=== PATIENT | male | born 1940 | race Caucasian/White ===

== ENCOUNTER 2018-10-13 18:20 | Inpatient (IN) | payer OTHER ==
--- NOTE | 2018-10-13 18:30 | PDOC ---
Attending Attestation - Resident Resident Name: Connie Youngrosalesromeo - ED Attending Attestation I have performed the following: I have examined & evaluated the patient, The case was reviewed & discussed with the resident, I agree w/resident's findings & plan, Exceptions are as noted - HPI HPI: 10/13/18 18:29 78 yo male BIBA from [facility] for sepsis,AMS and ekg changes - Physicial Exam PE: 10/13/18 18:45 78 yo male BIBA with fever,AMS head ncat eyes marcin eomi neck supple lungs rhonchi cvs tachycardia abd protuberant,no guarding skin no erythema neuro nonresponsive upon arrival 10/13/18 23:44 - Medical Decision Making 10/13/18 23:56 Critical care time++ temp 104.2, sepsis work up started UA neg cxr +infiltrates pt initially placed on bipap upon arrival then on nonrebreather ,oxygenation improved trop negative cbc leukocytosis, antibiotics given, BC sent and pt admitted 10/13/18 23:58
--- NOTE | 2018-10-13 18:44 | PDOC ---
History of Present Illness - General Chief Complaint: SIRS, Suspected/Possible Stated Complaint: SICK Time Seen by Provider: 10/13/18 18:29 - History of Present Illness Initial Comments: 78 year old male with PMH of spinal cancer and, COPD, DM presenting with hypoxic respiratory failure and audible adventitious respiratory sounds bilaterally. There were some mild ST elevations on the rhythm strip by EMS so there was concern for STEMI, however that was not evidenced on our stat EKG performed. The patient was slightly altered, mumbling inaudible sounds and making purposeful hand movements with occasional spontaneous eye movements. He was on CPAP without SATs to the low 90s and following commands but non conversational. Per conversation with Shalom Lopez his baseline mental status is following commands but non-conversational. They deny any nausea, vomiting, diarrhea, or other issues at the home. 10/13/18 18:44 Past History - Past Medical History Allergies/Adverse Reactions: Allergies Allergy/AdvReac Type Severity Reaction Status Date / Time No Known Allergies Allergy Verified 10/13/18 18:30 Home Medications: Ambulatory Orders Amlodipine Besylate 10 mg PO DAILY 10/13/18 Folic Acid 1 mg PO DAILY 10/13/18 Insulin Glargine,Hum.rec.anlog [Lantus] 15 unit SQ HS 10/13/18 Linaclotide [Linzess] 145 mcg PO DAILY 10/13/18 Metoprolol Tartrate 50 mg PO BID 10/13/18 Quetiapine Fumarate 12.5 mg PO DAILY 10/13/18 Quetiapine Fumarate [Seroquel -] 25 mg PO HS 10/13/18 Simvastatin 20 mg PO HS 10/13/18 Tamsulosin HCl [Flomax] 0.4 mg PO DAILY 10/13/18 Timolol 0.5% [Timoptic] 0 ml OP DAILY 10/13/18 levETIRAcetam [Keppra -] 500 mg PO BID 10/13/18 COPD: No GI Disorders: (constipation) Disorders: Yes (enlarged prostate) HTN: Yes Hypercholesterolemia: Yes - Suicide/Smoking/Psychosocial Hx Smoking History: Unknown if ever smoked Have you smoked in the past 12 months: No Information on smoking cessation initiated: No Hx Alcohol Use: No Drug/Substance Use Hx: No Review of Systems - Review of Systems Able to Perform ROS?: No (demented at baseline) *Physical Exam - Vital Signs Last Vital Signs Temp Pulse Resp BP Pulse Ox 104.2 F H 109 H 29 H 125/69 94 L 10/13/18 18:40 10/13/18 18:30 10/13/18 18:30 10/13/18 18:30 10/13/18 18:30 - Physical Exam General Appearance: Yes: Nourished, Appropriately Dressed, Apparent Distress, Moderate Distress (respiratory distress) HEENT: positive: EOMI, Normal ENT Inspection. negative: TINO (bilateral pupillary defects likely with previous surgery), Normal Voice Neck: positive: Trachea midline, Normal Thyroid, Supple. negative: Tender, Rigid Respiratory/Chest: positive: Respiratory Distress, Accessory Muscle Use. negative: Lungs Clear (blateral adventitious lung sounds with transmission of upper airway sounds throughout lung verde), Normal Breath Sounds Cardiovascular: positive: Regular Rhythm, Tachycardia. negative: Regular Rate Gastrointestinal/Abdominal: positive: Normal Bowel Sounds, Flat, Soft. negative : Tender Male Genitalia: negative: normal genitalia (erythematous scrotum and penis with casseous material around the glans penis under irwin easily retractible foreskin) , testicular mass, inguinal hernia Lymphatic: negative: Adenopathy, Tenderness Musculoskeletal: positive: Normal Inspection (fairly rigid with resistance on passive movements and occasioanlly following commands), Decreased Range of Motion Extremity: positive: Normal Capillary Refill. negative: Normal Inspection, Normal Range of Motion, Tender Integumentary: positive: Normal Color, Dry, Warm Neurologic: positive: Normal Mood/Affect. negative: Fully Oriented, Alert, Normal Response, Motor Strength 5/5 Moderate Sedation - Procedure Monitoring Vital Signs: Procedure Monitoring Vital Signs Temperature 104.2 F H 10/13/18 18:40 Pulse Rate 109 H 10/13/18 18:30 Respiratory Rate 29 H 10/13/18 18:30 Blood Pressure 125/69 10/13/18 18:30 O2 Sat by Pulse Oximetry (%) 94 L 10/13/18 18:30 ED Treatment Course - LABORATORY CBC & Chemistry Diagram: 10/13/18 18:33 10/13/18 18:33 Medical Decision Making - Medical Decision Making 78 year old male presenting in hypoxic respiratory failure and baseline moderately demented. He was febrile to 104 on presentation and tachycardic. the majority of his symptoms resolved with 1 G IV Tylenol. He was protecting his airway on admission and he was doing well on BiPap so we transitioned him to non -rebreather. His CXR was read as negative but there appeared to be an infiltrate a the left medial lung base concerning for PNA in the setting of hypoxic respiratory failure and productive cough. Patien given vanc, zosyn. 10/13/18 21:16 CTA negative for PE but he did have a right lower lobe PNA. Patient transferred to ICU in stable condition. 10/13/18 23:47 *DC/Admit/Observation/Transfer Diagnosis at time of Disposition: Sepsis due to pneumonia - Discharge Dispostion Condition at time of disposition: Stable Decision to Admit order: Yes - Referrals - Patient Instructions - Post Discharge Activity
[2018-10-13 18:47] LABS: BASO % 0.2 % (0-2.0); HEMATOCRIT 49.7 % (35.4-49); HEMOGLOBIN 16.8 GM/dL (11.7-16.9); LYMPH % 3.8 % (8-40); MCH 29.8 pg (25.7-33.7); MCHC 33.7 g/dl (32.0-35.9); MEAN CELL VOLUME 88.3 fl (80-96); MEAN PLT VOLUME 10.6 fl (7.5-11.1); MONO % 4.4 % (3.8-10.2); NEUT % 91.6 % (42.8-82.8); PLATELET COUNT 160 K/MM3 (134-434); RBC 5.63 M/mm3 (4.00-5.60); RDW 15.1 % (11.9-15.9)
[2018-10-13 18:55] LABS: VENOUS PC02 48.1 mmHg (38-52); VENOUS PH 7.31 (7.32-7.42)
[2018-10-13 18:56] LABS: VENOUS PO2 24.3 mmHg (28-48)
[2018-10-13 19:01] LABS: INR 1.23 (0.83-1.09); PROTHROMBIN TIME (PATIENT) 14.5 SEC (9.7-13.0)
[2018-10-13 19:03] LABS: ACTIVATED PTT 29.4 SECONDS (25.2-36.5)
[2018-10-13 19:10] LABS: URINE APPEARANCE CLEAR; URINE BILIRUBIN NEGATIVE (<2.0 mg/dL); URINE COLOR YELLOW; URINE GLUCOSE (UA) 3+ (NEGATIVE); URINE KETONE TRACE (NEGATIVE); URINE LEUK ESTERASE NEGATIVE (NEGATIVE); URINE NITRITE NEGATIVE (NEGATIVE); URINE PROTEIN NEGATIVE (NEGATIVE)
[2018-10-13 19:23] LABS: URINE MUCUS RARE
[2018-10-13 19:38] LABS: ALBUMIN 3.7 g/dl (3.4-5.0); ALK PHOS 129 U/L (45-117); ANION GAP 12 MMOL/L (8-16); BILIRUBIN,TOTAL 0.5 mg/dL (0.2-1); BLOOD UREA NITROGEN 13 mg/dL (7-18); CALCIUM 8.8 mg/dL (8.5-10.1); CHLORIDE 104 mmol/L (98-107); CO2 23 mmol/L (21-32); CREATININE 1.3 mg/dL (0.55-1.3); POTASSIUM 4.1 mmol/L (3.5-5.1); SGOT/AST 34 U/L (15-37); SGPT/ALT 37 U/L (13-61); SODIUM 139 mmol/L (136-145); TOT PROT 7.3 g/dl (6.4-8.2)
[2018-10-13 19:40] LABS: GLUCOSE,RANDOM 385 mg/dL (74-106)
[2018-10-13] MEDS ORDERED: VANCOMYCIN HCL 2,000 MG in DEXTROSE 5%-WATER - 500 ML IVPB ONE (19:50)
[2018-10-13] MEDS ORDERED: PIPERACILLIN/TAZOB 4.5 GM 4.5 GM in DEXTROSE 5%-WATER 100 ML IVPB ONE (19:52)
--- NOTE | 2018-10-13 20:04 | CONSULT ---
Consult Consult Specialty:: ICU Reason for Consultation:: Sepsis 2/2 PNA - History of Present Illness Chief Complaint: shortness of breath and AMS History of Present Illness: 78 yo M with significant PMHx of IDDM, HTN, HLD and benign neoplasm of spinal meninges presents from [facility] with acute respiratory failure. From chart patient was found to be in respiratory distress and AMS. EMS was called and found patient's O2 sat was in 70's. He was placed on CPAP and transported to [facility]. Upon arrival patient was found to febrile TMax 104 and tachypneic RR 29. According to NH patient at baseline is able to follow simple commands but not conversational. He was initially placed on NIPPV in ER and clinical condition improved. CT chest shows RLL PNA. O2 sat improved to 99% and patient was transitioned to Non rebreather and saturation was 97%. - History Source History Provided By: Medical Record - Past Medical History GRADUATE FELLOW: Yes: Seizure Cardio/Vascular: Yes: HTN, Hyperlipdemia Renal/: Yes: BPH Heme/Onc: Yes: Cancer (benign neoplasm of spinal meninges. ) Psych: Yes: Bipolar Endocrine: Yes: Diabetes Mellitus - Alcohol/Substance Use Hx Alcohol Use: No - Smoking History Smoking history: Unknown if ever smoked Have you smoked in the past 12 months: No - Social History Usual Living Arrangement: Senior Living ADL: Support Services History of Recent Travel: No Home Medications - Allergies Allergies/Adverse Reactions: Allergies Allergy/AdvReac Type Severity Reaction Status Date / Time No Known Allergies Allergy Verified 10/13/18 18:30 - Home Medications Home Medications: Ambulatory Orders Amlodipine Besylate 10 mg PO DAILY 10/13/18 Folic Acid 1 mg PO DAILY 10/13/18 Insulin Glargine,Hum.rec.anlog [Lantus] 15 unit SQ HS 10/13/18 Linaclotide [Linzess] 145 mcg PO DAILY 10/13/18 Metoprolol Tartrate 50 mg PO BID 10/13/18 Quetiapine Fumarate [Seroquel -] 25 mg PO HS 10/13/18 Simvastatin 20 mg PO HS 10/13/18 Tamsulosin HCl [Flomax] 0.4 mg PO DAILY 10/13/18 Timolol 0.5% [Timoptic] 1 drop OU DAILY 10/13/18 levETIRAcetam [Keppra -] 1,000 mg PO BID 10/13/18 Brimonidine/Dorzolamide/Pf [Brimonidine 0.15%-Dorzolam 2%] 1 drop OP TID Quetiapine Fumarate [Seroquel -] 12.5 mg PO DAILY 10/14/18 Family Disease History - Family Disease History Family History: Unable to Obtain Review of Systems Unable to obtain ROS, reason: clincal condition. Physical Exam Vital Signs: Vital Signs Temperature 104.2 F H 10/13/18 18:40 Pulse Rate 109 H 10/13/18 18:30 Respiratory Rate 29 H 10/13/18 18:30 Blood Pressure 125/69 10/13/18 18:30 O2 Sat by Pulse Oximetry (%) 94 L 10/13/18 18:30 Constitutional: Yes: Mild Distress Eyes: Yes: Conjunctiva Clear, Other (right pupil deformity) HENT: Yes: Atraumatic, Normocephalic Neck: Yes: Supple, Trachea Midline Cardiovascular: Yes: Regular Rate and Rhythm, S1, S2. No: JVD, Gallop, Murmur Respiratory: Yes: Diminished, On Venti-Mask, Rales, Rhonchi. No: Accessory Muscle Use Gastrointestinal: Yes: Normal Bowel Sounds, Soft, Abdomen, Obese. No: Distention, Tenderness Renal/: Yes: Navarro Present, Other (penile erythema) Extremities: No: Calf Tenderness, Cold, Cyanosis, Deformity Edema: No Peripheral Pulses WNL: Yes Neurological: Yes: Lethargy, Unsteady Gait, Weakness Labs: CBC, BMP 10/13/18 18:33 10/13/18 18:33 Imaging - Results Chest X-ray: Report Reviewed, Image Reviewed Cat Scan: Image Reviewed (RLL consolidation) EKG: Image Reviewed (Sinus Tach rate 112, left axis, nonspecific Intraventricular block. no st elevation or depression.) Assessment/Plan A:78 yo M with significant PMHx of IDDM, HTN, HLD and benign neoplasm of spinal meninges presents from [facility] with acute respiratory failure found to be septic 2/2 PNA. Plan: NEURO: * lethargic but arousable. * baseline is non-conversational and able to follow simple command. * Does not ambulate at baseline * H/O seizure disorder; continue Levetiracetam 1000mg BID * Bipolar disorder; continue Quetiapine 25mg HS and 12.5 AM. * Neuro checks Q4H PULM: * Acute hypoxic respiratory failure 2/2 RLL PNA * supplemental O2 PRN * VBG shows pH 7.31 Co248.1, O2 24.3 * maintain SpO2>90% * BD TX PRN * Vanco/Zosyn given in ER. * qSOFA 2/3 respiratory rate and AMS, but SBP >90 * Pneumonia severity index score 171 Class V which constitutes 27% mortality. CV: * H/O HTN and HLD * continue amlodipine 10 and metroprolol 50mg BID * Continue Simvastatin HS * BP has been stable- monitor and maintain MAP >65 GI: * ADA diet. * Continue Linzess ID: * Sepsis 2/2 to RLL PNA * health care associated infection. * Vanco/Zosyn empiracally in ER * Influenza A positive - start Oseltamivir. * Blood, urine and sputum cultures sent. * Urine for PNA antigens. * Lactic acid 3.2- repeat in 4 hrs ENDO: * IDDM * found to be hyperglycemic (385) but not in DKA. * ADA diet * ISS with Novolog ACHS * BGM ACHS FEN: * IVF with NS- need 30ml/kg as per Sepsis-3 EGDT = 3L * e-lytes wnl will continue to monitor and replete PRN * ADA diet. PPx: * Heparin SQ TID DISPO: Continue ICU level of care. FULL CODE
[2018-10-13] MEDS ORDERED: ALBUTEROL SO4 2.5/IPRATROPIUM 0.5 INH SOL 3 ML VIAL.NEB. NEB ONE ×2 (21:16→22:04)
[2018-10-13 21:17] LABS: PLATELET ESTIMATE ADEQUATE
[2018-10-13] MEDS ORDERED: PIPERACILLIN/TAZOB 4.5 GM 4.5 GM/100 ML BAG IVPB ONE (21:50)
--- NOTE | 2018-10-13 22:22 | HP ---
CHIEF COMPLAINT: Here from a correction with hypoxia and high grade fever. PCP:Dr. Sandy HISTORY OF PRESENT ILLNESS: 78 year old male from a custodial nursing facility with past medical history of spinal cancer(unknown if undergoing treatment), COPD, and diabetes mellitus who presented with an altered mental status, hypoxic respiratory failure with audible adventitious respiratory sounds, fever and tachycardia. He was initially placed on CPAP with saturations improving to the low 90s and he became more responsive but was non conversational. As per his PCP his baseline mental status is following commands but non-conversational. Upon evaluation in the emergency room he was febrile with a temperature of 104.2 , WBC 14,000, lactic acid is 3.2. CXR showed no acute pathology. He was given one dose of IV Tylenol for fever. He received one dosage of IV vancomycin and pipercillin. He was weaned off CPAP and placed on a 100% nonrebreather and now maintaining oxygen saturation at 94%. He is pending a CT angiogram of chest to exclude pulmonary embolism in setting of hypoxia, tachycardia and malignancy and CT scan of head. He is being admitted to ICU for critical care management . Recent Travel:unable to obtain PAST MEDICAL HISTORY: spinal cancer COPD diabetes mellitus PAST SURGICAL HISTORY: unable to obtain Social History: unable to obtain Family History:unable to obtain Allergies No Known Allergies Allergy (Verified 10/13/18 18:30) HOME MEDICATIONS: unobtainable REVIEW OF SYSTEMS-unable to obtain accurate ROS due to patient mental status CONSTITUTIONAL: Absent: fever, chills, diaphoresis, generalized weakness, malaise, loss of appetite, weight change HEENT: Absent: rhinorrhea, nasal congestion, throat pain, throat swelling, difficulty swallowing, mouth swelling, ear pain, eye pain, visual changes CARDIOVASCULAR: Absent: chest pain, syncope, palpitations, irregular heart rate, lightheadedness , peripheral edema RESPIRATORY: Absent: cough, shortness of breath, dyspnea with exertion, orthopnea, wheezing, stridor, hemoptysis GASTROINTESTINAL: Absent: abdominal pain, abdominal distension, nausea, vomiting, diarrhea, constipation, melena, hematochezia GENITOURINARY: Absent: dysuria, frequency, urgency, hesitancy, hematuria, flank pain, genital pain MUSCULOSKELETAL: Absent: myalgia, arthralgia, joint swelling, back pain, neck pain SKIN: Absent: rash, itching, pallor HEMATOLOGIC/IMMUNOLOGIC: Absent: easy bleeding, easy bruising, lymphadenopathy, frequent infections ENDOCRINE: Absent: unexplained weight gain, unexplained weight loss, heat intolerance, cold intolerance NEUROLOGIC: Absent: headache, focal weakness or paresthesias, dizziness, unsteady gait, seizure, mental status changes, bladder or bowel incontinence PSYCHIATRIC: Absent: anxiety, depression, suicidal or homicidal ideation, hallucinations. PHYSICAL EXAMINATION Vital Signs - 24 hr 10/13/18 10/13/18 10/13/18 18:20 18:28 18:30 Temperature 104.2 F H 104.2 F H Pulse Rate 112 H 109 H Pulse Rate [ 72 Apical] Respiratory 24 H 29 H Rate Blood Pressure 125/69 Blood Pressure 105/82 [Right Arm] O2 Sat by Pulse 94 L 92 L 94 L Oximetry (%) 10/13/18 10/13/18 18:40 20:07 Temperature 104.2 F H 102 F H Pulse Rate Pulse Rate [ 90 Apical] Respiratory 22 H Rate Blood Pressure Blood Pressure 105/82 [Right Arm] O2 Sat by Pulse 94 L Oximetry (%) GENERAL: nonverbal, arousable but very lethargic, minimally opens eyes to verbal or tactile command EYES: eyes equal and round, minimally reactive Lungs: coarse breath sounds, no wheezing no use of accessory muscles HEART: rate tachycardic and rhythm, normal S1 and S2 ABDOMEN: soft, nontender, not distended, normoactive bowel sounds MUSCULOSKELETAL: limited ROM UPPER EXTREMITIES :no cyanosis, no clubbing. LOWER EXTREMITIES: warm to palpation no pitting edema. NEUROLOGICAL: does not follow verbal commands SKIN: warm, dry, normal turgor, no rashes or lesions noted, normal capillary refill Laboratory Results - last 24 hr 10/13/18 10/13/18 10/13/18 18:33 18:33 18:33 WBC 14.0 H RBC 5.63 H Hgb 16.8 Hct 49.7 H MCV 88.3 MCH 29.8 MCHC 33.7 RDW 15.1 Plt Count 160 MPV 10.6 Absolute Neuts (auto) 12.8 H Total Counted 100 Neutrophils % 91.6 H Neutrophils % (Manual) 67.0 Band Neutrophils % 21.0 Lymphocytes % 3.8 L Lymphocytes % (Manual) 4.0 L Monocytes % 4.4 Monocytes % (Manual) 7 Eosinophils % 0.0 Basophils % 0.2 Nucleated RBC % 0 Platelet Estimate Adequate PT with INR 14.50 H INR 1.23 H PTT (Actin FS) 29.4 VBG pH POC VBG pCO2 POC VBG pO2 Mixed VBG HCO3 Sodium Potassium Chloride Carbon Dioxide Anion Gap BUN Creatinine Creat Clearance w eGFR Random Glucose Lactic Acid Calcium Total Bilirubin AST ALT Alkaline Phosphatase Troponin I B-Natriuretic Peptide Total Protein Albumin Urine Color Yellow Urine Appearance Clear Urine pH 6.0 Ur Specific [place] 1.016 Urine Protein Negative Urine Glucose (UA) 3+ H Urine Ketones Trace H Urine Blood 1+ H Urine Nitrite Negative Urine Bilirubin Negative Urine Urobilinogen 2.0 Ur Leukocyte Esterase Negative Urine WBC (Auto) 1 Urine RBC (Auto) <1 Urine Mucus Rare 10/13/18 10/13/18 10/13/18 18:33 18:33 18:33 WBC RBC Hgb Hct MCV MCH MCHC RDW Plt Count MPV Absolute Neuts (auto) Total Counted Neutrophils % Neutrophils % (Manual) Band Neutrophils % Lymphocytes % Lymphocytes % (Manual) Monocytes % Monocytes % (Manual) Eosinophils % Basophils % Nucleated RBC % Platelet Estimate PT with INR INR PTT (Actin FS) VBG pH 7.31 L POC VBG pCO2 48.1 POC VBG pO2 24.3 L Mixed VBG HCO3 23.6 Sodium 139 Potassium 4.1 Chloride 104 Carbon Dioxide 23 Anion Gap 12 BUN 13 Creatinine 1.3 Creat Clearance w eGFR 53.67 Random Glucose 385 H* Lactic Acid 3.2 H* Calcium 8.8 Total Bilirubin 0.5 AST 34 ALT 37 Alkaline Phosphatase 129 H Troponin I B-Natriuretic Peptide Total Protein 7.3 Albumin 3.7 Urine Color Urine Appearance Urine pH Ur Specific [place] Urine Protein Urine Glucose (UA) Urine Ketones Urine Blood Urine Nitrite Urine Bilirubin Urine Urobilinogen Ur Leukocyte Esterase Urine WBC (Auto) Urine RBC (Auto) Urine Mucus 10/13/18 10/13/18 18:33 19:41 WBC RBC Hgb Hct MCV MCH MCHC RDW Plt Count MPV Absolute Neuts (auto) Total Counted Neutrophils % Neutrophils % (Manual) Band Neutrophils % Lymphocytes % Lymphocytes % (Manual) Monocytes % Monocytes % (Manual) Eosinophils % Basophils % Nucleated RBC % Platelet Estimate PT with INR INR PTT (Actin FS) VBG pH POC VBG pCO2 POC VBG pO2 Mixed VBG HCO3 Sodium Potassium Chloride Carbon Dioxide Anion Gap BUN Creatinine Creat Clearance w eGFR Random Glucose Lactic Acid Calcium Total Bilirubin AST ALT Alkaline Phosphatase Troponin I 0.02 B-Natriuretic Peptide 560.5 H Total Protein Albumin Urine Color Urine Appearance Urine pH Ur Specific [place] Urine Protein Urine Glucose (UA) Urine Ketones Urine Blood Urine Nitrite Urine Bilirubin Urine Urobilinogen Ur Leukocyte Esterase Urine WBC (Auto) Urine RBC (Auto) Urine Mucus ASSESSMENT/PLAN: Mr. Chatman is a 78 year old male here from a custodial nursing facility with past medical history of spinal cancer(unknown if undergoing treatment), COPD, hypertension, hyperlipidemia, and diabetes mellitus who presented with an altered mental status, hypoxic respiratory failure with audible adventitious respiratory sounds, fever and tachycardia. He was initially placed on CPAP with saturations improving to the low 90s and he became more responsive but was non conversational. He is being admitted to ICU for acute hypoxic respiratory failure in the setting of sepsis. Acute Hypoxic Respiratory Failure Currently on 100% nonrebreather and maintaining oxygen saturation at 94%, nondyspneic,no use of accessory muscles. On physical exam does not appear to be fluid overloaded despite BNP is 560. Continue with nonrebreather mask to maintain oxygen saturation levels >92%, may require BIPAP if desaturates.Mental status is very lethargic and minimally responsive and nonverbal and likely due to sepsis. CTangiogram is pending to exclude pulmonary embolism in the setting of hypoxia, tachycardia and malignancy. Pulmonary consulted- Dr. Barragan Management as per critical care team. Leukocytosis VBG c02- 48, febrile with elevated lactic acid level of 3.2, no evidence of hypotension, reveived IV fluids and IV vancomycin and pipercillin. UA-negative nitrate and leukoesterase. Blood and urine cultures are pending. Continue with IV pipercillin. Infectious Disease consulted- Dr. Simmons. COPD Exacerbation Continue with albuterol nebulizer treatments q6hr. Manage as per critical care team. Pulmonary Consulted. Altered Mental Status CT scan of head completed, pending review. At baseline patient is nonconversative. Hypertension Controlled.No evidence of hypotension. Continue amlodipine and metoprolol. Diabetes Mellitus Uncontrolled. Accucheks in am and at bedtime. Continue with glargine and insulin as per sliding scale. Check hemoglobin A1c. Hyperlipidemia Continue with statin therapy.LFT's normal. BPH Continue with tamulosin. FEN IVF, NPO, monitor electrolytes. DVT Prophylaxsis SCD's. If CT scan of head negative for hemorrhage add lovenox for DVT prophylaxsis. Visit type - Emergency Visit Emergency Visit: Yes ED Registration Date: 10/13/18 Care time: The patient presented to the Emergency Department on the above date and was hospitalized for further evaluation of their emergent condition. - New Patient This patient is new to me today: Yes Date on this admission: 10/13/18 - Critical Care Critical Care patient: Yes Total Critical Care Time (in minutes): 45 Critical Care Statement: The care of this patient involved high complexity decision making to prevent further life threatening deterioration of the patient 's condition and/or to evaluate & treat vital organ system(s) failure or risk of failure.
[2018-10-13] MEDS: ALBUTEROL SO4 2.5/IPRATROPIUM 0.5 INH SOL 3 ML VIAL.NEB. NEB SCH ×3 (22:29→23:50)
[2018-10-13] MEDS ORDERED: SODIUM CHLORIDE 1,000 ML IV SCH (23:15)
[2018-10-14] MEDS: INSULIN SLIDING SCALE (NOVOLOG) 1 VIAL SQ SCH ×5 (00:10→22:08)
[2018-10-14] MEDS ORDERED: SODIUM CHLORIDE 1,000 ML IV STA ×2 (00:55→11:36)
[2018-10-14] MEDS ORDERED: PIPERACILLIN/TAZOB 2.25 GM 2.25 GM in DEXTROSE 5%-WATER - 50 ML IVPB SCH (02:00)
[2018-10-14] MEDS ORDERED: PIPERACILLIN/TAZOBACTAM 2.25 GM VIAL IVPB ONE ×2 (02:50→09:05)
[2018-10-14] MEDS ORDERED: DEXTROSE 5%-WATER - 50 ML IVPB ONE ×3 (02:51→11:39)
[2018-10-14 06:21] LABS: BASO % 0.1 % (0-2.0); HEMATOCRIT 41.2 % (35.4-49); HEMOGLOBIN 13.7 GM/dL (11.7-16.9); LYMPH % 8.3 % (8-40); MCH 29.3 pg (25.7-33.7); MCHC 33.3 g/dl (32.0-35.9); MEAN CELL VOLUME 88.1 fl (80-96); MEAN PLT VOLUME 10.4 fl (7.5-11.1); MONO % 4.4 % (3.8-10.2); NEUT % 87.2 % (42.8-82.8); PLATELET COUNT 130 K/MM3 (134-434); RBC 4.67 M/mm3 (4.00-5.60); RDW 15.5 % (11.9-15.9); WHITE BLOOD COUNT 13.2 K/mm3 (4.0-10.0)
[2018-10-14 07:02] LABS: ALBUMIN 2.7 g/dl (3.4-5.0); ALK PHOS 92 U/L (45-117); ANION GAP 9 MMOL/L (8-16); BILIRUBIN,TOTAL 0.5 mg/dL (0.2-1); BLOOD UREA NITROGEN 13 mg/dL (7-18); CALCIUM 7.8 mg/dL (8.5-10.1); CHLORIDE 107 mmol/L (98-107); CO2 25 mmol/L (21-32); CREATININE 1.1 mg/dL (0.55-1.3); MAGNESIUM 2.2 mg/dL (1.8-2.4); PHOSPHOROUS 3.5 mg/dL (2.5-4.9); POTASSIUM 4.1 mmol/L (3.5-5.1); SGOT/AST 25 U/L (15-37); SGPT/ALT 31 U/L (13-61); SODIUM 140 mmol/L (136-145); TOT PROT 5.6 g/dl (6.4-8.2)
[2018-10-14 07:21] LABS: GLUCOSE,RANDOM 337 mg/dL (74-106)
--- NOTE | 2018-10-14 08:13 | PN ---
Physical Exam: SUBJECTIVE: Patient seen and examined this AM. Able to follow simple command, Tracks with eyes, Knows his name and that he is in [place]. Continues to tolerate bilevel. No acute overnight events as per nursing staff. OBJECTIVE: Vital Signs Period Temp Pulse Resp BP Sys/Louie Pulse Ox Last 24 Hr 98.4 F-104.2 F 65-112 15-29 105-125/54-82 92-98 GENERAL: A&Ox1, NAD HEAD: NCAT EYES: PERRL ENT: Dry mucous membranes NECK: Supple LUNGS: On Bilevel, Rhonchi throughout HEART: Regular rate and rhythm, S1, S2 without murmur ABDOMEN: Soft, nontender, nondistended, + bowel sounds, no guarding EXTREMITIES: No edema NEUROLOGICAL: Lethargic but easily arousable, Follow simple commands, Intermittent responses to questions SKIN: Warm, dry Laboratory Results - last 24 hr 10/13/18 10/13/18 10/13/18 18:33 18:33 18:33 WBC 14.0 H RBC 5.63 H Hgb 16.8 Hct 49.7 H MCV 88.3 MCH 29.8 MCHC 33.7 RDW 15.1 Plt Count 160 MPV 10.6 Absolute Neuts (auto) 12.8 H Total Counted 100 Neutrophils % 91.6 H Neutrophils % (Manual) 67.0 Band Neutrophils % 21.0 Lymphocytes % 3.8 L Lymphocytes % (Manual) 4.0 L Monocytes % 4.4 Monocytes % (Manual) 7 Eosinophils % 0.0 Basophils % 0.2 Nucleated RBC % 0 Platelet Estimate Adequate PT with INR 14.50 H INR 1.23 H PTT (Actin FS) 29.4 VBG pH POC VBG pCO2 POC VBG pO2 Mixed VBG HCO3 Sodium Potassium Chloride Carbon Dioxide Anion Gap BUN Creatinine Creat Clearance w eGFR POC Glucometer Random Glucose Lactic Acid Calcium Phosphorus Magnesium Total Bilirubin AST ALT Alkaline Phosphatase Troponin I B-Natriuretic Peptide Total Protein Albumin Urine Color Yellow Urine Appearance Clear Urine pH 6.0 Ur Specific [place] 1.016 Urine Protein Negative Urine Glucose (UA) 3+ H Urine Ketones Trace H Urine Blood 1+ H Urine Nitrite Negative Urine Bilirubin Negative Urine Urobilinogen 2.0 Ur Leukocyte Esterase Negative Urine WBC (Auto) 1 Urine RBC (Auto) <1 Urine Mucus Rare Influenza A (Rapid) Influenza B (Rapid) 0310/13/18 10/13/18 18:33 18:33 18:33 WBC RBC Hgb Hct MCV MCH MCHC RDW Plt Count MPV Absolute Neuts (auto) Total Counted Neutrophils % Neutrophils % (Manual) Band Neutrophils % Lymphocytes % Lymphocytes % (Manual) Monocytes % Monocytes % (Manual) Eosinophils % Basophils % Nucleated RBC % Platelet Estimate PT with INR INR PTT (Actin FS) VBG pH 7.31 L POC VBG pCO2 48.1 POC VBG pO2 24.3 L Mixed VBG HCO3 23.6 Sodium 139 Potassium 4.1 Chloride 104 Carbon Dioxide 23 Anion Gap 12 BUN 13 Creatinine 1.3 Creat Clearance w eGFR 53.67 POC Glucometer Random Glucose 385 H* Lactic Acid 3.2 H* Calcium 8.8 Phosphorus Magnesium Total Bilirubin 0.5 AST 34 ALT 37 Alkaline Phosphatase 129 H Troponin I B-Natriuretic Peptide Total Protein 7.3 Albumin 3.7 Urine Color Urine Appearance Urine pH Ur Specific [place] Urine Protein Urine Glucose (UA) Urine Ketones Urine Blood Urine Nitrite Urine Bilirubin Urine Urobilinogen Ur Leukocyte Esterase Urine WBC (Auto) Urine RBC (Auto) Urine Mucus Influenza A (Rapid) Influenza B (Rapid) 10/13/18 10/13/18 10/13/18 18:33 19:41 22:28 WBC RBC Hgb Hct MCV MCH MCHC RDW Plt Count MPV Absolute Neuts (auto) Total Counted Neutrophils % Neutrophils % (Manual) Band Neutrophils % Lymphocytes % Lymphocytes % (Manual) Monocytes % Monocytes % (Manual) Eosinophils % Basophils % Nucleated RBC % Platelet Estimate PT with INR INR PTT (Actin FS) VBG pH POC VBG pCO2 POC VBG pO2 Mixed VBG HCO3 Sodium Potassium Chloride Carbon Dioxide Anion Gap BUN Creatinine Creat Clearance w eGFR POC Glucometer Random Glucose Lactic Acid 3.2 H* Calcium Phosphorus Magnesium Total Bilirubin AST ALT Alkaline Phosphatase Troponin I 0.02 B-Natriuretic Peptide 560.5 H Total Protein Albumin Urine Color Urine Appearance Urine pH Ur Specific [place] Urine Protein Urine Glucose (UA) Urine Ketones Urine Blood Urine Nitrite Urine Bilirubin Urine Urobilinogen Ur Leukocyte Esterase Urine WBC (Auto) Urine RBC (Auto) Urine Mucus Influenza A (Rapid) Influenza B (Rapid) 10/13/18 10/14/18 10/14/18 23:57 00:06 05:30 WBC 13.2 H RBC 4.67 Hgb 13.7 Hct 41.2 D MCV 88.1 MCH 29.3 MCHC 33.3 RDW 15.5 Plt Count 130 L MPV 10.4 Absolute Neuts (auto) 11.5 H Total Counted Neutrophils % 87.2 H Neutrophils % (Manual) Band Neutrophils % Lymphocytes % 8.3 D Lymphocytes % (Manual) Monocytes % 4.4 Monocytes % (Manual) Eosinophils % 0.0 Basophils % 0.1 Nucleated RBC % 0 Platelet Estimate PT with INR INR PTT (Actin FS) VBG pH POC VBG pCO2 POC VBG pO2 Mixed VBG HCO3 Sodium Potassium Chloride Carbon Dioxide Anion Gap BUN Creatinine Creat Clearance w eGFR POC Glucometer 466 Random Glucose Lactic Acid Calcium Phosphorus Magnesium Total Bilirubin AST ALT Alkaline Phosphatase Troponin I B-Natriuretic Peptide Total Protein Albumin Urine Color Urine Appearance Urine pH Ur Specific [place] Urine Protein Urine Glucose (UA) Urine Ketones Urine Blood Urine Nitrite Urine Bilirubin Urine Urobilinogen Ur Leukocyte Esterase Urine WBC (Auto) Urine RBC (Auto) Urine Mucus Influenza A (Rapid) Positive A Influenza B (Rapid) Negative 10/14/18 05:30 WBC RBC Hgb Hct MCV MCH MCHC RDW Plt Count MPV Absolute Neuts (auto) Total Counted Neutrophils % Neutrophils % (Manual) Band Neutrophils % Lymphocytes % Lymphocytes % (Manual) Monocytes % Monocytes % (Manual) Eosinophils % Basophils % Nucleated RBC % Platelet Estimate PT with INR INR PTT (Actin FS) VBG pH POC VBG pCO2 POC VBG pO2 Mixed VBG HCO3 Sodium 140 Potassium 4.1 Chloride 107 Carbon Dioxide 25 Anion Gap 9 BUN 13 Creatinine 1.1 Creat Clearance w eGFR > 60 POC Glucometer Random Glucose 337 H* Lactic Acid Calcium 7.8 L Phosphorus 3.5 Magnesium 2.2 Total Bilirubin 0.5 AST 25 ALT 31 Alkaline Phosphatase 92 Troponin I B-Natriuretic Peptide Total Protein 5.6 L Albumin 2.7 L Urine Color Urine Appearance Urine pH Ur Specific [place] Urine Protein Urine Glucose (UA) Urine Ketones Urine Blood Urine Nitrite Urine Bilirubin Urine Urobilinogen Ur Leukocyte Esterase Urine WBC (Auto) Urine RBC (Auto) Urine Mucus Influenza A (Rapid) Influenza B (Rapid) Active Medications Acetaminophen (Ofirmev Injection -) 1,000 mg IVPB Q6H PRN PRN Reason: FEVER Amlodipine Besylate (Norvasc -) 10 mg PO DAILY [facility] Last Admin: 10/14/18 10:51 Dose: 10 mg Atorvastatin Calcium (Lipitor -) 10 mg PO HS [facility] Chlorhexidine Gluconate (Hibiclens For Decolonization -) 1 applic TP HS [facility] Last Admin: 10/14/18 00:00 Dose: 1 applic Enoxaparin Sodium (Lovenox -) 40 mg SQ DAILY [facility] Folic Acid (Folic Acid -) 1 mg PO DAILY [facility] Last Admin: 10/14/18 10:50 Dose: 1 mg Sodium Chloride (Normal Saline -) 1,000 mls @ 50 mls/hr IV ASDIR BC Stop: 10/14/18 23:12 Last Admin: 10/14/18 02:30 Dose: 50 mls/hr Vancomycin HCl 1,250 mg/ (Dextrose) 250 mls @ 166.667 mls/hr IVPB Q12H [facility]; Protocol Ceftriaxone Sodium 1 gm/ (Dextrose) 50 mls @ 100 mls/hr IVPB DAILY [facility]; Protocol Sodium Chloride (Normal Saline -) 1,000 mls @ 1,000 mls/hr IV ASDIR STA Stop: 10/14/18 12:35 Insulin Aspart (Novolog Vial Sliding Scale -) 1 vial SQ ACHS [facility]; Protocol Last Admin: 10/14/18 06:08 Dose: 8 unit Insulin Detemir (Levemir Vial) 15 units SQ HS [facility] Levetiracetam (Keppra -) 500 mg PO BID [facility] Last Admin: 10/14/18 10:57 Dose: 500 mg Methylprednisolone Sodium Succinate (Solu-Medrol -) 40 mg IVPUSH DAILY [facility] Metoprolol Tartrate (Lopressor -) 50 mg PO BID [facility] Last Admin: 10/14/18 10:57 Dose: 50 mg Mupirocin (Bactroban Ointment (For Decolonization) -) 1 applic NS BID [facility] Stop: 10/18/18 21:59 Last Admin: 10/14/18 10:53 Dose: 1 applic Non-Formulary Medication (Linaclotide [Linzess]) 145 mcg PO DAILY [facility] Oseltamivir Phosphate (Tamiflu -) 75 mg PO BID [facility] Stop: 10/19/18 09:59 Last Admin: 10/14/18 10:52 Dose: 75 mg Quetiapine Fumarate (Seroquel -) 12.5 mg PO DAILY [facility] Last Admin: 10/14/18 10:51 Dose: 12.5 mg Quetiapine Fumarate (Seroquel -) 25 mg PO HS [facility] Tamsulosin HCl (Flomax -) 0.4 mg PO DAILY@0830 [facility] Last Admin: 10/14/18 09:18 Dose: 0.4 mg ASSESSMENT/PLAN: 78 y/o M with PMHx of IDDM, HTN, HLD and benign neoplasm of spinal meninges will be monitored in ICU for acute respiratory failure likely due to sepsis. #Neuro Hx of Seizure Disorder, Bipolar disorder -A&Ox1, NAD -Continue home dose Levetiracetam 1000mg BID, Quetiapine 25mg HS and 12.5 AM. -Neuro checks Q4H -Head CT: Status post post right craniotomy, craniectomy. Right middle cranial fossa lesion. Vasogenic edema - right cerebral hemisphere. No evidence of acute intracranial hemorrhage, herniation. #Cardio Hx of HTN and HLD -Elevated BNP (560.5) -Trop < 0.02 -Continue home dose Amlodipine, Metroprolol, Atorvastatin -Maintain MAP >65 #Pulm Acute Respiratory failure 2/2 RLL PNA Hx of COPD -VBG: pH 7.31 CO2 48.1, O2 24.3 -Bilevel PRN -Supplemental O2 to maintain SpO2 >90% -Duoneb PRN -CXR: No acute chest pathology -Start IV Solumedrol 40mg Q8h #GI Hx of Constipation -Continue home dose Linaclotide #ID: Sepsis Lactic acidosis -Likely due to RLL PNA (Health care associated), Influenza A Positive -qSOFA 2/3 (RR, AMS) -Febrile, Tachycardia, Leukocytosis improving -Lactic acid 3.2 x 2; Trend -UA negative for UTI -Blood, urine, sputum cx, Urine Ag, MRSA Screen pending -S/P 1L NS in ED; Will Bolus 1L now, then continue NS @ 50 mls/hr -Given Vanco 2g, Piperacillin Tazobactam 4.5g in ED; Continue Vanco 1250mg Q12H , Ceftriaxone 1gm Daily -Started on Oseltamavir 75mg BID (Started on 10/14) -IV Ofirmev Q6H PRN for fever -Dr. Simmons consulted -Vitals Q2H -Droplet Isolation #Endo Hx of IDDM -Hyperglycemic (385) on admission; BG remains elevated -A1c 9.5% -ISS BGMs ACHS -Detemir 15u HS #Heme Thrombocytopenia -Likely due to sepsis -Continue to monitor #Renal Hx of BPH -Continue home dose Tamsulosin -Continue to monitor urine output, I&O's #FEN -NS @ 50 mls/hr -Replete lytes PRN -NPO for now #PPx -DVT: Lovenox Code Status: Full code Dispo: Transfer to Med-Surg Visit type - Emergency Visit Emergency Visit: Yes ED Registration Date: 10/13/18 Care time: The patient presented to the Emergency Department on the above date and was hospitalized for further evaluation of their emergent condition. - New Patient This patient is new to me today: Yes Date on this admission: 10/14/18 - Critical Care Critical Care patient: Yes Total Critical Care Time (in minutes): 36 Critical Care Statement: The care of this patient involved high complexity decision making to prevent further life threatening deterioration of the patient 's condition and/or to evaluate & treat vital organ system(s) failure or risk of failure.
[2018-10-14] MEDS: TAMSULOSIN HCL 0.4 MG CAP PO SCH (09:18)
--- NOTE | 2018-10-14 10:11 | PN ---
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 (short form) - Note 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: ID consult dictated imp/reccd 78 yo man admitted from [place] with fever and lethargy found to have RLL infiltrate on chest ct elevated lactic acid hypoxia given vancomycin and zosyn in ED influenza A antigen positive respiratory failure influenza RLL pneumonia no history of MDRO plan vanco/ceftriaxone Tamiflu droplet isolation screen nares for MRSA urinary antigens for pneumonia Problem List - Problems (1) Respiratory failure Code(s): J96.90 - RESPIRATORY FAILURE, UNSP, UNSP W HYPOXIA OR HYPERCAPNIA (2) Influenza A Code(s): J10.1 - FLU DUE TO OTH IDENT INFLUENZA VIRUS W OTH RESP MANIFEST (3) Sepsis due to pneumonia Code(s): J18.9 - PNEUMONIA, UNSPECIFIED ORGANISM; A41.9 - SEPSIS, UNSPECIFIED ORGANISM
[2018-10-14] MEDS: FOLIC ACID 1 MG TABLET (FP) PO SCH (10:50)
[2018-10-14] MEDS: amLODIPine BESYLATE 10 MG TABLET (FP) PO SCH (10:51)
[2018-10-14] MEDS: QUEtiapine FUMARATE 25 MG TABLET (FP) PO SCH ×2 (10:51→21:41)
[2018-10-14] MEDS: OSELTAMIVIR PHOSPHATE 75 MG CAPSULE PO SCH ×2 (10:52→21:41)
[2018-10-14] MEDS: MUPIROCIN 2% TOPICAL OINTMENT FOR DECOLONIZATION NS SCH ×3 (10:53→21:38)
[2018-10-14] MEDS: METOPROLOL TARTRATE 50 MG TABLET (FP) PO SCH ×2 (10:57→21:40)
[2018-10-14] MEDS: levETIRAcetam 500 MG TABLET (FP) PO SCH ×2 (10:57→21:39)
--- NOTE | 2018-10-14 11:16 | PN ---
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, Physician Chief Complaint: currently off bipap on venti mask leukocytosis and elevated lactic acid droplet precautions CTA no PE RLL consolidation - Current Medication List Current Medications: Active Medications Amlodipine Besylate (Norvasc -) 10 mg PO DAILY [facility] Last Admin: 10/14/18 10:51 Dose: 10 mg Atorvastatin Calcium (Lipitor -) 10 mg PO [facility] Chlorhexidine Gluconate (Hibiclens For Decolonization -) 1 applic TP HS [facility] Last Admin: 10/14/18 00:00 Dose: 1 applic Folic Acid (Folic Acid -) 1 mg PO DAILY [facility] Last Admin: 10/14/18 10:50 Dose: 1 mg Sodium Chloride (Normal Saline -) 1,000 mls @ 50 mls/hr IV ASDIR [facility] Stop: 10/14/18 23:12 Last Admin: 10/14/18 02:30 Dose: 50 mls/hr Vancomycin HCl 1,250 mg/ (Dextrose) 250 mls @ 166.667 mls/hr IVPB Q12H [facility]; Protocol Insulin Aspart (Novolog Vial Sliding Scale -) 1 vial SQ [facility]; Protocol Last Admin: 10/14/18 06:08 Dose: 8 unit Insulin Detemir (Levemir Vial) 15 units SQ [facility] Levetiracetam (Keppra -) 500 mg PO BID [facility] Last Admin: 10/14/18 10:57 Dose: 500 mg Metoprolol Tartrate (Lopressor -) 50 mg PO BID [facility] Last Admin: 10/14/18 10:57 Dose: 50 mg Mupirocin (Bactroban Ointment (For Decolonization) -) 1 applic NS BID [facility] Stop: 10/18/18 21:59 Last Admin: 10/14/18 10:53 Dose: 1 applic Non-Formulary Medication (Linaclotide [Linzess]) 145 mcg PO DAILY [facility] Oseltamivir Phosphate (Tamiflu -) 75 mg PO BID [facility] Stop: 10/19/18 09:59 Last Admin: 10/14/18 10:52 Dose: 75 mg Quetiapine Fumarate (Seroquel -) 12.5 mg PO DAILY [facility] Last Admin: 10/14/18 10:51 Dose: 12.5 mg Quetiapine Fumarate (Seroquel -) 25 mg PO [facility] Tamsulosin HCl (Flomax -) 0.4 mg PO DAILY@0830 [facility] Last Admin: 10/14/18 09:18 Dose: 0.4 mg - Objective Vital Signs: Vital Signs Temperature 99.9 F H 10/14/18 08:00 Pulse Rate 74 10/14/18 08:00 Respiratory Rate 16 10/14/18 09:00 Blood Pressure 112/73 10/14/18 08:00 O2 Sat by Pulse Oximetry (%) 99 10/14/18 09:00 Constitutional: Yes: Calm Cardiovascular: Yes: Regular Rate and Rhythm, S1, S2 Respiratory: Yes: Diminished, On Venti-Mask Gastrointestinal: Yes: Normal Bowel Sounds, Soft Labs: CBC, BMP 10/14/18 05:30 10/14/18 05:30 INR, PTT INR 1.23 (0.83-1.09) H 10/13/18 18:33 Problem List - Problems (1) Influenza A Assessment/Plan: droplet precautions tamiflu Code(s): J10.1 - FLU DUE TO OTH IDENT INFLUENZA VIRUS W OTH RESP MANIFEST (2) Sepsis due to pneumonia Assessment/Plan: venti mask duonebs off bipap ceftriaxone /vancomycin Code(s): J18.9 - PNEUMONIA, UNSPECIFIED ORGANISM; A41.9 - SEPSIS, UNSPECIFIED ORGANISM (3) Diabetes Assessment/Plan: bgm hga1c noted 9.2 levemir sliding scale Code(s): E11.9 - TYPE 2 DIABETES MELLITUS WITHOUT COMPLICATIONS Qualifiers: Diabetes mellitus type: type 2 (4) BPH (benign prostatic hyperplasia) Assessment/Plan: flomax Code(s): N40.0 - BENIGN PROSTATIC HYPERPLASIA WITHOUT LOWER URINRY TRACT SYMP
[2018-10-14] MEDS ORDERED: cefTRIAXone SODIUM 1 GM VIAL ONE (11:39)
[2018-10-14] MEDS ORDERED: ACETAMINOPHEN 1000 MG/100 ML VIAL (NON FORMULARY) IVPB PRN (11:42)
--- NOTE | 2018-10-14 11:44 | PN ---
Teaching Attending Note Name of Resident: Elizabeth Miguel ATTENDING PHYSICIAN STATEMENT I saw and evaluated the patient. I reviewed the resident's note and discussed the case with the resident. I agree with the resident's findings and plan as documented. SUBJECTIVE: Pt seen and examined in the ICU. Breathing better today on BiPAP but still desaturates off oxygen. OBJECTIVE: Vital Signs Period Temp Pulse Resp BP Sys/Louie Pulse Ox Last 24 Hr 98.4 F-104.2 F 65-112 15-29 105-125/54-82 92-99 Intake & Output 10/11/18 10/12/18 10/13/18 10/14/18 23:59 23:59 23:59 23:59 Intake Total 1750 Output Total 900 Balance 850 Weight 81.647 kg 81.647 kg Gen: mildly tachypneic at rest Heart: RRR Lung: decreased breath sounds at the bases Abd: soft, nontender Ext: no edema CBC, BMP 10/14/18 05:30 10/14/18 05:30 Active Medications Amlodipine Besylate (Norvasc -) 10 mg PO DAILY [facility] Last Admin: 10/14/18 10:51 Dose: 10 mg Atorvastatin Calcium (Lipitor -) 10 mg PO HS [facility] Chlorhexidine Gluconate (Hibiclens For Decolonization -) 1 applic TP HS [facility] Last Admin: 10/14/18 00:00 Dose: 1 applic Enoxaparin Sodium (Lovenox -) 40 mg SQ DAILY [facility] Folic Acid (Folic Acid -) 1 mg PO DAILY [facility] Last Admin: 10/14/18 10:50 Dose: 1 mg Sodium Chloride (Normal Saline -) 1,000 mls @ 50 mls/hr IV ASDIR [facility] Stop: 10/14/18 23:12 Last Admin: 10/14/18 02:30 Dose: 50 mls/hr Vancomycin HCl 1,250 mg/ (Dextrose) 250 mls @ 166.667 mls/hr IVPB Q12H [facility]; Protocol Ceftriaxone Sodium 1 gm/ (Dextrose) 50 mls @ 100 mls/hr IVPB DAILY [facility]; Protocol Sodium Chloride (Normal Saline -) 1,000 mls @ 1,000 mls/hr IV ASDIR STA Stop: 10/14/18 12:35 Insulin Aspart (Novolog Vial Sliding Scale -) 1 vial SQ ACHS [facility]; Protocol Last Admin: 10/14/18 06:08 Dose: 8 unit Insulin Detemir (Levemir Vial) 15 units SQ [facility] Levetiracetam (Keppra -) 500 mg PO BID [facility] Last Admin: 10/14/18 10:57 Dose: 500 mg Metoprolol Tartrate (Lopressor -) 50 mg PO BID [facility] Last Admin: 10/14/18 10:57 Dose: 50 mg Mupirocin (Bactroban Ointment (For Decolonization) -) 1 applic NS BID [facility] Stop: 10/18/18 21:59 Last Admin: 10/14/18 10:53 Dose: 1 applic Non-Formulary Medication (Linaclotide [Linzess]) 145 mcg PO DAILY [facility] Oseltamivir Phosphate (Tamiflu -) 75 mg PO BID [facility] Stop: 10/19/18 09:59 Last Admin: 10/14/18 10:52 Dose: 75 mg Quetiapine Fumarate (Seroquel -) 12.5 mg PO DAILY [facility] Last Admin: 10/14/18 10:51 Dose: 12.5 mg Quetiapine Fumarate (Seroquel -) 25 mg PO [facility] Tamsulosin HCl (Flomax -) 0.4 mg PO DAILY@0830 [facility] Last Admin: 10/14/18 09:18 Dose: 0.4 mg ASSESSMENT AND PLAN: Acute Hypoxic Respiratory Failure Pneumonia Influenza A Severe Sepsis Lactic Acidosis Acute COPD Exacerbation Altered Mental Status improving HTN - continue antibiotics - f/u cultures - tamiflu - short course of medrol - inhaled bronchodilators - O2 to keep Spo2 >90% - BiPAP as needed to assist in work of breathing - glucose control while on systemic steroids - DVT prophylaxis - can monitor on floor critical care time spent in reviewing chart, evaluating patient and formulating plan 35 min
[2018-10-14] MEDS: CEFTRIAXONE 1 GM in DEXTROSE 5%-WATER - 50 ML IVPB SCH (11:50)
[2018-10-14] MEDS: VANCOMYCIN HCL 1,250 MG in DEXTROSE 5%-WATER - 250 ML IVPB SCH ×2 (11:50→23:45)
[2018-10-14] MEDS: methylPREDNISolone NA SUCC 40 MG/1 ML VIAL IVPUSH SCH (11:56)
[2018-10-14] MEDS: ENOXAPARIN NA (PORCINE) 40 MG/0.4 ML DISP.SYRIN SQ SCH (11:56)
--- NOTE | 2018-10-14 14:25 | CONSULT ---
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 ) Psych: Yes: Bipolar Endocrine: Yes: Diabetes Mellitus - Smoking History Smoking history: Unknown if ever smoked Have you smoked in the past 12 months: No - Alcohol/Substance Use Hx Alcohol Use: No - Social History ADL: Support Services History of Recent Travel: No History - Admission Reason For Visit: ACUTE RESPIRATORY FAILURE WITH HYPOXIA - Diagnostics X-ray: Report Reviewed CT Scan: Report Reviewed (s/p R craniotomy) - General Mental Status: Able to Follow Commands, Vague, Lethargic Ability to Follow Directions: Fair - Hearing Hearing: Normal Speech Evaluation - Communication Primary Language: [id number] Communication: Yes: Dysarthria (Imprecise and slow, but lethargic. Baseline?) Oral Expression Ability: Yes: Mild Impairment - Speech Production Able to Make Needs Known: Yes: Mildly Impaired Intelligibility: Yes: Mildly Impaired - Speech Characteristics Voice Loudness: Normal Voice Pitch: Yes: Normal Voice Phonatory-based Quality: Yes: Normal Speech Clarity: < 75% Nasal Resonance: Normal Articulation: Yes: Imprecise Rate of Speech: Too Slow - Language/Auditory Comprehension Follows: Yes: 1 Stage Simple Commands - Language/Verbal Expression Able to Respond to Simple Queries: Yes: WNL ("My name is Anthony.") Able to Communicate Wants and Needs: Yes: WNL - Swallow Evaluation/Bedside Assessment Current Nutritional Intake: NPO Oral Secretions: Yes: WFL Dentition: Yes: Edentulous (a couple of teeth) Facial Symmetry at Rest: Symmetrical Facial Symmetry on Retraction: Symmetrical Lingual Movement: Normal, Symmetric Labial Seal: WFL Oral Prep Time: Increased Timing of Swallow: Delayed Coughing/Throat Clear: No Change in Voice: No Recommendations - Speech Evaluation, Impression/Plan Impression: Lethargic but briefly arousable, not fully. Articulation slow and mildly imprecise sec lethargy vs baseline dysarthria with h/o R craniotomy. 3 oz water test (-) - Dysphagia Impressions/Plan Dysphagia Impressions: Minimal Impairment *Silent aspiration: cannot be R/O at bedside Dysphagia Treatment Plan: Small Bites, Chin Tuck/Down, Facilitative Feeding, Safe Rate, 1/2 tsp. at a time, Elevate HOB during feed, Other (Feed only when alert) - Recommendations Diet Consistency: Dysphagia Pureed Medication Administration: Crushed with applesauce Liquids: Thin Liquids Supplement: Ensure
[2018-10-14] MEDS: CHLORHEXIDINE GLUCONATE 4% CLEANSER FOR DECOLONIZATION TP SCH ×2 (21:39)
[2018-10-14] MEDS: ATORVASTATIN CA 10 MG TABLET (FP) PO SCH (21:40)
[2018-10-14] MEDS: INSULIN (LEVEMIR) 100 UNITS/ML UNITS SQ SCH (21:42)
[2018-10-15] MEDS ORDERED: PT OWN MED DRAWER 7, Y5N ONE ×2 (00:35→11:02)
[2018-10-15] MEDS: INSULIN SLIDING SCALE (NOVOLOG) 1 VIAL SQ SCH ×4 (06:00→22:28)
[2018-10-15 06:53] LABS: ALBUMIN 2.6 g/dl (3.4-5.0); ALK PHOS 83 U/L (45-117); ANION GAP 7 MMOL/L (8-16); BILIRUBIN,TOTAL 0.4 mg/dL (0.2-1); BLOOD UREA NITROGEN 12 mg/dL (7-18); CALCIUM 8.4 mg/dL (8.5-10.1); CHLORIDE 111 mmol/L (98-107); CO2 24 mmol/L (21-32); CREATININE 0.6 mg/dL (0.55-1.3); GLUCOSE,RANDOM 243 mg/dL (74-106); PHOSPHOROUS 2.4 mg/dL (2.5-4.9); POTASSIUM 4.1 mmol/L (3.5-5.1); SGOT/AST 18 U/L (15-37); SGPT/ALT 23 U/L (13-61); SODIUM 142 mmol/L (136-145); TOT PROT 5.7 g/dl (6.4-8.2)
[2018-10-15 06:58] LABS: BASO % 0.1 % (0-2.0); HEMATOCRIT 40.5 % (35.4-49); LYMPH % 7.6 % (8-40); MCH 30.4 pg (25.7-33.7); MCHC 34.7 g/dl (32.0-35.9); MEAN CELL VOLUME 87.6 fl (80-96); MEAN PLT VOLUME 10.5 fl (7.5-11.1); MONO % 2.6 % (3.8-10.2); NEUT % 89.7 % (42.8-82.8); PLATELET COUNT 138 K/MM3 (134-434); RBC 4.62 M/mm3 (4.00-5.60); WHITE BLOOD COUNT 12.8 K/mm3 (4.0-10.0)
--- NOTE | 2018-10-15 08:48 | PN ---
Physical Exam: SUBJECTIVE: Patient seen and examined this AM. Confused speech but more conversational. Knows his name but is unable to identify location or time. Refuses to use facemask. No acute overnight events as per nursing staff. OBJECTIVE: Vital Signs Period Temp Pulse Resp BP Sys/Louie Pulse Ox Last 24 Hr 98.4 F-101.4 F 63-85 16-26 107-141/48-75 93-99 GENERAL: A&Ox1 (to person only), NAD HEAD: NCAT EYES: PERRL ENT: Moist mucous membranes NECK: Supple LUNGS: Diminished breath sounds at the bases, Rhonchi heard in the upper lobes HEART: Regular rate and rhythm, S1, S2 without murmur ABDOMEN: Soft, nontender, nondistended, + bowel sounds, no guarding EXTREMITIES: No edema NEUROLOGICAL: Awake, Follow simple commands, Confused speech SKIN: Warm, dry Laboratory Results - last 24 hr 10/14/18 10/14/18 10/14/18 05:16 08:25 12:00 WBC RBC Hgb Hct MCV MCH MCHC RDW Plt Count MPV Absolute Neuts (auto) Neutrophils % Lymphocytes % Monocytes % Eosinophils % Basophils % Nucleated RBC % Sodium Potassium Chloride Carbon Dioxide Anion Gap BUN Creatinine Creat Clearance w eGFR POC Glucometer 347 103 Random Glucose Lactic Acid 2.4 H* Calcium Phosphorus Magnesium Total Bilirubin AST ALT Alkaline Phosphatase Total Protein Albumin 10/14/18 10/14/18 10/15/18 18:19 21:55 05:30 WBC 12.8 H RBC 4.62 Hgb 14.0 Hct 40.5 MCV 87.6 MCH 30.4 MCHC 34.7 RDW 15.0 Plt Count 138 MPV 10.5 Absolute Neuts (auto) 11.5 H Neutrophils % 89.7 H Lymphocytes % 7.6 L Monocytes % 2.6 L Eosinophils % 0.0 Basophils % 0.1 Nucleated RBC % 0 Sodium Potassium Chloride Carbon Dioxide Anion Gap BUN Creatinine Creat Clearance w eGFR POC Glucometer 226 323 Random Glucose Lactic Acid Calcium Phosphorus Magnesium Total Bilirubin AST ALT Alkaline Phosphatase Total Protein Albumin 10/15/18 10/15/18 05:30 05:57 WBC RBC Hgb Hct MCV MCH MCHC RDW Plt Count MPV Absolute Neuts (auto) Neutrophils % Lymphocytes % Monocytes % Eosinophils % Basophils % Nucleated RBC % Sodium 142 Potassium 4.1 Chloride 111 H Carbon Dioxide 24 Anion Gap 7 L BUN 12 Creatinine 0.6 Creat Clearance w eGFR > 60 POC Glucometer 230 Random Glucose 243 H Lactic Acid Calcium 8.4 L Phosphorus 2.4 L Magnesium 2.0 Total Bilirubin 0.4 AST 18 ALT 23 Alkaline Phosphatase 83 Total Protein 5.7 L Albumin 2.6 L Microbiology 10/13/18 18:33 Blood - Peripheral Venous Blood Culture - Preliminary NO GROWTH OBTAINED AFTER 24 HOURS, INCUBATION TO CONTINUE FOR 4 DAYS. 10/13/18 18:15 Blood - Peripheral Venous Blood Culture - Preliminary NO GROWTH OBTAINED AFTER 24 HOURS, INCUBATION TO CONTINUE FOR 4 DAYS. 10/14/18 11:00 Urine For Antigen Detection Legionella Antigen - Final 10/14/18 11:00 Urine For Antigen Detection Streptococcus pneumoniae Antigen (M - Final Active Medications Acetaminophen (Ofirmev Injection -) 1,000 mg IVPB Q6H PRN PRN Reason: FEVER Last Admin: 10/14/18 11:55 Dose: 1,000 mg Amlodipine Besylate (Norvasc -) 10 mg PO DAILY [facility] Last Admin: 10/14/18 10:51 Dose: 10 mg Atorvastatin Calcium (Lipitor -) 10 mg PO HS [facility] Last Admin: 10/14/18 21:40 Dose: 10 mg Chlorhexidine Gluconate (Hibiclens For Decolonization -) 1 applic TP HS [facility] Last Admin: 10/14/18 21:39 Dose: 1 applic Enoxaparin Sodium (Lovenox -) 40 mg SQ DAILY [facility] Last Admin: 10/14/18 11:56 Dose: 40 mg Folic Acid (Folic Acid -) 1 mg PO DAILY [facility] Last Admin: 10/14/18 10:50 Dose: 1 mg Vancomycin HCl 1,250 mg/ (Dextrose) 250 mls @ 166.667 mls/hr IVPB Q12H [facility]; Protocol Last Admin: 10/14/18 23:45 Dose: 166.667 mls/hr Ceftriaxone Sodium 1 gm/ (Dextrose) 50 mls @ 100 mls/hr IVPB DAILY [facility]; Protocol Last Admin: 10/14/18 11:50 Dose: 100 mls/hr Insulin Aspart (Novolog Vial Sliding Scale -) 1 vial SQ [facility]; Protocol Last Admin: 10/15/18 06:00 Dose: 4 unit Insulin Detemir (Levemir Vial) 15 units SQ [facility] Last Admin: 10/14/18 21:42 Dose: 15 units Levetiracetam (Keppra -) 500 mg PO BID [facility] Last Admin: 10/14/18 21:39 Dose: 500 mg Methylprednisolone Sodium Succinate (Solu-Medrol -) 40 mg IVPUSH DAILY [facility] Last Admin: 10/14/18 11:56 Dose: 40 mg Metoprolol Tartrate (Lopressor -) 50 mg PO BID [facility] Last Admin: 10/14/18 21:40 Dose: 50 mg Mupirocin (Bactroban Ointment (For Decolonization) -) 1 applic NS BID [facility] Stop: 10/18/18 21:59 Last Admin: 10/14/18 21:38 Dose: 1 applic Non-Formulary Medication (Linaclotide [Linzess]) 145 mcg PO DAILY [facility] Oseltamivir Phosphate (Tamiflu -) 75 mg PO BID [facility] Stop: 10/19/18 09:59 Last Admin: 10/14/18 21:41 Dose: 75 mg Quetiapine Fumarate (Seroquel -) 12.5 mg PO DAILY [facility] Last Admin: 10/14/18 10:51 Dose: 12.5 mg Quetiapine Fumarate (Seroquel -) 25 mg PO HS [facility] Last Admin: 10/14/18 21:41 Dose: 25 mg Tamsulosin HCl (Flomax -) 0.4 mg PO DAILY@0830 [facility] Last Admin: 10/14/18 09:18 Dose: 0.4 mg ASSESSMENT/PLAN: 78 y/o M with PMHx of IDDM, HTN, HLD and benign neoplasm of spinal meninges will be monitored in ICU for acute respiratory failure likely due to sepsis. #Neuro Hx of Seizure Disorder, Bipolar disorder -A&Ox1, NAD -Continue home dose Levetiracetam 1000mg BID, Quetiapine 25mg HS and 12.5 AM. -Neuro checks Q4H #Cardio Hx of HTN and HLD -Continue home dose Amlodipine, Metroprolol, Atorvastatin -Maintain MAP >65 #Pulm Acute Respiratory failure 2/2 RLL PNA Hx of COPD -Bilevel PRN -Supplemental O2 to maintain SpO2 >90% -Duoneb PRN -Continue IV Solumedrol 40mg Q8h #GI Hx of Constipation -Continue home dose Linaclotide #ID: Sepsis Lactic acidosis -Likely due to RLL PNA (Health care associated), Influenza A Positive -qSOFA 2/3 (RR, AMS) on admission -Afebrile overnight -Blood, urine, sputum cx, MRSA Screen pending -Urine Ag negative -Continue NS @ 50 mls/hr -Continue Vanco 1250mg Q12H, Ceftriaxone 1gm Daily, Oseltamavir 75mg BID ( Started on 10/14) -IV Ofirmev Q6H PRN for fever -Dr. Simmons consulted -Vitals Q2H -Droplet Isolation #Endo Hx of IDDM -Hyperglycemic (385) on admission; BG remains elevated -Now in the setting of Medrol use -A1c 9.5% -ISS BGMs ACHS -Detemir 15u HS #Heme Thrombocytopenia -Likely due to sepsis -Continue to monitor #Renal Hx of BPH -Continue home dose Tamsulosin -Continue to monitor urine output, I&O's #FEN -NS @ 50 mls/hr -Replete lytes PRN -Puree diet #PPx -DVT: Lovenox Code Status: Full code Dispo: Transfer to [facility]-S[facility] Visit type - Emergency Visit Emergency Visit: Yes ED Registration Date: 10/13/18 Care time: The patient presented to the Emergency Department on the above date and was hospitalized for further evaluation of their emergent condition. - New Patient This patient is new to me today: No - Critical Care Critical Care patient: Yes Total Critical Care Time (in minutes): 36 Critical Care Statement: The care of this patient involved high complexity decision making to prevent further life threatening deterioration of the patient 's condition and/or to evaluate & treat vital organ system(s) failure or risk of failure.
[2018-10-15] MEDS: TAMSULOSIN HCL 0.4 MG CAP PO SCH (09:00)
--- NOTE | 2018-10-15 09:17 | PN ---
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, Physician - Current Medication List Current Medications: Active Medications Acetaminophen (Ofirmev Injection -) 1,000 mg IVPB Q6H PRN PRN Reason: FEVER Last Admin: 10/14/18 11:55 Dose: 1,000 mg Amlodipine Besylate (Norvasc -) 10 mg PO DAILY [facility] Last Admin: 10/14/18 10:51 Dose: 10 mg Atorvastatin Calcium (Lipitor -) 10 mg PO HS [facility] Last Admin: 10/14/18 21:40 Dose: 10 mg Chlorhexidine Gluconate (Hibiclens For Decolonization -) 1 applic TP HS [facility] Last Admin: 10/14/18 21:39 Dose: 1 applic Enoxaparin Sodium (Lovenox -) 40 mg SQ DAILY [facility] Last Admin: 10/14/18 11:56 Dose: 40 mg Folic Acid (Folic Acid -) 1 mg PO DAILY [facility] Last Admin: 10/14/18 10:50 Dose: 1 mg Vancomycin HCl 1,250 mg/ (Dextrose) 250 mls @ 166.667 mls/hr IVPB Q12H [facility]; Protocol Last Admin: 10/14/18 23:45 Dose: 166.667 mls/hr Ceftriaxone Sodium 1 gm/ (Dextrose) 50 mls @ 100 mls/hr IVPB DAILY [facility]; Protocol Last Admin: 10/14/18 11:50 Dose: 100 mls/hr Insulin Aspart (Novolog Vial Sliding Scale -) 1 vial SQ ACHS [facility]; Protocol Last Admin: 10/15/18 06:00 Dose: 4 unit Insulin Detemir (Levemir Vial) 15 units SQ [facility] Last Admin: 10/14/18 21:42 Dose: 15 units Levetiracetam (Keppra -) 500 mg PO BID [facility] Last Admin: 10/14/18 21:39 Dose: 500 mg Methylprednisolone Sodium Succinate (Solu-Medrol -) 40 mg IVPUSH DAILY [facility] Last Admin: 10/14/18 11:56 Dose: 40 mg Metoprolol Tartrate (Lopressor -) 50 mg PO BID [facility] Last Admin: 10/14/18 21:40 Dose: 50 mg Mupirocin (Bactroban Ointment (For Decolonization) -) 1 applic NS BID [facility] Stop: 10/18/18 21:59 Last Admin: 10/14/18 21:38 Dose: 1 applic Non-Formulary Medication (Linaclotide [Linzess]) 145 mcg PO DAILY [facility] Oseltamivir Phosphate (Tamiflu -) 75 mg PO BID [facility] Stop: 10/19/18 09:59 Last Admin: 10/14/18 21:41 Dose: 75 mg Quetiapine Fumarate (Seroquel -) 12.5 mg PO DAILY [facility] Last Admin: 10/14/18 10:51 Dose: 12.5 mg Quetiapine Fumarate (Seroquel -) 25 mg PO HS [facility] Last Admin: 10/14/18 21:41 Dose: 25 mg Tamsulosin HCl (Flomax -) 0.4 mg PO DAILY@0830 [facility] Last Admin: 10/14/18 09:18 Dose: 0.4 mg - Objective Vital Signs: Vital Signs Temperature 99.1 F 10/15/18 06:00 Pulse Rate 70 10/15/18 06:00 Respiratory Rate 20 10/15/18 06:00 Blood Pressure 136/61 10/15/18 06:00 O2 Sat by Pulse Oximetry (%) 95 10/15/18 08:18 Cardiovascular: Yes: S1, S2 Respiratory: Yes: On Nasal O2, Rales Gastrointestinal: Yes: Normal Bowel Sounds, Soft Labs: CBC, BMP 10/15/18 05:30 10/15/18 05:30 INR, PTT INR 1.23 (0.83-1.09) H 10/13/18 18:33 Problem List - Problems (1) Pneumonia Assessment/Plan: cta--no pe-RLL consolidation venti mask duonebs off bipap ceftriaxone /vancomycin Code(s): J18.9 - PNEUMONIA, UNSPECIFIED ORGANISM (2) Diabetes Assessment/Plan: bg Code(s): E11.9 - TYPE 2 DIABETES MELLITUS WITHOUT COMPLICATIONS Qualifiers: Diabetes mellitus type: type 2 (3) Influenza A Assessment/Plan: droplet precautions tamiflu Code(s): J10.1 - FLU DUE TO OTH IDENT INFLUENZA VIRUS W OTH RESP MANIFEST (4) Sepsis due to pneumonia Assessment/Plan: as above Code(s): J18.9 - PNEUMONIA, UNSPECIFIED ORGANISM; A41.9 - SEPSIS, UNSPECIFIED ORGANISM
[2018-10-15] MEDS: MUPIROCIN 2% TOPICAL OINTMENT FOR DECOLONIZATION NS SCH ×2 (10:00→22:19)
[2018-10-15] MEDS ORDERED: DEXTROSE 5%-WATER - 50 ML IVPB ONE (11:02)
[2018-10-15] MEDS ORDERED: cefTRIAXone SODIUM 1 GM VIAL ONE (11:02)
[2018-10-15] MEDS: FOLIC ACID 1 MG TABLET (FP) PO SCH (11:08)
[2018-10-15] MEDS: levETIRAcetam 500 MG TABLET (FP) PO SCH ×2 (11:10→22:28)
[2018-10-15] MEDS: ENOXAPARIN NA (PORCINE) 40 MG/0.4 ML DISP.SYRIN SQ SCH (11:11)
[2018-10-15] MEDS: METOPROLOL TARTRATE 50 MG TABLET (FP) PO SCH ×2 (11:11→22:27)
[2018-10-15] MEDS: amLODIPine BESYLATE 10 MG TABLET (FP) PO SCH (11:12)
[2018-10-15] MEDS: CEFTRIAXONE 1 GM in DEXTROSE 5%-WATER - 50 ML IVPB SCH (11:12)
[2018-10-15] MEDS: methylPREDNISolone NA SUCC 40 MG/1 ML VIAL IVPUSH SCH (11:13)
[2018-10-15] MEDS: OSELTAMIVIR PHOSPHATE 75 MG CAPSULE PO SCH ×2 (11:14→22:28)
[2018-10-15] MEDS: QUEtiapine FUMARATE 25 MG TABLET (FP) PO SCH ×2 (11:14→22:28)
[2018-10-15] MEDS: VANCOMYCIN HCL 1,250 MG in DEXTROSE 5%-WATER - 250 ML IVPB SCH ×2 (11:15→22:48)
--- NOTE | 2018-10-15 11:33 | PN ---
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, Physician History of Present Illness: CONFUSED OFFERS NO COMPLAINTS TEMPS DOWN AFEBRILE - Current Medication List Current Medications: Active Medications Acetaminophen (Ofirmev Injection -) 1,000 mg IVPB Q6H PRN PRN Reason: FEVER Last Admin: 10/14/18 11:55 Dose: 1,000 mg Amlodipine Besylate (Norvasc -) 10 mg PO DAILY [facility] Last Admin: 10/15/18 11:12 Dose: 10 mg Atorvastatin Calcium (Lipitor -) 10 mg PO [facility] Last Admin: 10/14/18 21:40 Dose: 10 mg Chlorhexidine Gluconate (Hibiclens For Decolonization -) 1 applic TP [facility] Last Admin: 10/14/18 21:39 Dose: 1 applic Enoxaparin Sodium (Lovenox -) 40 mg SQ DAILY [facility] Last Admin: 10/15/18 11:11 Dose: 40 mg Folic Acid (Folic Acid -) 1 mg PO DAILY [facility] Last Admin: 10/15/18 11:08 Dose: 1 mg Vancomycin HCl 1,250 mg/ (Dextrose) 250 mls @ 166.667 mls/hr IVPB Q12H [facility]; Protocol Last Admin: 10/15/18 11:15 Dose: 166.667 mls/hr Ceftriaxone Sodium 1 gm/ (Dextrose) 50 mls @ 100 mls/hr IVPB DAILY [facility]; Protocol Last Admin: 10/15/18 11:12 Dose: 100 mls/hr Insulin Aspart (Novolog Vial Sliding Scale -) 1 vial SQ ACHS [facility]; Protocol Last Admin: 10/15/18 06:00 Dose: 4 unit Insulin Detemir (Levemir Vial) 15 units SQ [facility] Last Admin: 10/14/18 21:42 Dose: 15 units Levetiracetam (Keppra -) 500 mg PO BID [facility] Last Admin: 10/15/18 11:10 Dose: 500 mg Methylprednisolone Sodium Succinate (Solu-Medrol -) 40 mg IVPUSH DAILY [facility] Last Admin: 10/15/18 11:13 Dose: 40 mg Metoprolol Tartrate (Lopressor -) 50 mg PO BID [facility] Last Admin: 10/15/18 11:11 Dose: 50 mg Mupirocin (Bactroban Ointment (For Decolonization) -) 1 applic NS BID [facility] Stop: 10/18/18 21:59 Last Admin: 10/14/18 21:38 Dose: 1 applic Non-Formulary Medication (Linaclotide [Linzess]) 145 mcg PO DAILY [facility] Oseltamivir Phosphate (Tamiflu -) 75 mg PO BID [facility] Stop: 10/19/18 09:59 Last Admin: 10/15/18 11:14 Dose: 75 mg Quetiapine Fumarate (Seroquel -) 12.5 mg PO DAILY [facility] Last Admin: 10/15/18 11:14 Dose: 12.5 mg Quetiapine Fumarate (Seroquel -) 25 mg PO HS [facility] Last Admin: 10/14/18 21:41 Dose: 25 mg Tamsulosin HCl (Flomax -) 0.4 mg PO DAILY@0830 [facility] Last Admin: 10/15/18 09:00 Dose: 0.4 mg - Objective Vital Signs: Vital Signs Temperature 99.1 F 10/15/18 08:00 Pulse Rate 68 10/15/18 08:00 Respiratory Rate 20 10/15/18 08:00 Blood Pressure 111/81 10/15/18 08:00 O2 Sat by Pulse Oximetry (%) 97 10/15/18 09:00 Constitutional: Yes: No Distress Eyes: Yes: Conjunctiva Clear Cardiovascular: Yes: Regular Rate and Rhythm, S1, S2 Respiratory: Yes: Diminished Gastrointestinal: Yes: Normal Bowel Sounds, Soft. No: Tenderness Labs: CBC, BMP 10/15/18 05:30 10/15/18 05:30 INR, PTT INR 1.23 (0.83-1.09) H 10/13/18 18:33 Assessment/Plan ACUTE INFLUENZA RLL PNEUMONIA LACTIC ACIDOSIS CONTINUE TAMIFLU CONTINE CEFTRIAXONE/ VANCOMYCIN
--- NOTE | 2018-10-15 11:49 | PN ---
Teaching Attending Note Name of Resident: Elizabeth Miguel ATTENDING PHYSICIAN STATEMENT I saw and evaluated the patient. I reviewed the resident's note and discussed the case with the resident. I agree with the resident's findings and plan as documented. SUBJECTIVE: Pt seen and examined in the ICU. Breathing better today. Intermittent desaturations with nasal cannula. Febrile this AM. OBJECTIVE: Vital Signs Period Temp Pulse Resp BP Sys/Louie Pulse Ox Last 24 Hr 98.4 F-101.4 F 63-85 18-26 107-141/48-81 95-97 Intake & Output 10/12/18 10/13/18 10/14/18 10/15/18 23:59 23:59 23:59 23:59 Intake Total 3600 350 Output Total 3000 600 Balance 600 -250 Weight 81.647 kg 81.647 kg 83.96 kg Gen: less tachypneic, more alert Heart: RRR Lung: scattered rhonchi, wheezes Abd: soft, nontender Ext: no edema CBC, BMP 10/15/18 05:30 10/15/18 05:30 Active Medications Acetaminophen (Ofirmev Injection -) 1,000 mg IVPB Q6H PRN PRN Reason: FEVER Last Admin: 10/14/18 11:55 Dose: 1,000 mg Amlodipine Besylate (Norvasc -) 10 mg PO DAILY [facility] Last Admin: 10/15/18 11:12 Dose: 10 mg Atorvastatin Calcium (Lipitor -) 10 mg PO HS [facility] Last Admin: 10/14/18 21:40 Dose: 10 mg Chlorhexidine Gluconate (Hibiclens For Decolonization -) 1 applic TP HS [facility] Last Admin: 10/14/18 21:39 Dose: 1 applic Enoxaparin Sodium (Lovenox -) 40 mg SQ DAILY [facility] Last Admin: 10/15/18 11:11 Dose: 40 mg Folic Acid (Folic Acid -) 1 mg PO DAILY [facility] Last Admin: 10/15/18 11:08 Dose: 1 mg Vancomycin HCl 1,250 mg/ (Dextrose) 250 mls @ 166.667 mls/hr IVPB Q12H [facility]; Protocol Last Admin: 10/15/18 11:15 Dose: 166.667 mls/hr Ceftriaxone Sodium 1 gm/ (Dextrose) 50 mls @ 100 mls/hr IVPB DAILY [facility]; Protocol Last Admin: 10/15/18 11:12 Dose: 100 mls/hr Insulin Aspart (Novolog Vial Sliding Scale -) [address] [facility]; Protocol Last Admin: 10/15/18 06:00 Dose: 4 unit Insulin Detemir (Levemir Vial) 15 units SQ [facility] Last Admin: 10/14/18 21:42 Dose: 15 units Levetiracetam (Keppra -) 500 mg PO BID [facility] Last Admin: 10/15/18 11:10 Dose: 500 mg Methylprednisolone Sodium Succinate (Solu-Medrol -) 40 mg IVPUSH DAILY [facility] Last Admin: 10/15/18 11:13 Dose: 40 mg Metoprolol Tartrate (Lopressor -) 50 mg PO BID [facility] Last Admin: 10/15/18 11:11 Dose: 50 mg Mupirocin (Bactroban Ointment (For Decolonization) -) 1 applic NS BID [facility] Stop: 10/18/18 21:59 Last Admin: 10/14/18 21:38 Dose: 1 applic Non-Formulary Medication (Linaclotide [Linzess]) 145 mcg PO DAILY [facility] Oseltamivir Phosphate (Tamiflu -) 75 mg PO BID [facility] Stop: 10/19/18 09:59 Last Admin: 10/15/18 11:14 Dose: 75 mg Quetiapine Fumarate (Seroquel -) 12.5 mg PO DAILY [facility] Last Admin: 10/15/18 11:14 Dose: 12.5 mg Quetiapine Fumarate (Seroquel -) 25 mg PO HS [facility] Last Admin: 10/14/18 21:41 Dose: 25 mg Tamsulosin HCl (Flomax -) 0.4 mg PO DAILY@0830 [facility] Last Admin: 10/15/18 09:00 Dose: 0.4 mg ASSESSMENT AND PLAN: Acute Hypoxic Respiratory Failure Pneumonia Influenza A Severe Sepsis Lactic Acidosis Acute COPD Exacerbation Altered Mental Status improving HTN - continue antibiotics - f/u cultures - tamiflu - short course of medrol - inhaled bronchodilators - O2 to keep Spo2 >90% - BiPAP as needed to assist in work of breathing - glucose control while on systemic steroids - DVT prophylaxis - can monitor on floor critical care time spent in reviewing chart, evaluating patient and formulating plan 35 min
--- NOTE | 2018-10-15 13:50 | EKG ---
Test Reason : Blood Pressure : / mmHG Vent. Rate : 112 BPM Atrial Rate : 112 BPM P-R Int : 160 ms QRS Dur : 126 ms QT Int : 344 ms P-R-T Axes : 059 -59 090 degrees QTc Int : 469 ms SINUS TACHYCARDIA LEFT AXIS DEVIATION NON-SPECIFIC INTRA-VENTRICULAR CONDUCTION BLOCK T WAVE ABNORMALITY, CONSIDER LATERAL ISCHEMIA ABNORMAL ECG NO PREVIOUS ECGS AVAILABLE Confirmed by MD Steven, Chato ([id number]) on 10/15/2018 1:50:13 PM Referred By: Confirmed By:Chato Harris MD
[2018-10-15] MEDS ORDERED: ACETAMINOPHEN 325 MG TABLET (FP) PO PRN (16:57)
[2018-10-15] MEDS: CHLORHEXIDINE GLUCONATE 4% CLEANSER FOR DECOLONIZATION TP SCH (22:19)
[2018-10-15] MEDS: INSULIN (LEVEMIR) 100 UNITS/ML UNITS SQ SCH (22:28)
[2018-10-15] MEDS: ATORVASTATIN CA 10 MG TABLET (FP) PO SCH (22:28)
[2018-10-16] MEDS: INSULIN SLIDING SCALE (NOVOLOG) 1 VIAL SQ SCH ×4 (06:42→23:08)
[2018-10-16 07:32] LABS: BASO % 0.2 % (0-2.0); EOS % 0.5 % (0-4.5); HEMOGLOBIN 14.3 GM/dL (11.7-16.9); LYMPH % 21.8 % (8-40); MCH 29.6 pg (25.7-33.7); MCHC 34.1 g/dl (32.0-35.9); MEAN CELL VOLUME 86.8 fl (80-96); MEAN PLT VOLUME 10.3 fl (7.5-11.1); MONO % 7.3 % (3.8-10.2); NEUT % 70.2 % (42.8-82.8); PLATELET COUNT 142 K/MM3 (134-434); RBC 4.84 M/mm3 (4.00-5.60); RDW 15.3 % (11.9-15.9); WHITE BLOOD COUNT 5.6 K/mm3 (4.0-10.0)
[2018-10-16 07:56] LABS: ALBUMIN 2.7 g/dl (3.4-5.0); ALK PHOS 74 U/L (45-117); ANION GAP 8 MMOL/L (8-16); BILIRUBIN,TOTAL 0.4 mg/dL (0.2-1); BLOOD UREA NITROGEN 12 mg/dL (7-18); CALCIUM 8.4 mg/dL (8.5-10.1); CHLORIDE 109 mmol/L (98-107); CO2 26 mmol/L (21-32); CREATININE 0.4 mg/dL (0.55-1.3); GLUCOSE,RANDOM 106 mg/dL (74-106); MAGNESIUM 2.3 mg/dL (1.8-2.4); PHOSPHOROUS 3.5 mg/dL (2.5-4.9); POTASSIUM 3.9 mmol/L (3.5-5.1); SGOT/AST 16 U/L (15-37); SGPT/ALT 22 U/L (13-61); SODIUM 143 mmol/L (136-145); TOT PROT 5.6 g/dl (6.4-8.2)
[2018-10-16] MEDS: TAMSULOSIN HCL 0.4 MG CAP PO SCH (08:38)
[2018-10-16] MEDS ORDERED: DEXTROSE 5%-WATER - 50 ML IVPB ONE (09:34)
[2018-10-16] MEDS ORDERED: cefTRIAXone SODIUM 1 GM VIAL ONE (09:34)
[2018-10-16] MEDS: QUEtiapine FUMARATE 25 MG TABLET (FP) PO SCH ×2 (09:39→22:49)
[2018-10-16] MEDS: METOPROLOL TARTRATE 50 MG TABLET (FP) PO SCH ×3 (09:39→22:49)
[2018-10-16] MEDS: amLODIPine BESYLATE 10 MG TABLET (FP) PO SCH (09:39)
[2018-10-16] MEDS: levETIRAcetam 500 MG TABLET (FP) PO SCH ×2 (09:40→22:52)
[2018-10-16] MEDS: OSELTAMIVIR PHOSPHATE 75 MG CAPSULE PO SCH ×2 (09:40→22:48)
[2018-10-16] MEDS: FOLIC ACID 1 MG TABLET (FP) PO SCH (09:40)
[2018-10-16] MEDS: methylPREDNISolone NA SUCC 40 MG/1 ML VIAL IVPUSH SCH (09:41)
[2018-10-16] MEDS: ENOXAPARIN NA (PORCINE) 40 MG/0.4 ML DISP.SYRIN SQ SCH (09:41)
[2018-10-16] MEDS: CEFTRIAXONE 1 GM in DEXTROSE 5%-WATER - 50 ML IVPB SCH (09:41)
[2018-10-16] MEDS ORDERED: PATIENT'S OWN MEDICATION (NON-FORMULARY) (Linaclotide [Linzess] 145 MCG) PO SCH (10:00)
[2018-10-16] MEDS ORDERED: MUPIROCIN 2% TOPICAL OINTMENT FOR DECOLONIZATION NS SCH (10:00)
[2018-10-16] MEDS ORDERED: PT OWN MED DRAWER 7, Y5N ONE (10:08)
[2018-10-16] MEDS: VANCOMYCIN HCL 1,250 MG in DEXTROSE 5%-WATER - 250 ML IVPB SCH ×3 (10:16→22:50)
--- NOTE | 2018-10-16 10:41 | PN ---
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, Physician Chief Complaint: Acute Hypoxic Respiratory Failure Pneumonia Influenza A Severe Sepsis Lactic Acidosis Acute COPD Exacerbation Altered Mental Status improving HTN History of Present Illness: NAD confused Transferred to the floor from ICU On IV abx for RLL pneumonia Also on Tamiflu for Influenza A-day 3 Seen by ID - Current Medication List Current Medications: Active Medications Acetaminophen (Tylenol -) 650 mg PO Q6H PRN PRN Reason: FEVER Amlodipine Besylate (Norvasc -) 10 mg PO DAILY [facility] Last Admin: 10/16/18 09:39 Dose: 10 mg Atorvastatin Calcium (Lipitor -) 10 mg PO HS [facility] Enoxaparin Sodium (Lovenox -) 40 mg SQ DAILY [facility] Last Admin: 10/16/18 09:41 Dose: 40 mg Folic Acid (Folic Acid -) 1 mg PO DAILY [facility] Last Admin: 10/16/18 09:40 Dose: 1 mg Ceftriaxone Sodium 1 gm/ (Dextrose) 50 mls @ 100 mls/hr IVPB DAILY [facility]; Protocol Last Admin: 10/16/18 09:41 Dose: 100 mls/hr Vancomycin HCl 1,250 mg/ (Dextrose) 250 mls @ 166.667 mls/hr IVPB Q12H [facility]; Protocol Last Admin: 10/16/18 10:16 Dose: 166.667 mls/hr Insulin Aspart (Novolog Vial Sliding Scale -) 1 vial SQ ACHS [facility]; Protocol Insulin Detemir (Levemir Vial) 15 units SQ HS [facility] Levetiracetam (Keppra -) 500 mg PO BID [facility] Last Admin: 10/16/18 09:40 Dose: 500 mg Methylprednisolone Sodium Succinate (Solu-Medrol -) 40 mg IVPUSH DAILY [facility] Last Admin: 10/16/18 09:41 Dose: 40 mg Metoprolol Tartrate (Lopressor -) 50 mg PO BID [facility] Last Admin: 10/16/18 09:39 Dose: 50 mg Non-Formulary Medication (Linaclotide [Linzess]) 145 mcg PO DAILY [facility] Oseltamivir Phosphate (Tamiflu -) 75 mg PO BID [facility] Stop: 10/19/18 09:59 Last Admin: 10/16/18 09:40 Dose: 75 mg Quetiapine Fumarate (Seroquel -) 12.5 mg PO DAILY [facility] Last Admin: 10/16/18 09:39 Dose: 12.5 mg Quetiapine Fumarate (Seroquel -) 25 mg PO HS [facility] Tamsulosin HCl (Flomax -) 0.4 mg PO DAILY@0830 [facility] Last Admin: 10/16/18 08:38 Dose: 0.4 mg - Objective Vital Signs: Vital Signs Temperature 97.4 F L 10/16/18 06:00 Pulse Rate 58 L 10/16/18 06:00 Respiratory Rate 20 10/16/18 06:00 Blood Pressure 145/70 10/16/18 06:00 O2 Sat by Pulse Oximetry (%) 97 10/15/18 21:00 Constitutional: Yes: Well Nourished, No Distress, Calm Cardiovascular: Yes: Regular Rate and Rhythm Respiratory: Yes: On Nasal O2, Rales (RLL) Gastrointestinal: Yes: Normal Bowel Sounds, Soft Genitourinary: Yes: Incontinence Musculoskeletal: Yes: Muscle Weakness Edema: No Peripheral Pulses WNL: Yes Neurological: Yes: Alert, Confusion, Pre-Existing Deficit Psychiatric: Yes: Alert Labs: CBC, BMP 10/16/18 06:00 10/16/18 06:00 INR, PTT INR 1.23 (0.83-1.09) H 10/13/18 18:33 Problem List - Problems (1) Diabetes Assessment/Plan: -BGM AC HS -Diabetic puree diet -Insulin: Novolog+ Levemir -A1c at 9.5 -Endocrine consult Code(s): E11.9 - TYPE 2 DIABETES MELLITUS WITHOUT COMPLICATIONS Qualifiers: Diabetes mellitus type: type 2 (2) Influenza A Assessment/Plan: -Complete 5 days of tamiflu -ID on board -Afebrile -maintain standard precautions Code(s): J10.1 - FLU DUE TO OTH IDENT INFLUENZA VIRUS W OTH RESP MANIFEST (3) Pneumonia Assessment/Plan: Acute Respiratory failure 2/2 RLL PNA Hx of COPD -Bipap PRN -Supplemental O2 to maintain SpO2 >90% -Duoneb PRN -Change medrol to prednisone 40 mg po dialy Code(s): J18.9 - PNEUMONIA, UNSPECIFIED ORGANISM (4) Respiratory failure Code(s): J96.90 - RESPIRATORY FAILURE, UNSP, UNSP W HYPOXIA OR HYPERCAPNIA (5) Sepsis due to pneumonia Assessment/Plan: -Likely due to RLL PNA (Health care associated), Influenza A Positive -qSOFA 2/3 (RR, AMS) on admission -Afebrile overnight -Blood, urine, sputum cx, MRSA Screen: Microbiology 10/14/18 14:45 Nares - Mrsa Screen - Right MRSA Screen - Final NO MRSA ISOLATED 10/14/18 14:45 Nares - Mrsa Screen - Left MRSA Screen - Final NO MRSA ISOLATED 10/13/18 18:33 Blood - Peripheral Venous Blood Culture - Preliminary NO GROWTH OBTAINED AFTER 48 HOURS, INCUBATION TO CONTINUE FOR 3 DAYS. 10/13/18 18:15 Blood - Peripheral Venous Blood Culture - Preliminary NO GROWTH OBTAINED AFTER 48 HOURS, INCUBATION TO CONTINUE FOR 3 DAYS. 10/13/18 18:33 Urine - Urine [place]arro Urine Culture - Final NO GROWTH OBTAINED 10/14/18 11:00 Urine For Antigen Detection Legionella Antigen - Final 10/14/18 11:00 Urine For Antigen Detection Streptococcus pneumoniae Antigen (M - Final -Urine Ag negative -Encourage PO fluids -Continue Vanco 1250mg Q12H, Ceftriaxone 1gm Daily, Oseltamavir 75mg BID ( Started on 10/14) -Acetaminophen 650 mg po Q4H PRN -ID on board Code(s): J18.9 - PNEUMONIA, UNSPECIFIED ORGANISM; A41.9 - SEPSIS, UNSPECIFIED ORGANISM (6) HTN (hypertension) Assessment/Plan: -Continue home dose Amlodipine, Metroprolol, Atorvastatin Code(s): I10 - ESSENTIAL (PRIMARY) HYPERTENSION Assessment/Plan see problem list Physical therapy
--- NOTE | 2018-10-16 11:04 | PN ---
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, Physician History of Present Illness: AWAKE, CONFUSED OFFERS NO COMPLAINTS NO ACUTE DISTRESS TEMPS, WBC DOWN AFEBRILE - Current Medication List Current Medications: Active Medications Acetaminophen (Tylenol -) 650 mg PO Q6H PRN PRN Reason: FEVER Amlodipine Besylate (Norvasc -) 10 mg PO DAILY [facility] Last Admin: 10/16/18 09:39 Dose: 10 mg Atorvastatin Calcium (Lipitor -) 10 mg PO HS [facility] Enoxaparin Sodium (Lovenox -) 40 mg SQ DAILY [facility] Last Admin: 10/16/18 09:41 Dose: 40 mg Folic Acid (Folic Acid -) 1 mg PO DAILY [facility] Last Admin: 10/16/18 09:40 Dose: 1 mg Ceftriaxone Sodium 1 gm/ (Dextrose) 50 mls @ 100 mls/hr IVPB DAILY [facility]; Protocol Last Admin: 10/16/18 09:41 Dose: 100 mls/hr Vancomycin HCl 1,250 mg/ (Dextrose) 250 mls @ 166.667 mls/hr IVPB Q12H [facility]; Protocol Last Admin: 10/16/18 10:16 Dose: 166.667 mls/hr Insulin Aspart (Novolog Vial Sliding Scale -) 1 vial SQ ACHS [facility]; Protocol Insulin Detemir (Levemir Vial) 15 units SQ HS [facility] Levetiracetam (Keppra -) 500 mg PO BID [facility] Last Admin: 10/16/18 09:40 Dose: 500 mg Metoprolol Tartrate (Lopressor -) 50 mg PO BID [facility] Last Admin: 10/16/18 09:39 Dose: 50 mg Oseltamivir Phosphate (Tamiflu -) 75 mg PO BID [facility] Stop: 10/19/18 09:59 Last Admin: 10/16/18 09:40 Dose: 75 mg Prednisone (Deltasone -) 40 mg PO DAILY [facility] Quetiapine Fumarate (Seroquel -) 12.5 mg PO DAILY [facility] Last Admin: 10/16/18 09:39 Dose: 12.5 mg Quetiapine Fumarate (Seroquel -) 25 mg PO HS [facility] Tamsulosin HCl (Flomax -) 0.4 mg PO DAILY@0830 [facility] Last Admin: 10/16/18 08:38 Dose: 0.4 mg - Objective Vital Signs: Vital Signs Temperature 97.4 F L 10/16/18 06:00 Pulse Rate 58 L 10/16/18 06:00 Respiratory Rate 20 10/16/18 06:00 Blood Pressure 145/70 10/16/18 06:00 O2 Sat by Pulse Oximetry (%) 97 10/15/18 21:00 Constitutional: Yes: No Distress Eyes: Yes: Conjunctiva Clear Cardiovascular: Yes: Regular Rate and Rhythm, S1, S2 Respiratory: Yes: Diminished, Wheezes Gastrointestinal: Yes: Normal Bowel Sounds, Soft. No: Tenderness Edema: No Labs: CBC, BMP 10/16/18 06:00 10/16/18 06:00 INR, PTT INR 1.23 (0.83-1.09) H 10/13/18 18:33 Assessment/Plan ACUTE INFLUENZA RLL PNEUMONIA FEVER/ LEUKOCYTOSIS- IMPROVED LACTIC ACIDOSIS CONTINUE TAMIFLU CONTINE CEFTRIAXONE/ VANCOMYCIN
--- NOTE | 2018-10-16 12:19 | PN ---
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1 F 10/15/18 10/15/18 10/15/18 15:52 21:00 22:00 Breakfast 100% Diet Tolerated Well Lunch 75% Temperature 97.9 F 97.9 F 10/16/18 10/16/18 06:00 10:15 Breakfast 100% Diet Tolerated Well Lunch Temperature 97.4 F L Laboratory Tests 10/13/18 10/14/18 10/16/18 18:33 05:30 06:00 WBC 14.0 H 13.2 H 5.6 ACUTE INFLUENZA RLL PNEUMONIA Tolerating pureed diet/thin liquid.
--- NOTE | 2018-10-16 14:10 | PN ---
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, Physician History of Present Illness: PULMONARY AWAKE,CONFUSED ,-RESP DISTRESS - Current Medication List Current Medications: Active Medications Acetaminophen (Tylenol -) 650 mg PO Q6H PRN PRN Reason: FEVER Amlodipine Besylate (Norvasc -) 10 mg PO DAILY [facility] Last Admin: 10/16/18 09:39 Dose: 10 mg Atorvastatin Calcium (Lipitor -) 10 mg PO HS [facility] Enoxaparin Sodium (Lovenox -) 40 mg SQ DAILY [facility] Last Admin: 10/16/18 09:41 Dose: 40 mg Folic Acid (Folic Acid -) 1 mg PO DAILY [facility] Last Admin: 10/16/18 09:40 Dose: 1 mg Ceftriaxone Sodium 1 gm/ (Dextrose) 50 mls @ 100 mls/hr IVPB DAILY [facility]; Protocol Last Admin: 10/16/18 09:41 Dose: 100 mls/hr Vancomycin HCl 1,250 mg/ (Dextrose) 250 mls @ 166.667 mls/hr IVPB Q12H [facility]; Protocol Last Admin: 10/16/18 10:16 Dose: 166.667 mls/hr Insulin Aspart (Novolog Vial Sliding Scale -) 1 vial SQ [facility]; Protocol Last Admin: 10/16/18 11:56 Dose: 6 unit Insulin Detemir (Levemir Vial) [address] [facility] Levetiracetam (Keppra -) 500 mg PO BID [facility] Last Admin: 10/16/18 09:40 Dose: 500 mg Metoprolol Tartrate (Lopressor -) 50 mg PO BID [facility] Last Admin: 10/16/18 09:39 Dose: 50 mg Oseltamivir Phosphate (Tamiflu -) 75 mg PO BID [facility] Stop: 10/19/18 09:59 Last Admin: 10/16/18 09:40 Dose: 75 mg Prednisone (Deltasone -) 40 mg PO DAILY [facility] Quetiapine Fumarate (Seroquel -) 12.5 mg PO DAILY [facility] Last Admin: 10/16/18 09:39 Dose: 12.5 mg Quetiapine Fumarate (Seroquel -) 25 mg PO HS [facility] Tamsulosin HCl (Flomax -) 0.4 mg PO DAILY@0830 [facility] Last Admin: 10/16/18 08:38 Dose: 0.4 mg - Objective Vital Signs: Vital Signs Temperature 97.4 F L 10/16/18 06:00 Pulse Rate 58 L 10/16/18 06:00 Respiratory Rate 20 10/16/18 06:00 Blood Pressure 145/70 10/16/18 06:00 O2 Sat by Pulse Oximetry (%) 97 10/15/18 21:00 Constitutional: Yes: Well Nourished, Calm Eyes: Yes: WNL HENT: Yes: WNL Neck: Yes: WNL Cardiovascular: Yes: Regular Rate and Rhythm, S1, S2 Respiratory: Yes: Diminished Gastrointestinal: Yes: Normal Bowel Sounds, Soft Extremities: Yes: WNL Edema: No Labs: CBC, BMP 10/16/18 06:00 10/16/18 06:00 INR, PTT INR 1.23 (0.83-1.09) H 10/13/18 18:33 Problem List - Problems (1) BPH (benign prostatic hyperplasia) Code(s): N40.0 - BENIGN PROSTATIC HYPERPLASIA WITHOUT LOWER URINRY TRACT SYMP (2) Influenza A Code(s): J10.1 - FLU DUE TO OTH IDENT INFLUENZA VIRUS W OTH RESP MANIFEST (3) Pneumonia Code(s): J18.9 - PNEUMONIA, UNSPECIFIED ORGANISM (4) Respiratory failure Code(s): J96.90 - RESPIRATORY FAILURE, UNSP, UNSP W HYPOXIA OR HYPERCAPNIA (5) Acute hypoxemic respiratory failure Code(s): J96.01 - ACUTE RESPIRATORY FAILURE WITH HYPOXIA (6) Diabetes Code(s): E11.9 - TYPE 2 DIABETES MELLITUS WITHOUT COMPLICATIONS Qualifiers: Diabetes mellitus type: type 2 (7) HTN (hypertension) Code(s): I10 - ESSENTIAL (PRIMARY) HYPERTENSION (8) Sepsis due to pneumonia Code(s): J18.9 - PNEUMONIA, UNSPECIFIED ORGANISM; A41.9 - SEPSIS, UNSPECIFIED ORGANISM (9) COPD (chronic obstructive pulmonary disease) Code(s): J44.9 - CHRONIC OBSTRUCTIVE PULMONARY DISEASE, UNSPECIFIED (10) COPD (chronic obstructive pulmonary disease) Code(s): J44.9 - CHRONIC OBSTRUCTIVE PULMONARY DISEASE, UNSPECIFIED Assessment/Plan ASSESSMENT AND PLAN: Acute Hypoxic Respiratory Failure Pneumonia Influenza A Severe Sepsis Lactic Acidosis Acute COPD Exacerbation Altered Mental Status improving HTN - antibiotics - tamiflu - prednisone - inhaled bronchodilators - O2 to keep Spo2 >90% - BiPAP as needed to assist in work of breathing - glucose control while on systemic steroids - DVT prophylaxis DR GRAY
[2018-10-16] MEDS ORDERED: CHLORHEXIDINE GLUCONATE 4% CLEANSER FOR DECOLONIZATION TP SCH (22:00)
[2018-10-16] MEDS ORDERED: INSULIN (LEVEMIR) 100 UNITS/ML UNITS SQ SCH (22:00)
[2018-10-16] MEDS: ATORVASTATIN CA 10 MG TABLET (FP) PO SCH (22:48)
--- NOTE | 2018-10-16 23:38 | CONSULT ---
Consult Consult Specialty:: endocrine Referred by:: abram biggs Reason for Consultation:: DM TYPE 2 - History of Present Illness Chief Complaint: CONFUSED LETHARGIC History of Present Illness: 78 yo M with significant PMHx of DM TYPE 2, HTN, HLD and benign neoplasm of spinal meninges presents from [facility] with respiratory failure.. From chart patient was noted to be confused and with respiratory distress EMS was called and found patient's O2 sat was in 70's. He was placed on CPAP and transported to [facility].he was found to have fever and pneumonia,his blood sugars have been elevated.he has required iv antibiotics and insulin coverage. - Past Medical History CHARGE AUTHORIZER: Yes: Seizure Cardio/Vascular: Yes: HTN, Hyperlipdemia Renal/: Yes: BPH Psych: Yes: Bipolar Endocrine: Yes: Diabetes Mellitus - Alcohol/Substance Use Hx Alcohol Use: No - Smoking History Smoking history: Unknown if ever smoked Have you smoked in the past 12 months: No - Social History Usual Living Arrangement: Fdc ADL: Support Services History of Recent Travel: No Home Medications - Allergies Allergies/Adverse Reactions: Allergies Allergy/AdvReac Type Severity Reaction Status Date / Time No Known Allergies Allergy Verified 10/13/18 18:30 - Home Medications Home Medications: Ambulatory Orders Amlodipine Besylate 10 mg PO DAILY 10/13/18 Folic Acid 1 mg PO DAILY 10/13/18 Insulin Glargine,Hum.rec.anlog [Lantus] 15 unit SQ HS 10/13/18 Linaclotide [Linzess] 145 mcg PO DAILY 10/13/18 Metoprolol Tartrate 50 mg PO BID 10/13/18 Quetiapine Fumarate [Seroquel -] 25 mg PO HS 10/13/18 Simvastatin 20 mg PO HS 10/13/18 Tamsulosin HCl [Flomax] 0.4 mg PO DAILY 10/13/18 Timolol 0.5% [Timoptic] 1 drop OU DAILY 10/13/18 levETIRAcetam [Keppra -] 1,000 mg PO BID 10/13/18 Brimonidine/Dorzolamide/Pf [Brimonidine 0.15%-Dorzolam 2%] 1 drop OP TID Quetiapine Fumarate [Seroquel -] 12.5 mg PO DAILY 10/14/18 Review of Systems Unable to obtain ROS, reason: confused and lethargic - Review of Systems Constitutional: reports: Lethargy, Loss of Appetite, Malaise, Weakness Physical Exam Vital Signs: Vital Signs Temperature 98.1 F 10/16/18 23:01 Pulse Rate 66 10/16/18 23:01 Respiratory Rate 20 10/16/18 23:01 Blood Pressure 139/76 10/16/18 23:01 O2 Sat by Pulse Oximetry (%) 97 10/16/18 09:00 Constitutional: Yes: Calm Eyes: Yes: EOM Intact HENT: Yes: Normocephalic Neck: Yes: Trachea Midline Cardiovascular: Yes: Tachycardia Respiratory: Yes: Rhonchi, Tachypnea, Wheezes Gastrointestinal: Yes: Abdomen, Obese ...Rectal Exam: Yes: Deferred Renal/: Yes: WNL Musculoskeletal: Yes: WNL Extremities: Yes: WNL Edema: No Neurological: Yes: Alert, Confusion Labs: CBC, BMP 10/16/18 06:00 10/16/18 06:00 Problem List - Problems (1) Acute hypoxemic respiratory failure Code(s): J96.01 - ACUTE RESPIRATORY FAILURE WITH HYPOXIA (2) BPH (benign prostatic hyperplasia) Code(s): N40.0 - BENIGN PROSTATIC HYPERPLASIA WITHOUT LOWER URINRY TRACT SYMP (3) COPD (chronic obstructive pulmonary disease) Code(s): J44.9 - CHRONIC OBSTRUCTIVE PULMONARY DISEASE, UNSPECIFIED (4) Diabetes Code(s): E11.9 - TYPE 2 DIABETES MELLITUS WITHOUT COMPLICATIONS Qualifiers: Diabetes mellitus type: type 2 (5) Influenza A Code(s): J10.1 - FLU DUE TO OTH IDENT INFLUENZA VIRUS W OTH RESP MANIFEST (6) Pneumonia Code(s): J18.9 - PNEUMONIA, UNSPECIFIED ORGANISM Assessment/Plan Current Active Problems Acute hypoxemic respiratory failure (Acute) BPH (benign prostatic hyperplasia) (Acute) COPD (chronic obstructive pulmonary disease) (Acute) COPD (chronic obstructive pulmonary disease) (Acute) Diabetes (Acute) HTN (hypertension) (Acute) Influenza A (Acute) Pneumonia (Acute) Respiratory failure (Acute) Sepsis due to pneumonia (Acute) Abnormal Lab Results 10/16/18 06:00 Chloride 109 H Creatinine 0.4 L Calcium 8.4 L Total Protein 5.6 L Albumin 2.7 L Laboratory Results - last 24 hr 10/16/18 10/16/18 10/16/18 05:42 06:00 06:00 WBC 5.6 RBC 4.84 Hgb 14.3 Hct 42.0 MCV 86.8 MCH 29.6 MCHC 34.1 RDW 15.3 Plt Count 142 MPV 10.3 Absolute Neuts (auto) 3.9 Neutrophils % 70.2 D Lymphocytes % 21.8 D Monocytes % 7.3 D Eosinophils % 0.5 D Basophils % 0.2 Nucleated RBC % 0 Sodium 143 Potassium 3.9 Chloride 109 H Carbon Dioxide 26 Anion Gap 8 BUN 12 Creatinine 0.4 L Creat Clearance w eGFR > 60 POC Glucometer 111 Random Glucose 106 Calcium 8.4 L Phosphorus 3.5 Magnesium 2.3 Total Bilirubin 0.4 AST 16 ALT 22 Alkaline Phosphatase 74 Total Protein 5.6 L Albumin 2.7 L 10/16/18 10/16/18 11:43 23:04 WBC RBC Hgb Hct MCV MCH MCHC RDW Plt Count MPV Absolute Neuts (auto) Neutrophils % Lymphocytes % Monocytes % Eosinophils % Basophils % Nucleated RBC % Sodium Potassium Chloride Carbon Dioxide Anion Gap BUN Creatinine Creat Clearance w eGFR POC Glucometer 277 268 Random Glucose Calcium Phosphorus Magnesium Total Bilirubin AST ALT Alkaline Phosphatase Total Protein Albumin Laboratory Tests 10/16/18 10/16/18 10/16/18 05:42 11:43 23:04 POC Glucometer 111 277 268 plan: bgm qid novolog insulin doses levemir 18bid doses iv abx
[2018-10-17] MEDS: INSULIN (LEVEMIR) 100 UNITS/ML UNITS SQ SCH ×2 (07:09→22:21)
[2018-10-17] MEDS: INSULIN SLIDING SCALE (NOVOLOG) 1 VIAL SQ SCH ×4 (07:09→22:42)
[2018-10-17] MEDS ORDERED: PT OWN MED DRAWER 7, Y5N ONE (07:15)
[2018-10-17] MEDS: TAMSULOSIN HCL 0.4 MG CAP PO SCH (08:20)
--- NOTE | 2018-10-17 08:35 | PN ---
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 (short form) - Note 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: NAD on NC O2. Confused. No acute events overnight. Remains afebrile. Intake & Output 10/14/18 10/15/18 10/16/18 10/17/18 23:59 23:59 23:59 23:59 Intake Total 3600 650 Output Total 3000 1000 Balance 600 -350 Weight 180 lb 185 lb Last Vital Signs Temp Pulse Resp BP Pulse Ox 98 F 66 20 143/66 97 10/17/18 05:00 10/17/18 05:00 10/17/18 05:00 10/17/18 05:00 10/16/18 09:00 Active Medications Acetaminophen (Tylenol -) 650 mg PO Q6H PRN PRN Reason: FEVER Amlodipine Besylate (Norvasc -) 10 mg PO DAILY [facility] Last Admin: 10/16/18 09:39 Dose: 10 mg Atorvastatin Calcium (Lipitor -) 10 mg PO HS [facility] Last Admin: 10/16/18 22:48 Dose: 10 mg Enoxaparin Sodium (Lovenox -) 40 mg SQ DAILY [facility] Last Admin: 10/16/18 09:41 Dose: 40 mg Folic Acid (Folic Acid -) 1 mg PO DAILY [facility] Last Admin: 10/16/18 09:40 Dose: 1 mg Ceftriaxone Sodium 1 gm/ (Dextrose) 50 mls @ 100 mls/hr IVPB DAILY [facility]; Protocol Last Admin: 10/16/18 09:41 Dose: 100 mls/hr Vancomycin HCl 1,250 mg/ (Dextrose) 250 mls @ 166.667 mls/hr IVPB Q12H [facility]; Protocol Last Admin: 10/16/18 22:50 Dose: 166.667 mls/hr Insulin Aspart (Novolog Vial Sliding Scale -) 1 vial SQ ACHS [facility]; Protocol Last Admin: 10/17/18 07:09 Dose: Not Given Insulin Detemir (Levemir Vial) 18 units SQ BID@0700,2200 [facility] Last Admin: 10/17/18 07:09 Dose: 18 units Levetiracetam (Keppra -) 500 mg PO BID [facility] Last Admin: 10/16/18 22:52 Dose: 500 mg Metoprolol Tartrate (Lopressor -) 50 mg PO BID [facility] Last Admin: 10/16/18 22:49 Dose: 50 mg Oseltamivir Phosphate (Tamiflu -) 75 mg PO BID [facility] Stop: 10/19/18 09:59 Last Admin: 10/16/18 22:48 Dose: 75 mg Prednisone (Deltasone -) 40 mg PO DAILY [facility] Quetiapine Fumarate (Seroquel -) 12.5 mg PO DAILY [facility] Last Admin: 10/16/18 09:39 Dose: 12.5 mg Quetiapine Fumarate (Seroquel -) 25 mg PO HS [facility] Last Admin: 10/16/18 22:49 Dose: 25 mg Tamsulosin HCl (Flomax -) 0.4 mg PO DAILY@0830 [facility] Last Admin: 10/17/18 08:20 Dose: 0.4 mg Constitutional: Yes: NAD, confused Eyes: Yes: WNL HENT: Yes: WNL Neck: Yes: WNL Cardiovascular: Yes: Regular Rate and Rhythm, S1, S2 Respiratory: Yes: scattered rhonchi Right > Left Gastrointestinal: Yes: Normal Bowel Sounds, Soft Extremities: Yes: WNL Edema: No Labs: Laboratory Results - last 24 hr 10/16/18 10/16/18 10/17/18 11:43 23:04 07:05 POC Glucometer 277 268 121 Problem List - Problems (1) BPH (benign prostatic hyperplasia) Code(s): N40.0 - BENIGN PROSTATIC HYPERPLASIA WITHOUT LOWER URINRY TRACT SYMP (2) Influenza A Code(s): J10.1 - FLU DUE TO OTH IDENT INFLUENZA VIRUS W OTH RESP MANIFEST (3) Pneumonia Code(s): J18.9 - PNEUMONIA, UNSPECIFIED ORGANISM (4) Respiratory failure Code(s): J96.90 - RESPIRATORY FAILURE, UNSP, UNSP W HYPOXIA OR HYPERCAPNIA (5) Acute hypoxemic respiratory failure Code(s): J96.01 - ACUTE RESPIRATORY FAILURE WITH HYPOXIA (6) Diabetes Code(s): E11.9 - TYPE 2 DIABETES MELLITUS WITHOUT COMPLICATIONS Qualifiers: Diabetes mellitus type: type 2 (7) HTN (hypertension) Code(s): I10 - ESSENTIAL (PRIMARY) HYPERTENSION (8) Sepsis due to pneumonia Code(s): J18.9 - PNEUMONIA, UNSPECIFIED ORGANISM; A41.9 - SEPSIS, UNSPECIFIED ORGANISM (9) COPD (chronic obstructive pulmonary disease) Code(s): J44.9 - CHRONIC OBSTRUCTIVE PULMONARY DISEASE, UNSPECIFIED (10) COPD (chronic obstructive pulmonary disease) Code(s): J44.9 - CHRONIC OBSTRUCTIVE PULMONARY DISEASE, UNSPECIFIED Assessment/Plan Acute Hypoxic Respiratory Failure Pneumonia Influenza A Severe Sepsis Lactic Acidosis Acute COPD Exacerbation Altered Mental Status improving HTN - antibiotics per ID - tamiflu - prednisone - inhaled bronchodilators - O2 to maintain saturation - glucose control while on systemic steroids - DVT prophylaxis Dr Cardoso
[2018-10-17] MEDS ORDERED: DEXTROSE 5%-WATER - 50 ML IVPB ONE (09:12)
[2018-10-17] MEDS ORDERED: cefTRIAXone SODIUM 1 GM VIAL ONE (09:12)
[2018-10-17] MEDS: CEFTRIAXONE 1 GM in DEXTROSE 5%-WATER - 50 ML IVPB SCH (09:13)
[2018-10-17] MEDS: predniSONE 20 MG TABLET (UD) PO SCH (09:13)
[2018-10-17] MEDS: levETIRAcetam 500 MG TABLET (FP) PO SCH ×2 (09:13→22:20)
[2018-10-17] MEDS: amLODIPine BESYLATE 10 MG TABLET (FP) PO SCH (09:13)
[2018-10-17] MEDS: QUEtiapine FUMARATE 25 MG TABLET (FP) PO SCH ×2 (09:14→22:20)
[2018-10-17] MEDS: ENOXAPARIN NA (PORCINE) 40 MG/0.4 ML DISP.SYRIN SQ SCH (09:15)
[2018-10-17] MEDS: OSELTAMIVIR PHOSPHATE 75 MG CAPSULE PO SCH ×2 (09:15→22:20)
[2018-10-17] MEDS: METOPROLOL TARTRATE 50 MG TABLET (FP) PO SCH ×2 (09:15→22:20)
[2018-10-17] MEDS: FOLIC ACID 1 MG TABLET (FP) PO SCH (09:15)
--- NOTE | 2018-10-17 10:10 | PN ---
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, Physician Chief Complaint: Influenza A Sepsis Lactic Acidosis Pneumonia History of Present Illness: Previous notes and events reviewed awake and alert, confused NAD continue to complain of SOB and cough afebrile - Current Medication List Current Medications: Active Medications Acetaminophen (Tylenol -) 650 mg PO Q6H PRN PRN Reason: FEVER Amlodipine Besylate (Norvasc -) 10 mg PO DAILY [facility] Last Admin: 10/17/18 09:13 Dose: 10 mg Atorvastatin Calcium (Lipitor -) 10 mg PO HS [facility] Last Admin: 10/16/18 22:48 Dose: 10 mg Enoxaparin Sodium (Lovenox -) 40 mg SQ DAILY [facility] Last Admin: 10/17/18 09:15 Dose: 40 mg Folic Acid (Folic Acid -) 1 mg PO DAILY [facility] Last Admin: 10/17/18 09:15 Dose: 1 mg Ceftriaxone Sodium 1 gm/ (Dextrose) 50 mls @ 100 mls/hr IVPB DAILY [facility]; Protocol Last Admin: 10/17/18 09:13 Dose: 100 mls/hr Vancomycin HCl 1,250 mg/ (Dextrose) 250 mls @ 166.667 mls/hr IVPB Q12H [facility]; Protocol Last Admin: 10/16/18 22:50 Dose: 166.667 mls/hr Insulin Aspart (Novolog Vial Sliding Scale -) 1 vial SQ ACHS [facility]; Protocol Last Admin: 10/17/18 07:09 Dose: Not Given Insulin Detemir (Levemir Vial) 18 units SQ BID@0700,2200 [facility] Last Admin: 10/17/18 07:09 Dose: 18 units Levetiracetam (Keppra -) 500 mg PO BID [facility] Last Admin: 10/17/18 09:13 Dose: 500 mg Metoprolol Tartrate (Lopressor -) 50 mg PO BID [facility] Last Admin: 10/17/18 09:15 Dose: 50 mg Oseltamivir Phosphate (Tamiflu -) 75 mg PO BID [facility] Stop: 10/19/18 09:59 Last Admin: 10/17/18 09:15 Dose: 75 mg Prednisone (Deltasone -) 40 mg PO DAILY [facility] Last Admin: 10/17/18 09:13 Dose: 40 mg Quetiapine Fumarate (Seroquel -) 12.5 mg PO DAILY [facility] Last Admin: 10/17/18 09:14 Dose: 12.5 mg Quetiapine Fumarate (Seroquel -) 25 mg PO HS [facility] Last Admin: 10/16/18 22:49 Dose: 25 mg Tamsulosin HCl (Flomax -) 0.4 mg PO DAILY@0830 [facility] Last Admin: 10/17/18 08:20 Dose: 0.4 mg - Objective Vital Signs: Vital Signs Temperature 98 F 10/17/18 05:00 Pulse Rate 66 10/17/18 05:00 Respiratory Rate 20 10/17/18 05:00 Blood Pressure 143/66 10/17/18 05:00 O2 Sat by Pulse Oximetry (%) 97 10/16/18 09:00 Constitutional: Yes: Well Nourished, No Distress, Calm Eyes: Yes: Conjunctiva Clear HENT: Yes: Atraumatic Cardiovascular: Yes: Regular Rate and Rhythm Respiratory: Yes: On Nasal O2, Rales Gastrointestinal: Yes: Normal Bowel Sounds, Soft, Abdomen, Obese, Other (non tender) Genitourinary: Yes: Incontinence Musculoskeletal: Yes: Muscle Weakness Extremities: Yes: WNL Edema: No Neurological: Yes: Alert, Pre-Existing Deficit Psychiatric: Yes: Alert Labs: CBC, BMP 10/16/18 06:00 10/16/18 06:00 INR, PTT INR 1.23 (0.83-1.09) H 10/13/18 18:33 Microbiology 10/13/18 18:33 Blood - Peripheral Venous Blood Culture - Preliminary NO GROWTH OBTAINED AFTER 72 HOURS, INCUBATION TO CONTINUE FOR 2 DAYS. 10/13/18 18:15 Blood - Peripheral Venous Blood Culture - Preliminary NO GROWTH OBTAINED AFTER 72 HOURS, INCUBATION TO CONTINUE FOR 2 DAYS. 10/14/18 14:45 Nares - Mrsa Screen - Right MRSA Screen - Final NO MRSA ISOLATED 10/14/18 14:45 Nares - Mrsa Screen - Left MRSA Screen - Final NO MRSA ISOLATED 10/13/18 18:33 Urine - Urine Navarro Urine Culture - Final NO GROWTH OBTAINED 10/14/18 11:00 Urine For Antigen Detection Legionella Antigen - Final 10/14/18 11:00 Urine For Antigen Detection Streptococcus pneumoniae Antigen (M - Final Problem List - Problems (1) Acute hypoxemic respiratory failure Assessment/Plan: -pulmonary on board -O2 via NC for SOB -maintain SpO2 >90% -continue with prednisone Code(s): J96.01 - ACUTE RESPIRATORY FAILURE WITH HYPOXIA (2) Influenza A Assessment/Plan: -continue with Tamiflu -ID on board -currently afebrile Code(s): J10.1 - FLU DUE TO OTH IDENT INFLUENZA VIRUS W OTH RESP MANIFEST (3) Sepsis due to pneumonia Assessment/Plan: -pulmonary and ID on board -afebrile -no leukocytosis -continue with vancomycin 1250mg IVPB q12h and ceftriaxone 1g daily -urine antigen neg -tylenol PRN for tem p >100.4F Code(s): J18.9 - PNEUMONIA, UNSPECIFIED ORGANISM; A41.9 - SEPSIS, UNSPECIFIED ORGANISM (4) Diabetes Assessment/Plan: -BGM ACHS -ISS and levemir -HgA1c 9.5% -endo on board Code(s): E11.9 - TYPE 2 DIABETES MELLITUS WITHOUT COMPLICATIONS Qualifiers: Diabetes mellitus type: type 2 (5) HTN (hypertension) Assessment/Plan: -continue with metoprolol, amlodipine, Code(s): I10 - ESSENTIAL (PRIMARY) HYPERTENSION Assessment/Plan see problem list dvt ppx
[2018-10-17] MEDS: VANCOMYCIN HCL 1,250 MG in DEXTROSE 5%-WATER - 250 ML IVPB SCH (11:13)
--- NOTE | 2018-10-17 15:56 | PN ---
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, Physician History of Present Illness: AWAKE, CONFUSED OFFERS NO COMPLAINTS NO ACUTE DISTRESS TEMPS, WBC DOWN AFEBRILE WBC WNL - Current Medication List Current Medications: Active Medications Acetaminophen (Tylenol -) 650 mg PO Q6H PRN PRN Reason: FEVER Amlodipine Besylate (Norvasc -) 10 mg PO DAILY [facility] Last Admin: 10/17/18 09:13 Dose: 10 mg Atorvastatin Calcium (Lipitor -) 10 mg PO HS [facility] Last Admin: 10/16/18 22:48 Dose: 10 mg Enoxaparin Sodium (Lovenox -) 40 mg SQ DAILY [facility] Last Admin: 10/17/18 09:15 Dose: 40 mg Folic Acid (Folic Acid -) 1 mg PO DAILY [facility] Last Admin: 10/17/18 09:15 Dose: 1 mg Ceftriaxone Sodium 1 gm/ (Dextrose) 50 mls @ 100 mls/hr IVPB DAILY [facility]; Protocol Last Admin: 10/17/18 09:13 Dose: 100 mls/hr Vancomycin HCl 1,250 mg/ (Dextrose) 250 mls @ 166.667 mls/hr IVPB Q12H [facility]; Protocol Last Admin: 10/17/18 11:13 Dose: 166.667 mls/hr Insulin Aspart (Novolog Vial Sliding Scale -) 1 vial SQ ACHS [facility]; Protocol Last Admin: 10/17/18 11:47 Dose: 4 unit Insulin Detemir (Levemir Vial) 18 units SQ BID@0700,2200 [facility] Last Admin: 10/17/18 07:09 Dose: 18 units Levetiracetam (Keppra -) 500 mg PO BID [facility] Last Admin: 10/17/18 09:13 Dose: 500 mg Metoprolol Tartrate (Lopressor -) 50 mg PO BID [facility] Last Admin: 10/17/18 09:15 Dose: 50 mg Oseltamivir Phosphate (Tamiflu -) 75 mg PO BID [facility] Stop: 10/19/18 09:59 Last Admin: 10/17/18 09:15 Dose: 75 mg Prednisone (Deltasone -) 40 mg PO DAILY [facility] Last Admin: 10/17/18 09:13 Dose: 40 mg Quetiapine Fumarate (Seroquel -) 12.5 mg PO DAILY [facility] Last Admin: 10/17/18 09:14 Dose: 12.5 mg Quetiapine Fumarate (Seroquel -) 25 mg PO HS [facility] Last Admin: 10/16/18 22:49 Dose: 25 mg Tamsulosin HCl (Flomax -) 0.4 mg PO DAILY@0830 [facility] Last Admin: 10/17/18 08:20 Dose: 0.4 mg - Objective Vital Signs: Vital Signs Temperature 98.1 F 10/17/18 14:15 Pulse Rate 61 10/17/18 14:15 Respiratory Rate 18 10/17/18 14:15 Blood Pressure 148/64 10/17/18 14:15 O2 Sat by Pulse Oximetry (%) 97 10/16/18 09:00 Constitutional: Yes: No Distress Cardiovascular: Yes: Regular Rate and Rhythm, S1, S2 Respiratory: Yes: CTA Bilaterally Gastrointestinal: Yes: Normal Bowel Sounds, Soft, Abdomen, Obese. No: Tenderness Edema: No Labs: CBC, BMP 10/16/18 06:00 10/16/18 06:00 INR, PTT INR 1.23 (0.83-1.09) H 10/13/18 18:33 Assessment/Plan ACUTE INFLUENZA RLL PNEUMONIA IMPROVED FEVER/ LEUKOCYTOSIS- IMPROVED LACTIC ACIDOSIS CONTINUE TAMIFLU CONTINE CEFTRIAXONE D/C VANCOMYCIN
[2018-10-17] MEDS: PATIENT'S OWN MEDICATION (NON-FORMULARY) (Linaclotide [Linzess] 145 MCG) PO SCH ×2 (18:47→18:48)
[2018-10-17] MEDS: ATORVASTATIN CA 10 MG TABLET (FP) PO SCH (22:20)
[2018-10-18] MEDS: INSULIN (LEVEMIR) 100 UNITS/ML UNITS SQ SCH ×2 (06:58→21:15)
[2018-10-18] MEDS: INSULIN SLIDING SCALE (NOVOLOG) 1 VIAL SQ SCH ×4 (06:59→23:34)
[2018-10-18] MEDS ORDERED: INSULIN (NOVOLOG) ASPART 100 UNITS/ML 10ML VIAL ONE ×2 (07:05→14:09)
[2018-10-18 07:39] LABS: HEMATOCRIT 43.3 % (35.4-49); MCH 30.1 pg (25.7-33.7); MCHC 34.6 g/dl (32.0-35.9); MEAN CELL VOLUME 87.2 fl (80-96); MEAN PLT VOLUME 9.4 fl (7.5-11.1); PLATELET COUNT 170 K/MM3 (134-434); RBC 4.97 M/mm3 (4.00-5.60); RDW 14.8 % (11.9-15.9); WHITE BLOOD COUNT 4.7 K/mm3 (4.0-10.0)
[2018-10-18 08:21] LABS: ALBUMIN 2.9 g/dl (3.4-5.0); ALK PHOS 86 U/L (45-117); ANION GAP 7 MMOL/L (8-16); BILIRUBIN,TOTAL 0.4 mg/dL (0.2-1); BLOOD UREA NITROGEN 15 mg/dL (7-18); CALCIUM 8.5 mg/dL (8.5-10.1); CHLORIDE 108 mmol/L (98-107); CO2 29 mmol/L (21-32); CREATININE 0.7 mg/dL (0.55-1.3); GLUCOSE,RANDOM 157 mg/dL (74-106); POTASSIUM 3.7 mmol/L (3.5-5.1); SGOT/AST 26 U/L (15-37); SGPT/ALT 38 U/L (13-61); SODIUM 144 mmol/L (136-145); TOT PROT 6.3 g/dl (6.4-8.2)
[2018-10-18] MEDS: TAMSULOSIN HCL 0.4 MG CAP PO SCH (08:35)
[2018-10-18] MEDS ORDERED: cefTRIAXone SODIUM 1 GM VIAL ONE (09:20)
[2018-10-18] MEDS ORDERED: DEXTROSE 5%-WATER - 50 ML IVPB ONE (09:21)
[2018-10-18] MEDS: CEFTRIAXONE 1 GM in DEXTROSE 5%-WATER - 50 ML IVPB SCH (09:34)
[2018-10-18] MEDS: METOPROLOL TARTRATE 50 MG TABLET (FP) PO SCH ×2 (09:35→19:15)
[2018-10-18] MEDS: levETIRAcetam 500 MG TABLET (FP) PO SCH ×2 (09:35→21:15)
[2018-10-18] MEDS: predniSONE 20 MG TABLET (UD) PO SCH (09:35)
[2018-10-18] MEDS: OSELTAMIVIR PHOSPHATE 75 MG CAPSULE PO SCH ×2 (09:36→19:15)
[2018-10-18] MEDS: amLODIPine BESYLATE 10 MG TABLET (FP) PO SCH (09:36)
[2018-10-18] MEDS: ENOXAPARIN NA (PORCINE) 40 MG/0.4 ML DISP.SYRIN SQ SCH (09:36)
[2018-10-18] MEDS: FOLIC ACID 1 MG TABLET (FP) PO SCH (09:36)
[2018-10-18] MEDS: QUEtiapine FUMARATE 25 MG TABLET (FP) PO SCH ×2 (09:43→19:15)
--- NOTE | 2018-10-18 13:17 | PN ---
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, Physician History of Present Illness: AWAKE, CONFUSED OFFERS NO COMPLAINTS APPEARS COMFORTABLE BREATHING NON-LABORED TEMPS, WBC DOWN AFEBRILE WBC WNL - Current Medication List Current Medications: Active Medications Acetaminophen (Tylenol -) 650 mg PO Q6H PRN PRN Reason: FEVER Amlodipine Besylate (Norvasc -) 10 mg PO DAILY [facility] Last Admin: 10/18/18 09:36 Dose: 10 mg Atorvastatin Calcium (Lipitor -) 10 mg PO HS [facility] Last Admin: 10/17/18 22:20 Dose: 10 mg Enoxaparin Sodium (Lovenox -) 40 mg SQ DAILY [facility] Last Admin: 10/18/18 09:36 Dose: 40 mg Folic Acid (Folic Acid -) 1 mg PO DAILY [facility] Last Admin: 10/18/18 09:36 Dose: 1 mg Ceftriaxone Sodium 1 gm/ (Dextrose) 50 mls @ 100 mls/hr IVPB DAILY [facility]; Protocol Last Admin: 10/18/18 09:34 Dose: 100 mls/hr Insulin Aspart (Novolog Vial Sliding Scale -) 1 vial SQ ACHS [facility]; Protocol Last Admin: 10/18/18 06:59 Dose: 2 unit Insulin Detemir (Levemir Vial) 18 units SQ BID@0700,2200 [facility] Last Admin: 10/18/18 06:58 Dose: 18 units Levetiracetam (Keppra -) 500 mg PO BID [facility] Last Admin: 10/18/18 09:35 Dose: 500 mg Metoprolol Tartrate (Lopressor -) 50 mg PO BID [facility] Last Admin: 10/18/18 09:35 Dose: 50 mg Oseltamivir Phosphate (Tamiflu -) 75 mg PO BID [facility] Stop: 10/19/18 09:59 Last Admin: 10/18/18 09:36 Dose: 75 mg Prednisone (Deltasone -) 40 mg PO DAILY [facility] Last Admin: 10/18/18 09:35 Dose: 40 mg Quetiapine Fumarate (Seroquel -) 12.5 mg PO DAILY [facility] Last Admin: 10/18/18 09:43 Dose: 12.5 mg Quetiapine Fumarate (Seroquel -) 25 mg PO HS [facility] Last Admin: 10/17/18 22:20 Dose: 25 mg Tamsulosin HCl (Flomax -) 0.4 mg PO DAILY@0830 [facility] Last Admin: 10/18/18 08:35 Dose: 0.4 mg - Objective Vital Signs: Vital Signs Temperature 97.7 F 10/18/18 06:00 Pulse Rate 55 L 10/18/18 06:00 Respiratory Rate 18 10/18/18 06:00 Blood Pressure 148/72 10/18/18 06:00 O2 Sat by Pulse Oximetry (%) 97 10/16/18 09:00 Constitutional: Yes: No Distress, Obese Eyes: Yes: Conjunctiva Clear Cardiovascular: Yes: Regular Rate and Rhythm, S1, S2 Respiratory: Yes: Rhonchi Gastrointestinal: Yes: Normal Bowel Sounds, Soft. No: Tenderness Labs: CBC, BMP 10/18/18 07:05 10/18/18 07:05 INR, PTT INR 1.23 (0.83-1.09) H 10/13/18 18:33 Assessment/Plan ACUTE INFLUENZA RLL PNEUMONIA IMPROVED FEVER/ LEUKOCYTOSIS- IMPROVED LACTIC ACIDOSIS COMPLETE COURSE OF TAMIFLU DAY#5 CEFTRIAXONE IF STABLE, SUBSTITUTE AUGMENTIN 875MG PO BID X 7D
--- NOTE | 2018-10-18 13:25 | PN ---
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, Physician - Current Medication List Current Medications: Active Medications Acetaminophen (Tylenol -) 650 mg PO Q6H PRN PRN Reason: FEVER Amlodipine Besylate (Norvasc -) 10 mg PO DAILY [facility] Last Admin: 10/18/18 09:36 Dose: 10 mg Atorvastatin Calcium (Lipitor -) 10 mg PO HS [facility] Last Admin: 10/17/18 22:20 Dose: 10 mg Enoxaparin Sodium (Lovenox -) 40 mg SQ DAILY [facility] Last Admin: 10/18/18 09:36 Dose: 40 mg Folic Acid (Folic Acid -) 1 mg PO DAILY [facility] Last Admin: 10/18/18 09:36 Dose: 1 mg Ceftriaxone Sodium 1 gm/ (Dextrose) 50 mls @ 100 mls/hr IVPB DAILY [facility]; Protocol Last Admin: 10/18/18 09:34 Dose: 100 mls/hr Insulin Aspart (Novolog Vial Sliding Scale -) 1 vial SQ ACHS [facility]; Protocol Last Admin: 10/18/18 06:59 Dose: 2 unit Insulin Detemir (Levemir Vial) 18 units SQ BID@0700,2200 [facility] Last Admin: 10/18/18 06:58 Dose: 18 units Levetiracetam (Keppra -) 500 mg PO BID [facility] Last Admin: 10/18/18 09:35 Dose: 500 mg Metoprolol Tartrate (Lopressor -) 50 mg PO BID [facility] Last Admin: 10/18/18 09:35 Dose: 50 mg Oseltamivir Phosphate (Tamiflu -) 75 mg PO BID [facility] Stop: 10/19/18 09:59 Last Admin: 10/18/18 09:36 Dose: 75 mg Prednisone (Deltasone -) 40 mg PO DAILY [facility] Last Admin: 10/18/18 09:35 Dose: 40 mg Quetiapine Fumarate (Seroquel -) 12.5 mg PO DAILY [facility] Last Admin: 10/18/18 09:43 Dose: 12.5 mg Quetiapine Fumarate (Seroquel -) 25 mg PO HS [facility] Last Admin: 10/17/18 22:20 Dose: 25 mg Tamsulosin HCl (Flomax -) 0.4 mg PO DAILY@0830 [facility] Last Admin: 10/18/18 08:35 Dose: 0.4 mg - Objective Vital Signs: Vital Signs Temperature 97.7 F 10/18/18 06:00 Pulse Rate 55 L 10/18/18 06:00 Respiratory Rate 18 10/18/18 06:00 Blood Pressure 148/72 10/18/18 06:00 O2 Sat by Pulse Oximetry (%) 97 10/16/18 09:00 Labs: CBC, BMP 10/18/18 07:05 10/18/18 07:05 INR, PTT INR 1.23 (0.83-1.09) H 10/13/18 18:33 Microbiology 10/13/18 18:15 Blood - Peripheral Venous Blood Culture - Preliminary NO GROWTH OBTAINED AFTER 96 HOURS, INCUBATION TO CONTINUE FOR 1 DAYS. 10/13/18 18:33 Blood - Peripheral Venous Blood Culture - Preliminary NO GROWTH OBTAINED AFTER 96 HOURS, INCUBATION TO CONTINUE FOR 1 DAYS. 10/14/18 14:45 Nares - Mrsa Screen - Right MRSA Screen - Final NO MRSA ISOLATED 10/14/18 14:45 Nares - Mrsa Screen - Left MRSA Screen - Final NO MRSA ISOLATED 10/13/18 18:33 Urine - Urine Navarro Urine Culture - Final NO GROWTH OBTAINED 10/14/18 11:00 Urine For Antigen Detection Legionella Antigen - Final 10/14/18 11:00 Urine For Antigen Detection Streptococcus pneumoniae Antigen (M - Final Problem List - Problems (1) Acute hypoxemic respiratory failure Code(s): J96.01 - ACUTE RESPIRATORY FAILURE WITH HYPOXIA (2) Influenza A Code(s): J10.1 - FLU DUE TO OTH IDENT INFLUENZA VIRUS W OTH RESP MANIFEST (3) Sepsis due to pneumonia Code(s): J18.9 - PNEUMONIA, UNSPECIFIED ORGANISM; A41.9 - SEPSIS, UNSPECIFIED ORGANISM (4) Diabetes Code(s): E11.9 - TYPE 2 DIABETES MELLITUS WITHOUT COMPLICATIONS Qualifiers: Diabetes mellitus type: type 2 (5) HTN (hypertension) Code(s): I10 - ESSENTIAL (PRIMARY) HYPERTENSION
--- NOTE | 2018-10-18 16:52 | PN ---
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, Physician History of Present Illness: PULMONARY SLEEPING,-RESP DISTRESS - Current Medication List Current Medications: Active Medications Acetaminophen (Tylenol -) 650 mg PO Q6H PRN PRN Reason: FEVER Amlodipine Besylate (Norvasc -) 10 mg PO DAILY [facility] Last Admin: 10/18/18 09:36 Dose: 10 mg Atorvastatin Calcium (Lipitor -) 10 mg PO HS [facility] Last Admin: 10/17/18 22:20 Dose: 10 mg Enoxaparin Sodium (Lovenox -) 40 mg SQ DAILY [facility] Last Admin: 10/18/18 09:36 Dose: 40 mg Folic Acid (Folic Acid -) 1 mg PO DAILY [facility] Last Admin: 10/18/18 09:36 Dose: 1 mg Ceftriaxone Sodium 1 gm/ (Dextrose) 50 mls @ 100 mls/hr IVPB DAILY [facility]; Protocol Last Admin: 10/18/18 09:34 Dose: 100 mls/hr Insulin Aspart (Novolog Vial Sliding Scale -) 1 vial SQ ACHS [facility]; Protocol Last Admin: 10/18/18 12:18 Dose: 4 unit Insulin Detemir (Levemir Vial) 18 units SQ BID@0700,2200 [facility] Last Admin: 10/18/18 06:58 Dose: 18 units Levetiracetam (Keppra -) 500 mg PO BID [facility] Last Admin: 10/18/18 09:35 Dose: 500 mg Metoprolol Tartrate (Lopressor -) 50 mg PO BID [facility] Last Admin: 10/18/18 09:35 Dose: 50 mg Oseltamivir Phosphate (Tamiflu -) 75 mg PO BID [facility] Stop: 10/19/18 09:59 Last Admin: 10/18/18 09:36 Dose: 75 mg Prednisone (Deltasone -) 40 mg PO DAILY [facility] Last Admin: 10/18/18 09:35 Dose: 40 mg Quetiapine Fumarate (Seroquel -) 12.5 mg PO DAILY [facility] Last Admin: 10/18/18 09:43 Dose: 12.5 mg Quetiapine Fumarate (Seroquel -) 25 mg PO HS [facility] Last Admin: 10/17/18 22:20 Dose: 25 mg Tamsulosin HCl (Flomax -) 0.4 mg PO DAILY@0830 [facility] Last Admin: 10/18/18 08:35 Dose: 0.4 mg - Objective Vital Signs: Vital Signs Temperature 98.4 F 10/18/18 14:18 Pulse Rate 74 10/18/18 14:18 Respiratory Rate 18 10/18/18 14:18 Blood Pressure 119/58 L 10/18/18 14:18 O2 Sat by Pulse Oximetry (%) 97 10/16/18 09:00 Constitutional: Yes: Well Nourished, Other (LETHARGIC) Eyes: Yes: WNL HENT: Yes: WNL Neck: Yes: WNL Cardiovascular: Yes: Regular Rate and Rhythm, S1, S2 Respiratory: Yes: Rhonchi (FEW RHONCHI) Gastrointestinal: Yes: Normal Bowel Sounds, Soft Extremities: Yes: WNL Edema: No Labs: CBC, BMP 10/18/18 07:05 10/18/18 07:05 INR, PTT INR 1.23 (0.83-1.09) H 10/13/18 18:33 Problem List - Problems (1) BPH (benign prostatic hyperplasia) Code(s): N40.0 - BENIGN PROSTATIC HYPERPLASIA WITHOUT LOWER URINRY TRACT SYMP (2) Influenza A Code(s): J10.1 - FLU DUE TO OTH IDENT INFLUENZA VIRUS W OTH RESP MANIFEST (3) Pneumonia Code(s): J18.9 - PNEUMONIA, UNSPECIFIED ORGANISM (4) Respiratory failure Code(s): J96.90 - RESPIRATORY FAILURE, UNSP, UNSP W HYPOXIA OR HYPERCAPNIA (5) Acute hypoxemic respiratory failure Code(s): J96.01 - ACUTE RESPIRATORY FAILURE WITH HYPOXIA (6) Diabetes Code(s): E11.9 - TYPE 2 DIABETES MELLITUS WITHOUT COMPLICATIONS Qualifiers: Diabetes mellitus type: type 2 (7) HTN (hypertension) Code(s): I10 - ESSENTIAL (PRIMARY) HYPERTENSION (8) Sepsis due to pneumonia Code(s): J18.9 - PNEUMONIA, UNSPECIFIED ORGANISM; A41.9 - SEPSIS, UNSPECIFIED ORGANISM (9) COPD (chronic obstructive pulmonary disease) Code(s): J44.9 - CHRONIC OBSTRUCTIVE PULMONARY DISEASE, UNSPECIFIED (10) COPD (chronic obstructive pulmonary disease) Code(s): J44.9 - CHRONIC OBSTRUCTIVE PULMONARY DISEASE, UNSPECIFIED Assessment/Plan ASSESSMENT AND PLAN: Acute Hypoxic Respiratory Failure Pneumonia Influenza A Severe Sepsis Lactic Acidosis Acute COPD Exacerbation Altered Mental Status improving HTN - antibiotics as per ID - tamiflu - prednisone - inhaled bronchodilators - O2 to keep Spo2 >90% - glucose control while on systemic steroids - DVT prophylaxis DR GRAY
[2018-10-18] MEDS: ATORVASTATIN CA 10 MG TABLET (FP) PO SCH (19:15)
[2018-10-18] MEDS ORDERED: INSULIN (NOVOLOG) ASPART 100 UNITS/ML 10ML VIAL SQ ONE (21:20)
[2018-10-19] MEDS: INSULIN (LEVEMIR) 100 UNITS/ML UNITS SQ SCH ×2 (06:23→22:58)
[2018-10-19] MEDS: INSULIN SLIDING SCALE (NOVOLOG) 1 VIAL SQ SCH ×4 (06:24→23:44)
[2018-10-19 08:15] LABS: ALBUMIN 2.9 g/dl (3.4-5.0); ALK PHOS 94 U/L (45-117); ANION GAP 3 MMOL/L (8-16); BILIRUBIN,TOTAL 0.4 mg/dL (0.2-1); BLOOD UREA NITROGEN 16 mg/dL (7-18); CALCIUM 8.9 mg/dL (8.5-10.1); CHLORIDE 109 mmol/L (98-107); CO2 30 mmol/L (21-32); CREATININE 0.5 mg/dL (0.55-1.3); GLUCOSE,RANDOM 68 mg/dL (74-106); POTASSIUM 3.7 mmol/L (3.5-5.1); SGOT/AST 57 U/L (15-37); SGPT/ALT 38 U/L (13-61); SODIUM 143 mmol/L (136-145); TOT PROT 6.5 g/dl (6.4-8.2)
[2018-10-19 08:30] LABS: HEMOGLOBIN 15.6 GM/dL (11.7-16.9); MCH 29.6 pg (25.7-33.7); MEAN CELL VOLUME 87.2 fl (80-96); MEAN PLT VOLUME 9.8 fl (7.5-11.1); PLATELET COUNT 175 K/MM3 (134-434); RBC 5.28 M/mm3 (4.00-5.60); RDW 14.7 % (11.9-15.9); WHITE BLOOD COUNT 6.6 K/mm3 (4.0-10.0)
[2018-10-19] MEDS: AMOX TR/POT CLAV 875MG/125MG TABLETS (FP) PO SCH ×2 (09:22→17:33)
[2018-10-19] MEDS: QUEtiapine FUMARATE 25 MG TABLET (FP) PO SCH ×2 (09:22→22:48)
[2018-10-19] MEDS: levETIRAcetam 500 MG TABLET (FP) PO SCH ×2 (09:22→22:47)
[2018-10-19] MEDS: predniSONE 20 MG TABLET (UD) PO SCH (09:23)
[2018-10-19] MEDS: FOLIC ACID 1 MG TABLET (FP) PO SCH (09:24)
[2018-10-19] MEDS: METOPROLOL TARTRATE 50 MG TABLET (FP) PO SCH ×2 (09:24→22:47)
[2018-10-19] MEDS: TAMSULOSIN HCL 0.4 MG CAP PO SCH (09:24)
[2018-10-19] MEDS: ENOXAPARIN NA (PORCINE) 40 MG/0.4 ML DISP.SYRIN SQ SCH (09:25)
[2018-10-19] MEDS: amLODIPine BESYLATE 10 MG TABLET (FP) PO SCH (10:51)
--- NOTE | 2018-10-19 12:37 | PN ---
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, Physician - Current Medication List Current Medications: Active Medications Acetaminophen (Tylenol -) 650 mg PO Q6H PRN PRN Reason: FEVER Amlodipine Besylate (Norvasc -) 10 mg PO DAILY [facility] Last Admin: 10/19/18 10:51 Dose: 10 mg Amoxicillin/Clavulanate Potassium (Augmentin - 875mg Tablet) 1 tab PO BID@0800, 1730 [facility] Last Admin: 10/19/18 09:22 Dose: 1 tab Atorvastatin Calcium (Lipitor -) 10 mg PO HS [facility] Last Admin: 10/18/18 19:15 Dose: 10 mg Enoxaparin Sodium (Lovenox -) 40 mg SQ DAILY [facility] Last Admin: 10/19/18 09:25 Dose: 40 mg Folic Acid (Folic Acid -) 1 mg PO DAILY [facility] Last Admin: 10/19/18 09:24 Dose: 1 mg Insulin Aspart (Novolog Vial Sliding Scale -) 1 vial SQ [facility]; Protocol Last Admin: 10/19/18 12:13 Dose: 2 unit Insulin Detemir (Levemir Vial) 18 units SQ BID@0700,2200 [facility] Last Admin: 10/19/18 06:23 Dose: Not Given Levetiracetam (Keppra -) 500 mg PO BID [facility] Last Admin: 10/19/18 09:22 Dose: 500 mg Metoprolol Tartrate (Lopressor -) 50 mg PO BID [facility] Last Admin: 10/19/18 09:24 Dose: 50 mg Prednisone (Deltasone -) 40 mg PO DAILY [facility] Last Admin: 10/19/18 09:23 Dose: 40 mg Quetiapine Fumarate (Seroquel -) 12.5 mg PO DAILY [facility] Last Admin: 10/19/18 09:22 Dose: 12.5 mg Quetiapine Fumarate (Seroquel -) 25 mg PO [facility] Last Admin: 10/18/18 19:15 Dose: 25 mg Tamsulosin HCl (Flomax -) 0.4 mg PO DAILY@0830 [facility] Last Admin: 10/19/18 09:24 Dose: 0.4 mg - Objective Vital Signs: Vital Signs Temperature 97.8 F 10/19/18 10:00 Pulse Rate 57 L 10/19/18 10:00 Respiratory Rate 20 10/19/18 10:00 Blood Pressure 134/60 10/19/18 10:00 O2 Sat by Pulse Oximetry (%) 97 10/16/18 09:00 Cardiovascular: Yes: S1, S2 Respiratory: Yes: Regular, CTA Bilaterally Gastrointestinal: Yes: Normal Bowel Sounds, Soft Labs: CBC, BMP 10/19/18 06:00 10/19/18 06:00 INR, PTT INR 1.23 (0.83-1.09) H 10/13/18 18:33 Problem List - Problems (1) Pneumonia Code(s): J18.9 - PNEUMONIA, UNSPECIFIED ORGANISM (2) Diabetes Code(s): E11.9 - TYPE 2 DIABETES MELLITUS WITHOUT COMPLICATIONS Qualifiers: Diabetes mellitus type: type 2 (3) Influenza A Code(s): J10.1 - FLU DUE TO OTH IDENT INFLUENZA VIRUS W OTH RESP MANIFEST (4) Sepsis due to pneumonia Code(s): J18.9 - PNEUMONIA, UNSPECIFIED ORGANISM; A41.9 - SEPSIS, UNSPECIFIED ORGANISM Assessment/Plan Problems (1) Acute hypoxemic respiratory failure Assessment/Plan: -pulmonary on board -O2 via NC for SOB -maintain SpO2 >90% -continue with prednisone Code(s): J96.01 - ACUTE RESPIRATORY FAILURE WITH HYPOXIA (2) Influenza A Assessment/Plan: -continue with Tamiflu -ID on board -currently afebrile Code(s): J10.1 - FLU DUE TO OTH IDENT INFLUENZA VIRUS W OTH RESP MANIFEST (3) Sepsis due to pneumonia Assessment/Plan: -pulmonary and ID on board -afebrile -no leukocytosis -continue with vancomycin 1250mg IVPB q12h and ceftriaxone 1g daily -urine antigen neg -tylenol PRN for tem p >100.4F Code(s): J18.9 - PNEUMONIA, UNSPECIFIED ORGANISM; A41.9 - SEPSIS, UNSPECIFIED ORGANISM (4) Diabetes Assessment/Plan: -BGM ACHS -ISS and levemir -HgA1c 9.5% -endo on board Code(s): E11.9 - TYPE 2 DIABETES MELLITUS WITHOUT COMPLICATIONS Qualifiers: Diabetes mellitus type: type 2 (5) HTN (hypertension) Assessment/Plan: -continue with metoprolol, amlodipine, Code(s): I10 - ESSENTIAL (PRIMARY) HYPERTENSION
--- NOTE | 2018-10-19 14:13 | PN ---
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, Physician History of Present Illness: pulmonary no distress,more awake,confused,-resp distress - Current Medication List Current Medications: Active Medications Acetaminophen (Tylenol -) 650 mg PO Q6H PRN PRN Reason: FEVER Amlodipine Besylate (Norvasc -) 10 mg PO DAILY [facility] Last Admin: 10/19/18 10:51 Dose: 10 mg Amoxicillin/Clavulanate Potassium (Augmentin - 875mg Tablet) 1 tab PO BID@0800, 1730 [facility] Last Admin: 10/19/18 09:22 Dose: 1 tab Atorvastatin Calcium (Lipitor -) 10 mg PO [facility] Last Admin: 10/18/18 19:15 Dose: 10 mg Enoxaparin Sodium (Lovenox -) 40 mg SQ DAILY [facility] Last Admin: 10/19/18 09:25 Dose: 40 mg Folic Acid (Folic Acid -) 1 mg PO DAILY [facility] Last Admin: 10/19/18 09:24 Dose: 1 mg Insulin Aspart (Novolog Vial Sliding Scale -) 1 vial SQ [facility]; Protocol Last Admin: 10/19/18 12:13 Dose: 2 unit Insulin Detemir (Levemir Vial) 18 units SQ BID@0700,2200 [facility] Last Admin: 10/19/18 06:23 Dose: Not Given Levetiracetam (Keppra -) 500 mg PO BID [facility] Last Admin: 10/19/18 09:22 Dose: 500 mg Metoprolol Tartrate (Lopressor -) 50 mg PO BID [facility] Last Admin: 10/19/18 09:24 Dose: 50 mg Prednisone (Deltasone -) 40 mg PO DAILY [facility] Last Admin: 10/19/18 09:23 Dose: 40 mg Quetiapine Fumarate (Seroquel -) 12.5 mg PO DAILY [facility] Last Admin: 10/19/18 09:22 Dose: 12.5 mg Quetiapine Fumarate (Seroquel -) 25 mg PO HS [facility] Last Admin: 10/18/18 19:15 Dose: 25 mg Tamsulosin HCl (Flomax -) 0.4 mg PO DAILY@0830 [facility] Last Admin: 10/19/18 09:24 Dose: 0.4 mg - Objective Vital Signs: Vital Signs Temperature 97.8 F 10/19/18 10:00 Pulse Rate 57 L 10/19/18 10:00 Respiratory Rate 20 10/19/18 10:00 Blood Pressure 134/60 10/19/18 10:00 O2 Sat by Pulse Oximetry (%) 97 10/16/18 09:00 Constitutional: Yes: Well Nourished, Calm Eyes: Yes: WNL HENT: Yes: WNL Neck: Yes: WNL Cardiovascular: Yes: Regular Rate and Rhythm, S1, S2 Respiratory: Yes: Diminished Gastrointestinal: Yes: Normal Bowel Sounds, Soft Extremities: Yes: WNL Edema: No Labs: CBC, BMP 10/19/18 06:00 10/19/18 06:00 INR, PTT INR 1.23 (0.83-1.09) H 10/13/18 18:33 Problem List - Problems (1) BPH (benign prostatic hyperplasia) Code(s): N40.0 - BENIGN PROSTATIC HYPERPLASIA WITHOUT LOWER URINRY TRACT SYMP (2) Influenza A Code(s): J10.1 - FLU DUE TO OTH IDENT INFLUENZA VIRUS W OTH RESP MANIFEST (3) Pneumonia Code(s): J18.9 - PNEUMONIA, UNSPECIFIED ORGANISM (4) Respiratory failure Code(s): J96.90 - RESPIRATORY FAILURE, UNSP, UNSP W HYPOXIA OR HYPERCAPNIA (5) Acute hypoxemic respiratory failure Code(s): J96.01 - ACUTE RESPIRATORY FAILURE WITH HYPOXIA (6) Diabetes Code(s): E11.9 - TYPE 2 DIABETES MELLITUS WITHOUT COMPLICATIONS Qualifiers: Diabetes mellitus type: type 2 (7) HTN (hypertension) Code(s): I10 - ESSENTIAL (PRIMARY) HYPERTENSION (8) Sepsis due to pneumonia Code(s): J18.9 - PNEUMONIA, UNSPECIFIED ORGANISM; A41.9 - SEPSIS, UNSPECIFIED ORGANISM (9) COPD (chronic obstructive pulmonary disease) Code(s): J44.9 - CHRONIC OBSTRUCTIVE PULMONARY DISEASE, UNSPECIFIED (10) COPD (chronic obstructive pulmonary disease) Code(s): J44.9 - CHRONIC OBSTRUCTIVE PULMONARY DISEASE, UNSPECIFIED Assessment/Plan ASSESSMENT AND PLAN: Acute Hypoxic Respiratory Failure improved Pneumonia Influenza A s/p tamiflu Severe Sepsis Lactic Acidosis Acute COPD Exacerbation Altered Mental Status improving HTN - antibiotics as per ID - prednisone - inhaled bronchodilators - O2 to keep Spo2 >90% - glucose control while on systemic steroids - DVT prophylaxis DR GRAY
[2018-10-19] MEDS: ATORVASTATIN CA 10 MG TABLET (FP) PO SCH (22:47)
[2018-10-20] MEDS: INSULIN SLIDING SCALE (NOVOLOG) 1 VIAL SQ SCH ×4 (06:47→22:04)
[2018-10-20] MEDS: INSULIN (LEVEMIR) 100 UNITS/ML UNITS SQ SCH ×2 (06:47→22:04)
[2018-10-20] MEDS ORDERED: PT OWN MED DRAWER 7, Y5N ONE (08:44)
[2018-10-20] MEDS: AMOX TR/POT CLAV 875MG/125MG TABLETS (FP) PO SCH ×2 (08:51→17:16)
[2018-10-20] MEDS: TAMSULOSIN HCL 0.4 MG CAP PO SCH (08:52)
[2018-10-20] MEDS: ENOXAPARIN NA (PORCINE) 40 MG/0.4 ML DISP.SYRIN SQ SCH (09:03)
[2018-10-20] MEDS: levETIRAcetam 500 MG TABLET (FP) PO SCH ×2 (09:03→22:04)
[2018-10-20] MEDS: METOPROLOL TARTRATE 50 MG TABLET (FP) PO SCH ×2 (09:03→22:04)
[2018-10-20] MEDS: predniSONE 20 MG TABLET (UD) PO SCH (09:03)
[2018-10-20] MEDS: QUEtiapine FUMARATE 25 MG TABLET (FP) PO SCH ×2 (09:03→22:04)
[2018-10-20] MEDS: FOLIC ACID 1 MG TABLET (FP) PO SCH (09:03)
[2018-10-20] MEDS: amLODIPine BESYLATE 10 MG TABLET (FP) PO SCH (09:04)
[2018-10-20] MEDS ORDERED: INSULIN (NOVOLOG) ASPART 100 UNITS/ML 10ML VIAL ONE (11:40)
--- NOTE | 2018-10-20 15:10 | PN ---
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, Physician History of Present Illness: PULMONARY MORE ALERT,NO DISTRESS,-SOB - Current Medication List Current Medications: Active Medications Acetaminophen (Tylenol -) 650 mg PO Q6H PRN PRN Reason: FEVER Amlodipine Besylate (Norvasc -) 10 mg PO DAILY [facility] Last Admin: 10/20/18 09:04 Dose: 10 mg Amoxicillin/Clavulanate Potassium (Augmentin - 875mg Tablet) 1 tab PO BID@0800, 1730 [facility] Last Admin: 10/20/18 08:51 Dose: 1 tab Atorvastatin Calcium (Lipitor -) 10 mg PO [facility] Last Admin: 10/19/18 22:47 Dose: 10 mg Enoxaparin Sodium (Lovenox -) 40 mg SQ DAILY [facility] Last Admin: 10/20/18 09:03 Dose: 40 mg Folic Acid (Folic Acid -) 1 mg PO DAILY [facility] Last Admin: 10/20/18 09:03 Dose: 1 mg Insulin Aspart (Novolog Vial Sliding Scale -) 1 vial SQ [facility]; Protocol Last Admin: 10/20/18 11:41 Dose: 2 unit Insulin Detemir (Levemir Vial) 18 units SQ BID@0700,2200 [facility] Last Admin: 10/20/18 06:47 Dose: 18 units Levetiracetam (Keppra -) 500 mg PO BID [facility] Last Admin: 10/20/18 09:03 Dose: 500 mg Metoprolol Tartrate (Lopressor -) 50 mg PO BID [facility] Last Admin: 10/20/18 09:03 Dose: 50 mg Prednisone (Deltasone -) 40 mg PO DAILY [facility] Last Admin: 10/20/18 09:03 Dose: 40 mg Quetiapine Fumarate (Seroquel -) 12.5 mg PO DAILY [facility] Last Admin: 10/20/18 09:03 Dose: 12.5 mg Quetiapine Fumarate (Seroquel -) 25 mg PO HS [facility] Last Admin: 10/19/18 22:48 Dose: 25 mg Tamsulosin HCl (Flomax -) 0.4 mg PO DAILY@0830 [facility] Last Admin: 10/20/18 08:52 Dose: 0.4 mg - Objective Vital Signs: Vital Signs Temperature 97.9 F 10/20/18 11:00 Pulse Rate 55 L 10/20/18 11:00 Respiratory Rate 20 10/20/18 11:00 Blood Pressure 150/67 10/20/18 11:00 O2 Sat by Pulse Oximetry (%) 97 10/16/18 09:00 Constitutional: Yes: Well Nourished, Calm Eyes: Yes: WNL HENT: Yes: WNL Neck: Yes: WNL Cardiovascular: Yes: Regular Rate and Rhythm, S1, S2 Respiratory: Yes: Diminished Gastrointestinal: Yes: Normal Bowel Sounds, Soft Extremities: Yes: WNL Edema: No Labs: CBC, BMP 10/19/18 06:00 Problem List - Problems (1) BPH (benign prostatic hyperplasia) Code(s): N40.0 - BENIGN PROSTATIC HYPERPLASIA WITHOUT LOWER URINRY TRACT SYMP (2) Influenza A Code(s): J10.1 - FLU DUE TO OTH IDENT INFLUENZA VIRUS W OTH RESP MANIFEST (3) Pneumonia Code(s): J18.9 - PNEUMONIA, UNSPECIFIED ORGANISM (4) Respiratory failure Code(s): J96.90 - RESPIRATORY FAILURE, UNSP, UNSP W HYPOXIA OR HYPERCAPNIA (5) Acute hypoxemic respiratory failure Code(s): J96.01 - ACUTE RESPIRATORY FAILURE WITH HYPOXIA (6) Diabetes Code(s): E11.9 - TYPE 2 DIABETES MELLITUS WITHOUT COMPLICATIONS Qualifiers: Diabetes mellitus type: type 2 (7) HTN (hypertension) Code(s): I10 - ESSENTIAL (PRIMARY) HYPERTENSION (8) Sepsis due to pneumonia Code(s): J18.9 - PNEUMONIA, UNSPECIFIED ORGANISM; A41.9 - SEPSIS, UNSPECIFIED ORGANISM (9) COPD (chronic obstructive pulmonary disease) Code(s): J44.9 - CHRONIC OBSTRUCTIVE PULMONARY DISEASE, UNSPECIFIED (10) COPD (chronic obstructive pulmonary disease) Code(s): J44.9 - CHRONIC OBSTRUCTIVE PULMONARY DISEASE, UNSPECIFIED Assessment/Plan ASSESSMENT AND PLAN: Acute Hypoxic Respiratory Failure improved Pneumonia Influenza A s/p tamiflu Severe Sepsis Lactic Acidosis Acute COPD Exacerbation Altered Mental Status improving HTN - antibiotics PO as per ID - prednisone - inhaled bronchodilators - O2 to keep Spo2 >90% - glucose control while on systemic steroids - DVT prophylaxis DR GRAY
[2018-10-20 15:37] VITALS: BMI 28.0
--- NOTE | 2018-10-20 15:45 | PN ---
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, Physician - Current Medication List Current Medications: Active Medications Acetaminophen (Tylenol -) 650 mg PO Q6H PRN PRN Reason: FEVER Amlodipine Besylate (Norvasc -) 10 mg PO DAILY [facility] Last Admin: 10/20/18 09:04 Dose: 10 mg Amoxicillin/Clavulanate Potassium (Augmentin - 875mg Tablet) 1 tab PO BID@0800, 1730 [facility] Last Admin: 10/20/18 08:51 Dose: 1 tab Atorvastatin Calcium (Lipitor -) 10 mg PO HS [facility] Last Admin: 10/19/18 22:47 Dose: 10 mg Enoxaparin Sodium (Lovenox -) 40 mg SQ DAILY [facility] Last Admin: 10/20/18 09:03 Dose: 40 mg Folic Acid (Folic Acid -) 1 mg PO DAILY [facility] Last Admin: 10/20/18 09:03 Dose: 1 mg Insulin Aspart (Novolog Vial Sliding Scale -) 1 vial SQ [facility]; Protocol Last Admin: 10/20/18 11:41 Dose: 2 unit Insulin Detemir (Levemir Vial) 18 units SQ BID@0700,2200 [facility] Last Admin: 10/20/18 06:47 Dose: 18 units Levetiracetam (Keppra -) 500 mg PO BID [facility] Last Admin: 10/20/18 09:03 Dose: 500 mg Metoprolol Tartrate (Lopressor -) 50 mg PO BID [facility] Last Admin: 10/20/18 09:03 Dose: 50 mg Prednisone (Deltasone -) 40 mg PO DAILY [facility] Last Admin: 10/20/18 09:03 Dose: 40 mg Quetiapine Fumarate (Seroquel -) 12.5 mg PO DAILY [facility] Last Admin: 10/20/18 09:03 Dose: 12.5 mg Quetiapine Fumarate (Seroquel -) 25 mg PO HS [facility] Last Admin: 10/19/18 22:48 Dose: 25 mg Tamsulosin HCl (Flomax -) 0.4 mg PO DAILY@0830 [facility] Last Admin: 10/20/18 08:52 Dose: 0.4 mg - Objective Vital Signs: Vital Signs Temperature 97.9 F 10/20/18 11:00 Pulse Rate 55 L 10/20/18 11:00 Respiratory Rate 20 10/20/18 11:00 Blood Pressure 150/67 10/20/18 11:00 O2 Sat by Pulse Oximetry (%) 97 10/16/18 09:00 Cardiovascular: Yes: S1, S2 Respiratory: Yes: Regular, CTA Bilaterally Gastrointestinal: Yes: Normal Bowel Sounds, Soft Labs: CBC, BMP 10/19/18 06:00 10/19/18 06:00 INR, PTT INR 1.23 (0.83-1.09) H 10/13/18 18:33 Problem List - Problems (1) Pneumonia Code(s): J18.9 - PNEUMONIA, UNSPECIFIED ORGANISM (2) Diabetes Code(s): E11.9 - TYPE 2 DIABETES MELLITUS WITHOUT COMPLICATIONS Qualifiers: Diabetes mellitus type: type 2 (3) Influenza A Code(s): J10.1 - FLU DUE TO OTH IDENT INFLUENZA VIRUS W OTH RESP MANIFEST (4) Sepsis due to pneumonia Code(s): J18.9 - PNEUMONIA, UNSPECIFIED ORGANISM; A41.9 - SEPSIS, UNSPECIFIED ORGANISM Assessment/Plan Problems (1) Acute hypoxemic respiratory failure Assessment/Plan: -pulmonary on board -O2 via NC for SOB -maintain SpO2 >90% -continue with prednisone Code(s): J96.01 - ACUTE RESPIRATORY FAILURE WITH HYPOXIA (2) Influenza A Assessment/Plan: -continue with Tamiflu -ID on board -currently afebrile Code(s): J10.1 - FLU DUE TO OTH IDENT INFLUENZA VIRUS W OTH RESP MANIFEST (3) Sepsis due to pneumonia Assessment/Plan: -pulmonary and ID on board -afebrile -no leukocytosis -continue with vancomycin 1250mg IVPB q12h and ceftriaxone 1g daily -urine antigen neg -tylenol PRN for tem p >100.4F Code(s): J18.9 - PNEUMONIA, UNSPECIFIED ORGANISM; A41.9 - SEPSIS, UNSPECIFIED ORGANISM (4) Diabetes Assessment/Plan: -BGM ACHS -ISS and levemir -HgA1c 9.5% -endo on board Code(s): E11.9 - TYPE 2 DIABETES MELLITUS WITHOUT COMPLICATIONS Qualifiers: Diabetes mellitus type: type 2 (5) HTN (hypertension) Assessment/Plan: -continue with metoprolol, amlodipine, Code(s): I10 - ESSENTIAL (PRIMARY) HYPERTENSION DC PLANNING
[2018-10-20] MEDS: ATORVASTATIN CA 10 MG TABLET (FP) PO SCH (22:04)
[2018-10-21] MEDS: INSULIN (LEVEMIR) 100 UNITS/ML UNITS SQ SCH (06:16)
[2018-10-21] MEDS: INSULIN SLIDING SCALE (NOVOLOG) 1 VIAL SQ SCH ×2 (06:16→11:18)
[2018-10-21] MEDS: TAMSULOSIN HCL 0.4 MG CAP PO SCH (08:39)
[2018-10-21] MEDS: AMOX TR/POT CLAV 875MG/125MG TABLETS (FP) PO SCH (08:39)
[2018-10-21] MEDS: levETIRAcetam 500 MG TABLET (FP) PO SCH (10:02)
[2018-10-21] MEDS: predniSONE 20 MG TABLET (UD) PO SCH (10:05)
[2018-10-21] MEDS: amLODIPine BESYLATE 10 MG TABLET (FP) PO SCH (10:06)
[2018-10-21] MEDS: FOLIC ACID 1 MG TABLET (FP) PO SCH (10:06)
[2018-10-21] MEDS: METOPROLOL TARTRATE 50 MG TABLET (FP) PO SCH (10:06)
[2018-10-21] MEDS: QUEtiapine FUMARATE 25 MG TABLET (FP) PO SCH (10:06)
[2018-10-21] MEDS: ENOXAPARIN NA (PORCINE) 40 MG/0.4 ML DISP.SYRIN SQ SCH (10:07)
--- NOTE | 2018-10-21 10:22 | PN ---
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 (short form) - Note 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: PULMONARY Not answering questions today. No fevers recorded. Vital Signs Period Temp Pulse Resp BP Sys/Louie Pulse Ox Last 24 Hr 97.4 F-98.1 F 50-87 18-20 106-150/56-67 Gen: NAD, breathing nonlabored Heart: RRR Lung: scattered wheezes Abd: soft, nontender Ext: no edema CBC, BMP 10/19/18 06:00 10/19/18 06:00 Active Medications Acetaminophen (Tylenol -) 650 mg PO Q6H PRN PRN Reason: FEVER Amlodipine Besylate (Norvasc -) 10 mg PO DAILY [facility] Last Admin: 10/21/18 10:06 Dose: 10 mg Amoxicillin/Clavulanate Potassium (Augmentin - 875mg Tablet) 1 tab PO BID@0800, 1730 [facility] Last Admin: 10/21/18 08:39 Dose: 1 tab Atorvastatin Calcium (Lipitor -) 10 mg PO HS [facility] Last Admin: 10/20/18 22:04 Dose: 10 mg Enoxaparin Sodium (Lovenox -) 40 mg SQ DAILY [facility] Last Admin: 10/21/18 10:07 Dose: 40 mg Folic Acid (Folic Acid -) 1 mg PO DAILY [facility] Last Admin: 10/21/18 10:06 Dose: 1 mg Insulin Aspart (Novolog Vial Sliding Scale -) 1 vial SQ [facility]; Protocol Last Admin: 10/21/18 06:16 Dose: Not Given Insulin Detemir (Levemir Vial) 18 units SQ BID@0700,2200 [facility] Last Admin: 10/21/18 06:16 Dose: 18 units Levetiracetam (Keppra -) 500 mg PO BID [facility] Last Admin: 10/21/18 10:02 Dose: 500 mg Metoprolol Tartrate (Lopressor -) 50 mg PO BID [facility] Last Admin: 10/21/18 10:06 Dose: 50 mg Prednisone (Deltasone -) 40 mg PO DAILY [facility] Last Admin: 10/21/18 10:05 Dose: 40 mg Quetiapine Fumarate (Seroquel -) 12.5 mg PO DAILY [facility] Last Admin: 10/21/18 10:06 Dose: 12.5 mg Quetiapine Fumarate (Seroquel -) 25 mg PO HS [facility] Last Admin: 10/20/18 22:04 Dose: 25 mg Tamsulosin HCl (Flomax -) 0.4 mg PO DAILY@0830 [facility] Last Admin: 10/21/18 08:39 Dose: 0.4 mg A/P Acute Hypoxic Respiratory Failure improving Pneumonia Influenza A treated Severe Sepsis resolved Acute COPD Exacerbation Altered Mental Status improving HTN - complete antibiotics - prednisone taper - inhaled bronchodilators - O2 to keep Spo2 >90% - glucose control while on systemic steroids - DVT prophylaxis - d/c planning
[2018-10-21] MEDS ORDERED: INSULIN (NOVOLOG) ASPART 100 UNITS/ML 10ML VIAL ONE (11:13)
[2018-10-21 11:25] VITALS: BP 119/63; PULSE 57; TEMP 97.3
--- NOTE | 2018-10-21 15:49 | DS ---
Physical Examination Vital Signs: Vital Signs Temperature 97.3 F L 10/21/18 10:00 Pulse Rate 57 L 10/21/18 10:00 Respiratory Rate 20 10/21/18 10:00 Blood Pressure 119/63 10/21/18 10:00 O2 Sat by Pulse Oximetry (%) 90 L 10/21/18 09:00 Findings/Remarks: Patient is a 78 y/o male with past medical history of spinal cancer?, COPD, DM. Patient presented to ER with AMS, fever, and leukocytosis from SNF. Lactic acid noted to be elevated. Patient was Influenza A positive and CXR showed extensive consolidation/atelectasis in RLL. Patient completed course of Tamiflu and IV ABT. Followed by ID and discharged home on PO antibiotics. Patient followed by pulmonary and should have prednisone taper. Patient will be returning to SNF. Constitutional: Yes: No Distress, Calm Eyes: Yes: Conjunctiva Clear HENT: Yes: Atraumatic Cardiovascular: Yes: Regular Rate and Rhythm Respiratory: Yes: Regular, Diminished Gastrointestinal: Yes: Normal Bowel Sounds, Soft, Abdomen, Obese, Other (non tender) Musculoskeletal: Yes: Muscle Weakness Extremities: Yes: WNL Edema: No Neurological: Yes: Alert, Pre-Existing Deficit Psychiatric: Yes: Alert Labs: CBC, BMP 10/19/18 06:00 10/19/18 06:00 Discharge Summary Reason For Visit: ACUTE RESPIRATORY FAILURE WITH HYPOXIA Current Active Problems Acute hypoxemic respiratory failure (Acute) BPH (benign prostatic hyperplasia) (Acute) COPD (chronic obstructive pulmonary disease) (Acute) COPD (chronic obstructive pulmonary disease) (Acute) Diabetes (Acute) HTN (hypertension) (Acute) Influenza A (Acute) Pneumonia (Acute) Respiratory failure (Acute) Sepsis due to pneumonia (Acute) Hospital Course: see progress notes Laboratory Tests 10/13/18 10/13/18 10/13/18 18:33 18:33 18:33 WBC 14.0 H RBC 5.63 H Hgb 16.8 Hct 49.7 H MCV 88.3 MCH 29.8 MCHC 33.7 RDW 15.1 Plt Count 160 MPV 10.6 Absolute Neuts (auto) 12.8 H Total Counted 100 Neutrophils % 91.6 H Neutrophils % (Manual) 67.0 Band Neutrophils % 21.0 Lymphocytes % 3.8 L Lymphocytes % (Manual) 4.0 L Monocytes % 4.4 Monocytes % (Manual) 7 Eosinophils % 0.0 Basophils % 0.2 Nucleated RBC % 0 Platelet Estimate Adequate PT with INR 14.50 H INR 1.23 H PTT (Actin FS) 29.4 VBG pH POC VBG pCO2 POC VBG pO2 Mixed VBG HCO3 Sodium Potassium Chloride Carbon Dioxide Anion Gap BUN Creatinine Creat Clearance w eGFR POC Glucometer Random Glucose Hemoglobin A1c % Lactic Acid Calcium Phosphorus Magnesium Total Bilirubin AST ALT Alkaline Phosphatase Troponin I B-Natriuretic Peptide Total Protein Albumin Urine Color Yellow Urine Appearance Clear Urine pH 6.0 Ur Specific [place] 1.016 Urine Protein Negative Urine Glucose (UA) 3+ H Urine Ketones Trace H Urine Blood 1+ H Urine Nitrite Negative Urine Bilirubin Negative Urine Urobilinogen 2.0 Ur Leukocyte Esterase Negative Urine WBC (Auto) 1 Urine RBC (Auto) <1 Urine Mucus Rare Influenza A (Rapid) Influenza B (Rapid) 10/13/18 10/13/18 10/13/18 18:33 18:33 18:33 WBC RBC Hgb Hct MCV MCH MCHC RDW Plt Count MPV Absolute Neuts (auto) Total Counted Neutrophils % Neutrophils % (Manual) Band Neutrophils % Lymphocytes % Lymphocytes % (Manual) Monocytes % Monocytes % (Manual) Eosinophils % Basophils % Nucleated RBC % Platelet Estimate PT with INR INR PTT (Actin FS) VBG pH 7.31 L POC VBG pCO2 48.1 POC VBG pO2 24.3 L Mixed VBG HCO3 23.6 Sodium 139 Potassium 4.1 Chloride 104 Carbon Dioxide 23 Anion Gap 12 BUN 13 Creatinine 1.3 Creat Clearance w eGFR 53.67 POC Glucometer Random Glucose 385 H* Hemoglobin A1c % Lactic Acid 3.2 H* Calcium 8.8 Phosphorus Magnesium Total Bilirubin 0.5 AST 34 ALT 37 Alkaline Phosphatase 129 H Troponin I B-Natriuretic Peptide Total Protein 7.3 Albumin 3.7 Urine Color Urine Appearance Urine pH Ur Specific [place] Urine Protein Urine Glucose (UA) Urine Ketones Urine Blood Urine Nitrite Urine Bilirubin Urine Urobilinogen Ur Leukocyte Esterase Urine WBC (Auto) Urine RBC (Auto) Urine Mucus Influenza A (Rapid) Influenza B (Rapid) 10/13/18 10/13/18 10/13/18 18:33 19:41 22:28 WBC RBC Hgb Hct MCV MCH MCHC RDW Plt Count MPV Absolute Neuts (auto) Total Counted Neutrophils % Neutrophils % (Manual) Band Neutrophils % Lymphocytes % Lymphocytes % (Manual) Monocytes % Monocytes % (Manual) Eosinophils % Basophils % Nucleated RBC % Platelet Estimate PT with INR INR PTT (Actin FS) VBG pH POC VBG pCO2 POC VBG pO2 Mixed VBG HCO3 Sodium Potassium Chloride Carbon Dioxide Anion Gap BUN Creatinine Creat Clearance w eGFR POC Glucometer Random Glucose Hemoglobin A1c % Lactic Acid 3.2 H* Calcium Phosphorus Magnesium Total Bilirubin AST ALT Alkaline Phosphatase Troponin I 0.02 B-Natriuretic Peptide 560.5 H Total Protein Albumin Urine Color Urine Appearance Urine pH Ur Specific [place] Urine Protein Urine Glucose (UA) Urine Ketones Urine Blood Urine Nitrite Urine Bilirubin Urine Urobilinogen Ur Leukocyte Esterase Urine WBC (Auto) Urine RBC (Auto) Urine Mucus Influenza A (Rapid) Influenza B (Rapid) 10/13/18 10/14/18 10/14/18 23:57 00:06 05:16 WBC RBC Hgb Hct MCV MCH MCHC RDW Plt Count MPV Absolute Neuts (auto) Total Counted Neutrophils % Neutrophils % (Manual) Band Neutrophils % Lymphocytes % Lymphocytes % (Manual) Monocytes % Monocytes % (Manual) Eosinophils % Basophils % Nucleated RBC % Platelet Estimate PT with INR INR PTT (Actin FS) VBG pH POC VBG pCO2 POC VBG pO2 Mixed VBG HCO3 Sodium Potassium Chloride Carbon Dioxide Anion Gap BUN Creatinine Creat Clearance w eGFR POC Glucometer 466 347 Random Glucose Hemoglobin A1c % Lactic Acid Calcium Phosphorus Magnesium Total Bilirubin AST ALT Alkaline Phosphatase Troponin I B-Natriuretic Peptide Total Protein Albumin Urine Color Urine Appearance Urine pH Ur Specific [place] Urine Protein Urine Glucose (UA) Urine Ketones Urine Blood Urine Nitrite Urine Bilirubin Urine Urobilinogen Ur Leukocyte Esterase Urine WBC (Auto) Urine RBC (Auto) Urine Mucus Influenza A (Rapid) Positive A Influenza B (Rapid) Negative 10/14/18 10/14/18 10/14/18 05:30 05:30 06:00 WBC 13.2 H RBC 4.67 Hgb 13.7 Hct 41.2 D MCV 88.1 MCH 29.3 MCHC 33.3 RDW 15.5 Plt Count 130 L MPV 10.4 Absolute Neuts (auto) 11.5 H Total Counted Neutrophils % 87.2 H Neutrophils % (Manual) Band Neutrophils % Lymphocytes % 8.3 D Lymphocytes % (Manual) Monocytes % 4.4 Monocytes % (Manual) Eosinophils % 0.0 Basophils % 0.1 Nucleated RBC % 0 Platelet Estimate PT with INR INR PTT (Actin FS) VBG pH POC VBG pCO2 POC VBG pO2 Mixed VBG HCO3 Sodium 140 Potassium 4.1 Chloride 107 Carbon Dioxide 25 Anion Gap 9 BUN 13 Creatinine 1.1 Creat Clearance w eGFR > 60 POC Glucometer Random Glucose 337 H* Hemoglobin A1c % 9.5 H Lactic Acid Calcium 7.8 L Phosphorus 3.5 Magnesium 2.2 Total Bilirubin 0.5 AST 25 ALT 31 Alkaline Phosphatase 92 Troponin I B-Natriuretic Peptide Total Protein 5.6 L Albumin 2.7 L Urine Color Urine Appearance Urine pH Ur Specific [place] Urine Protein Urine Glucose (UA) Urine Ketones Urine Blood Urine Nitrite Urine Bilirubin Urine Urobilinogen Ur Leukocyte Esterase Urine WBC (Auto) Urine RBC (Auto) Urine Mucus Influenza A (Rapid) Influenza B (Rapid) 10/14/18 10/14/18 10/14/18 08:25 12:00 18:19 WBC RBC Hgb Hct MCV MCH MCHC RDW Plt Count MPV Absolute Neuts (auto) Total Counted Neutrophils % Neutrophils % (Manual) Band Neutrophils % Lymphocytes % Lymphocytes % (Manual) Monocytes % Monocytes % (Manual) Eosinophils % Basophils % Nucleated RBC % Platelet Estimate PT with INR INR PTT (Actin FS) VBG pH POC VBG pCO2 POC VBG pO2 Mixed VBG HCO3 Sodium Potassium Chloride Carbon Dioxide Anion Gap BUN Creatinine Creat Clearance w eGFR POC Glucometer 103 226 Random Glucose Hemoglobin A1c % Lactic Acid 2.4 H* Calcium Phosphorus Magnesium Total Bilirubin AST ALT Alkaline Phosphatase Troponin I B-Natriuretic Peptide Total Protein Albumin Urine Color Urine Appearance Urine pH Ur Specific [place] Urine Protein Urine Glucose (UA) Urine Ketones Urine Blood Urine Nitrite Urine Bilirubin Urine Urobilinogen Ur Leukocyte Esterase Urine WBC (Auto) Urine RBC (Auto) Urine Mucus Influenza A (Rapid) Influenza B (Rapid) 10/14/18 10/15/18 10/15/18 21:55 05:30 05:30 WBC 12.8 H RBC 4.62 Hgb 14.0 Hct 40.5 MCV 87.6 MCH 30.4 MCHC 34.7 RDW 15.0 Plt Count 138 MPV 10.5 Absolute Neuts (auto) 11.5 H Total Counted Neutrophils % 89.7 H Neutrophils % (Manual) Band Neutrophils % Lymphocytes % 7.6 L Lymphocytes % (Manual) Monocytes % 2.6 L Monocytes % (Manual) Eosinophils % 0.0 Basophils % 0.1 Nucleated RBC % 0 Platelet Estimate PT with INR INR PTT (Actin FS) VBG pH POC VBG pCO2 POC VBG pO2 Mixed VBG HCO3 Sodium 142 Potassium 4.1 Chloride 111 H Carbon Dioxide 24 Anion Gap 7 L BUN 12 Creatinine 0.6 Creat Clearance w eGFR > 60 POC Glucometer 323 Random Glucose 243 H Hemoglobin A1c % Lactic Acid Calcium 8.4 L Phosphorus 2.4 L Magnesium 2.0 Total Bilirubin 0.4 AST 18 ALT 23 Alkaline Phosphatase 83 Troponin I B-Natriuretic Peptide Total Protein 5.7 L Albumin 2.6 L Urine Color Urine Appearance Urine pH Ur Specific [place] Urine Protein Urine Glucose (UA) Urine Ketones Urine Blood Urine Nitrite Urine Bilirubin Urine Urobilinogen Ur Leukocyte Esterase Urine WBC (Auto) Urine RBC (Auto) Urine Mucus Influenza A (Rapid) Influenza B (Rapid) 10/15/18 10/15/18 10/15/18 05:57 13:15 18:27 WBC RBC Hgb Hct MCV MCH MCHC RDW Plt Count MPV Absolute Neuts (auto) Total Counted Neutrophils % Neutrophils % (Manual) Band Neutrophils % Lymphocytes % Lymphocytes % (Manual) Monocytes % Monocytes % (Manual) Eosinophils % Basophils % Nucleated RBC % Platelet Estimate PT with INR INR PTT (Actin FS) VBG pH POC VBG pCO2 POC VBG pO2 Mixed VBG HCO3 Sodium Potassium Chloride Carbon Dioxide Anion Gap BUN Creatinine Creat Clearance w eGFR POC Glucometer 230 168 214 Random Glucose Hemoglobin A1c % Lactic Acid Calcium Phosphorus Magnesium Total Bilirubin AST ALT Alkaline Phosphatase Troponin I B-Natriuretic Peptide Total Protein Albumin Urine Color Urine Appearance Urine pH Ur Specific [place] Urine Protein Urine Glucose (UA) Urine Ketones Urine Blood Urine Nitrite Urine Bilirubin Urine Urobilinogen Ur Leukocyte Esterase Urine WBC (Auto) Urine RBC (Auto) Urine Mucus Influenza A (Rapid) Influenza B (Rapid) 10/15/18 10/16/18 10/16/18 22:25 05:42 06:00 WBC 5.6 RBC 4.84 Hgb 14.3 Hct 42.0 MCV 86.8 MCH 29.6 MCHC 34.1 RDW 15.3 Plt Count 142 MPV 10.3 Absolute Neuts (auto) 3.9 Total Counted Neutrophils % 70.2 D Neutrophils % (Manual) Band Neutrophils % Lymphocytes % 21.8 D Lymphocytes % (Manual) Monocytes % 7.3 D Monocytes % (Manual) Eosinophils % 0.5 D Basophils % 0.2 Nucleated RBC % 0 Platelet Estimate PT with INR INR PTT (Actin FS) VBG pH POC VBG pCO2 POC VBG pO2 Mixed VBG HCO3 Sodium Potassium Chloride Carbon Dioxide Anion Gap BUN Creatinine Creat Clearance w eGFR POC Glucometer 195 111 Random Glucose Hemoglobin A1c % Lactic Acid Calcium Phosphorus Magnesium Total Bilirubin AST ALT Alkaline Phosphatase Troponin I B-Natriuretic Peptide Total Protein Albumin Urine Color Urine Appearance Urine pH Ur Specific [place] Urine Protein Urine Glucose (UA) Urine Ketones Urine Blood Urine Nitrite Urine Bilirubin Urine Urobilinogen Ur Leukocyte Esterase Urine WBC (Auto) Urine RBC (Auto) Urine Mucus Influenza A (Rapid) Influenza B (Rapid) 10/16/18 10/16/18 10/16/18 06:00 11:43 17:44 WBC RBC Hgb Hct MCV MCH MCHC RDW Plt Count MPV Absolute Neuts (auto) Total Counted Neutrophils % Neutrophils % (Manual) Band Neutrophils % Lymphocytes % Lymphocytes % (Manual) Monocytes % Monocytes % (Manual) Eosinophils % Basophils % Nucleated RBC % Platelet Estimate PT with INR INR PTT (Actin FS) VBG pH POC VBG pCO2 POC VBG pO2 Mixed VBG HCO3 Sodium 143 Potassium 3.9 Chloride 109 H Carbon Dioxide 26 Anion Gap 8 BUN 12 Creatinine 0.4 L Creat Clearance w eGFR > 60 POC Glucometer 277 272 Random Glucose 106 Hemoglobin A1c % Lactic Acid Calcium 8.4 L Phosphorus 3.5 Magnesium 2.3 Total Bilirubin 0.4 AST 16 ALT 22 Alkaline Phosphatase 74 Troponin I B-Natriuretic Peptide Total Protein 5.6 L Albumin 2.7 L Urine Color Urine Appearance Urine pH Ur Specific [place] Urine Protein Urine Glucose (UA) Urine Ketones Urine Blood Urine Nitrite Urine Bilirubin Urine Urobilinogen Ur Leukocyte Esterase Urine WBC (Auto) Urine RBC (Auto) Urine Mucus Influenza A (Rapid) Influenza B (Rapid) 10/16/18 10/17/18 10/17/18 23:04 07:05 11:43 WBC RBC Hgb Hct MCV MCH MCHC RDW Plt Count MPV Absolute Neuts (auto) Total Counted Neutrophils % Neutrophils % (Manual) Band Neutrophils % Lymphocytes % Lymphocytes % (Manual) Monocytes % Monocytes % (Manual) Eosinophils % Basophils % Nucleated RBC % Platelet Estimate PT with INR INR PTT (Actin FS) VBG pH POC VBG pCO2 POC VBG pO2 Mixed VBG HCO3 Sodium Potassium Chloride Carbon Dioxide Anion Gap BUN Creatinine Creat Clearance w eGFR POC Glucometer 268 121 224 Random Glucose Hemoglobin A1c % Lactic Acid Calcium Phosphorus Magnesium Total Bilirubin AST ALT Alkaline Phosphatase Troponin I B-Natriuretic Peptide Total Protein Albumin Urine Color Urine Appearance Urine pH Ur Specific [place] Urine Protein Urine Glucose (UA) Urine Ketones Urine Blood Urine Nitrite Urine Bilirubin Urine Urobilinogen Ur Leukocyte Esterase Urine WBC (Auto) Urine RBC (Auto) Urine Mucus Influenza A (Rapid) Influenza B (Rapid) 10/17/18 10/17/18 10/18/18 17:49 22:14 06:56 WBC RBC Hgb Hct MCV MCH MCHC RDW Plt Count MPV Absolute Neuts (auto) Total Counted Neutrophils % Neutrophils % (Manual) Band Neutrophils % Lymphocytes % Lymphocytes % (Manual) Monocytes % Monocytes % (Manual) Eosinophils % Basophils % Nucleated RBC % Platelet Estimate PT with INR INR PTT (Actin FS) VBG pH POC VBG pCO2 POC VBG pO2 Mixed VBG HCO3 Sodium Potassium Chloride Carbon Dioxide Anion Gap BUN Creatinine Creat Clearance w eGFR POC Glucometer 278 318 161 Random Glucose Hemoglobin A1c % Lactic Acid Calcium Phosphorus Magnesium Total Bilirubin AST ALT Alkaline Phosphatase Troponin I B-Natriuretic Peptide Total Protein Albumin Urine Color Urine Appearance Urine pH Ur Specific [place] Urine Protein Urine Glucose (UA) Urine Ketones Urine Blood Urine Nitrite Urine Bilirubin Urine Urobilinogen Ur Leukocyte Esterase Urine WBC (Auto) Urine RBC (Auto) Urine Mucus Influenza A (Rapid) Influenza B (Rapid) 10/18/18 10/18/18 10/18/18 07:05 07:05 12:34 WBC 4.7 RBC 4.97 Hgb 15.0 Hct 43.3 MCV 87.2 MCH 30.1 MCHC 34.6 RDW 14.8 Plt Count 170 MPV 9.4 Absolute Neuts (auto) Total Counted Neutrophils % Neutrophils % (Manual) Band Neutrophils % Lymphocytes % Lymphocytes % (Manual) Monocytes % Monocytes % (Manual) Eosinophils % Basophils % Nucleated RBC % Platelet Estimate PT with INR INR PTT (Actin FS) VBG pH POC VBG pCO2 POC VBG pO2 Mixed VBG HCO3 Sodium 144 Potassium 3.7 Chloride 108 H Carbon Dioxide 29 Anion Gap 7 L BUN 15 Creatinine 0.7 Creat Clearance w eGFR > 60 POC Glucometer 219 Random Glucose 157 H Hemoglobin A1c % Lactic Acid Calcium 8.5 Phosphorus Magnesium Total Bilirubin 0.4 AST 26 ALT 38 Alkaline Phosphatase 86 Troponin I B-Natriuretic Peptide Total Protein 6.3 L Albumin 2.9 L Urine Color Urine Appearance Urine pH Ur Specific [place] Urine Protein Urine Glucose (UA) Urine Ketones Urine Blood Urine Nitrite Urine Bilirubin Urine Urobilinogen Ur Leukocyte Esterase Urine WBC (Auto) Urine RBC (Auto) Urine Mucus Influenza A (Rapid) Influenza B (Rapid) 10/18/18 10/18/18 10/19/18 17:20 21:18 00:38 WBC RBC Hgb Hct MCV MCH MCHC RDW Plt Count MPV Absolute Neuts (auto) Total Counted Neutrophils % Neutrophils % (Manual) Band Neutrophils % Lymphocytes % Lymphocytes % (Manual) Monocytes % Monocytes % (Manual) Eosinophils % Basophils % Nucleated RBC % Platelet Estimate PT with INR INR PTT (Actin FS) VBG pH POC VBG pCO2 POC VBG pO2 Mixed VBG HCO3 Sodium Potassium Chloride Carbon Dioxide Anion Gap BUN Creatinine Creat Clearance w eGFR POC Glucometer 325 348 238 Random Glucose Hemoglobin A1c % Lactic Acid Calcium Phosphorus Magnesium Total Bilirubin AST ALT Alkaline Phosphatase Troponin I B-Natriuretic Peptide Total Protein Albumin Urine Color Urine Appearance Urine pH Ur Specific [place] Urine Protein Urine Glucose (UA) Urine Ketones Urine Blood Urine Nitrite Urine Bilirubin Urine Urobilinogen Ur Leukocyte Esterase Urine WBC (Auto) Urine RBC (Auto) Urine Mucus Influenza A (Rapid) Influenza B (Rapid) 10/19/18 10/19/18 10/19/18 05:29 06:00 06:00 WBC 6.6 RBC 5.28 Hgb 15.6 Hct 46.0 MCV 87.2 MCH 29.6 MCHC 34.0 RDW 14.7 Plt Count 175 MPV 9.8 Absolute Neuts (auto) Total Counted Neutrophils % Neutrophils % (Manual) Band Neutrophils % Lymphocytes % Lymphocytes % (Manual) Monocytes % Monocytes % (Manual) Eosinophils % Basophils % Nucleated RBC % Platelet Estimate PT with INR INR PTT (Actin FS) VBG pH POC VBG pCO2 POC VBG pO2 Mixed VBG HCO3 Sodium 143 Potassium 3.7 Chloride 109 H Carbon Dioxide 30 Anion Gap 3 L BUN 16 Creatinine 0.5 L Creat Clearance w eGFR > 60 POC Glucometer 96 Random Glucose 68 L Hemoglobin A1c % Lactic Acid Calcium 8.9 Phosphorus Magnesium Total Bilirubin 0.4 AST 57 H ALT 38 Alkaline Phosphatase 94 Troponin I B-Natriuretic Peptide Total Protein 6.5 Albumin 2.9 L Urine Color Urine Appearance Urine pH Ur Specific [place] Urine Protein Urine Glucose (UA) Urine Ketones Urine Blood Urine Nitrite Urine Bilirubin Urine Urobilinogen Ur Leukocyte Esterase Urine WBC (Auto) Urine RBC (Auto) Urine Mucus Influenza A (Rapid) Influenza B (Rapid) 10/19/18 10/19/18 10/19/18 12:10 17:27 22:57 WBC RBC Hgb Hct MCV MCH MCHC RDW Plt Count MPV Absolute Neuts (auto) Total Counted Neutrophils % Neutrophils % (Manual) Band Neutrophils % Lymphocytes % Lymphocytes % (Manual) Monocytes % Monocytes % (Manual) Eosinophils % Basophils % Nucleated RBC % Platelet Estimate PT with INR INR PTT (Actin FS) VBG pH POC VBG pCO2 POC VBG pO2 Mixed VBG HCO3 Sodium Potassium Chloride Carbon Dioxide Anion Gap BUN Creatinine Creat Clearance w eGFR POC Glucometer 155 241 292 Random Glucose Hemoglobin A1c % Lactic Acid Calcium Phosphorus Magnesium Total Bilirubin AST ALT Alkaline Phosphatase Troponin I B-Natriuretic Peptide Total Protein Albumin Urine Color Urine Appearance Urine pH Ur Specific [place] Urine Protein Urine Glucose (UA) Urine Ketones Urine Blood Urine Nitrite Urine Bilirubin Urine Urobilinogen Ur Leukocyte Esterase Urine WBC (Auto) Urine RBC (Auto) Urine Mucus Influenza A (Rapid) Influenza B (Rapid) 10/20/18 10/20/18 10/20/18 06:46 11:38 17:21 WBC RBC Hgb Hct MCV MCH MCHC RDW Plt Count MPV Absolute Neuts (auto) Total Counted Neutrophils % Neutrophils % (Manual) Band Neutrophils % Lymphocytes % Lymphocytes % (Manual) Monocytes % Monocytes % (Manual) Eosinophils % Basophils % Nucleated RBC % Platelet Estimate PT with INR INR PTT (Actin FS) VBG pH POC VBG pCO2 POC VBG pO2 Mixed VBG HCO3 Sodium Potassium Chloride Carbon Dioxide Anion Gap BUN Creatinine Creat Clearance w eGFR POC Glucometer 144 177 159 Random Glucose Hemoglobin A1c % Lactic Acid Calcium Phosphorus Magnesium Total Bilirubin AST ALT Alkaline Phosphatase Troponin I B-Natriuretic Peptide Total Protein Albumin Urine Color Urine Appearance Urine pH Ur Specific [place] Urine Protein Urine Glucose (UA) Urine Ketones Urine Blood Urine Nitrite Urine Bilirubin Urine Urobilinogen Ur Leukocyte Esterase Urine WBC (Auto) Urine RBC (Auto) Urine Mucus Influenza A (Rapid) Influenza B (Rapid) 10/20/18 10/21/18 10/21/18 22:03 06:14 11:17 WBC RBC Hgb Hct MCV MCH MCHC RDW Plt Count MPV Absolute Neuts (auto) Total Counted Neutrophils % Neutrophils % (Manual) Band Neutrophils % Lymphocytes % Lymphocytes % (Manual) Monocytes % Monocytes % (Manual) Eosinophils % Basophils % Nucleated RBC % Platelet Estimate PT with INR INR PTT (Actin FS) VBG pH POC VBG pCO2 POC VBG pO2 Mixed VBG HCO3 Sodium Potassium Chloride Carbon Dioxide Anion Gap BUN Creatinine Creat Clearance w eGFR POC Glucometer 271 98 149 Random Glucose Hemoglobin A1c % Lactic Acid Calcium Phosphorus Magnesium Total Bilirubin AST ALT Alkaline Phosphatase Troponin I B-Natriuretic Peptide Total Protein Albumin Urine Color Urine Appearance Urine pH Ur Specific [place] Urine Protein Urine Glucose (UA) Urine Ketones Urine Blood Urine Nitrite Urine Bilirubin Urine Urobilinogen Ur Leukocyte Esterase Urine WBC (Auto) Urine RBC (Auto) Urine Mucus Influenza A (Rapid) Influenza B (Rapid) Active Medications Generic Name Dose Route Start Last Admin Trade Name Freq PRN Reason Stop Dose Admin Acetaminophen 650 mg 10/15/18 16:57 Tylenol - PO Q6H PRN FEVER Amlodipine Besylate 10 mg 10/16/18 10:00 10/21/18 10:06 Norvasc - PO 10 mg DAILY BC Administration Amoxicillin/Clavulanate Potassium 1 tab 10/19/18 08:00 10/21/18 08:39 Augmentin - 875mg Tablet PO 1 tab BID@0800,1730 BC Administration Atorvastatin Calcium 10 mg 10/16/18 22:00 10/20/18 22:04 Lipitor - PO 10 mg HS BC Administration Enoxaparin Sodium 40 mg 10/16/18 10:00 10/21/18 10:07 Lovenox - SQ 40 mg DAILY BC Administration Folic Acid 1 mg 10/16/18 10:00 10/21/18 10:06 Folic Acid - PO 1 mg DAILY BC Administration Insulin Aspart 1 vial 10/16/18 11:00 10/21/18 11:18 Novolog Vial Sliding Scale - SQ Not Given [facility] Protocol Insulin Detemir 18 units 10/17/18 07:00 10/21/18 06:16 Levemir Vial SQ 18 units BID@0700,2200 BC Administration Levetiracetam 500 mg 10/16/18 10:00 10/21/18 10:02 Keppra - PO 500 mg BID BC Administration Metoprolol Tartrate 50 mg 10/16/18 10:00 10/21/18 10:06 Lopressor - PO 50 mg BID BC Administration Prednisone 40 mg 10/17/18 10:00 10/21/18 10:05 Deltasone - PO 40 mg DAILY BC Administration Quetiapine Fumarate 12.5 mg 10/16/18 10:00 10/21/18 10:06 Seroquel - PO 12.5 mg DAILY BC Administration Quetiapine Fumarate 25 mg 10/16/18 22:00 10/20/18 22:04 Seroquel - PO 25 mg HS BC Administration Tamsulosin HCl 0.4 mg 10/16/18 08:30 10/21/18 08:39 Flomax - PO 0.4 mg DAILY@0830 BC Administration Microbiology 10/13/18 18:33 Blood - Peripheral Venous Blood Culture - Final NO GROWTH AFTER 5 DAYS INCUBATION 10/13/18 18:15 Blood - Peripheral Venous Blood Culture - Final NO GROWTH AFTER 5 DAYS INCUBATION 10/14/18 14:45 Nares - Mrsa Screen - Right MRSA Screen - Final NO MRSA ISOLATED 10/14/18 14:45 Nares - Mrsa Screen - Left MRSA Screen - Final NO MRSA ISOLATED 10/13/18 18:33 Urine - Urine Navarro Urine Culture - Final NO GROWTH OBTAINED 10/14/18 11:00 Urine For Antigen Detection Legionella Antigen - Final 10/14/18 11:00 Urine For Antigen Detection Streptococcus pneumoniae Antigen (M - Final Condition: Stable - Instructions Diet, Activity, Other Instructions: Follow up with credit administration specialist continue PO augmentin BID x 4 days follow up with PMD return to ER if notice change in mental status, chest pain respiratory distress Referrals: Bari Barragan MD [Staff Physician] - Disposition: [facility] - Home Medications Comprehensive Discharge Medication List: Ambulatory Orders Amlodipine Besylate 10 mg PO DAILY 10/13/18 Folic Acid 1 mg PO DAILY 10/13/18 Insulin Glargine,Hum.rec.anlog [Lantus] 15 unit SQ HS 10/13/18 Linaclotide [Linzess] 145 mcg PO DAILY 10/13/18 Metoprolol Tartrate 50 mg PO BID 10/13/18 Quetiapine Fumarate [Seroquel -] 25 mg PO HS 10/13/18 Simvastatin 20 mg PO HS 10/13/18 Tamsulosin HCl [Flomax] 0.4 mg PO DAILY 10/13/18 Timolol 0.5% [Timoptic] 1 drop OU DAILY 10/13/18 levETIRAcetam [Keppra -] 1,000 mg PO BID 10/13/18 Brimonidine/Dorzolamide/Pf [Brimonidine 0.15%-Dorzolam 2%] 1 drop OP TID Quetiapine Fumarate [Seroquel -] 12.5 mg PO DAILY 10/14/18
== END 2018-10-21 16:13 | DRG 871 ==
LOC: JER 18:20 → JERBED 21:16 → JICU 10-14 00:05 → J8W 10-15 21:10
PROVIDERS: ADMIT Internal Medicine; ATTEND Family Medicine
DX: A41.9 Sepsis, unspecified organism (principal); J10.00 Influenza due to other identified influenza virus with unspecified type of pneumonia; J96.01 Acute respiratory failure with hypoxia; G93.6 Cerebral edema; G93.41 Metabolic encephalopathy; E87.2 Acidosis; J44.1 Chronic obstructive pulmonary disease with (acute) exacerbation; R65.20 Severe sepsis without septic shock; N40.0 Benign prostatic hyperplasia without lower urinary tract symptoms; I10 Essential (primary) hypertension; R41.82 Altered mental status, unspecified; D72.829 Elevated white blood cell count, unspecified; D69.6 Thrombocytopenia, unspecified; E11.65 Type 2 diabetes mellitus with hyperglycemia; K59.00 Constipation, unspecified; E78.5 Hyperlipidemia, unspecified
CPT/HCPCS: 36415; 70450-TC; 71045-TC-FY; 71275-TC; 80053; 81003; 81015; 82803; 82962; 83036; 83605; 83735; 83880; 84100; 84484; 85025; 85027; 85610; 85730; 87040; 87081; 87086; 87804; 87899; 93005; 93010; 94640; 94660; 97116-GP; 97161-GP; 99285-25; J0131; J7030

== ENCOUNTER 2019-09-25 09:50 | Inpatient (IN) | payer OTHER ==
[2019-09-25 10:38] LABS: INR 1.1 (0.83-1.09)
[2019-09-25 10:40] LABS: BASO % 0.3 % (0-2.0); HEMATOCRIT 50.6 % (35.4-49); HEMOGLOBIN 15.9 GM/dL (11.7-16.9); LYMPH % 40.3 % (8-40); MCH 28.3 pg (25.7-33.7); MCHC 31.5 g/dl (32.0-35.9); MEAN CELL VOLUME 90.1 fl (80-96); MEAN PLT VOLUME 10.1 fl (7.5-11.1); MONO % 4.9 % (3.8-10.2); NEUT % 52.5 % (42.8-82.8); PLATELET COUNT 254 K/MM3 (134-434); RBC 5.61 M/mm3 (4.00-5.60); RDW 15.9 % (11.9-15.9); WHITE BLOOD COUNT 17.6 K/mm3 (4.0-10.0)
[2019-09-25 10:41] LABS: ACTIVATED PTT 32.5 SECONDS (25.2-36.5)
[2019-09-25 10:45] LABS: ARTERIAL BLD GAS O2 SATURATION 96.2 % (95-98); ARTERIAL BLOOD GAS BASE EXCESS -5.6 meq/l (-2-2); ARTERIAL BLOOD GAS PCO2 48.7 mmHg (35-45); ARTERIAL BLOOD GAS PO2 106 mmHg (80-100); ARTERIAL BLOOD GAS pH 7.27 (7.35-7.45); CARBOXYHEMOGLOBIN 0.8 % (0-2)
[2019-09-25] MEDS ORDERED: FENTANYL INJECTION 500 MCG in DEXTROSE 5%-WATER - 90 ML IVPB SCH (10:45)
[2019-09-25 11:07] LABS: ALBUMIN 2.7 g/dl (3.4-5.0); BILIRUBIN,TOTAL 0.4 mg/dL (0.2-1); BLOOD UREA NITROGEN 17.3 mg/dL (7-18); CALCIUM 8.1 mg/dL (8.5-10.1); CREATININE 1.1 mg/dL (0.55-1.3); TOT PROT 6.3 g/dl (6.4-8.2)
[2019-09-25 11:08] LABS: POTASSIUM 3.4 mmol/L (3.5-5.1)
[2019-09-25] MEDS ORDERED: MAGNESIUM SULF 50% (8.12 MEQ/2 ML-1 GM VIAL) IVPB ONE (11:09)
[2019-09-25] MEDS ORDERED: MAGNESIUM 1GM/D5W - 1 GM/100 ML IVPB IVPB ONE (11:31)
[2019-09-25] MEDS ORDERED: fentaNYL CITRATE/PF 1,000 MCG/20 ML AMPUL IVPUSH ONE (11:50)
[2019-09-25] MEDS ORDERED: POTASSIUM CHLORIDE ORAL LIQUID 20 MEQ/15 ML PO ONE (11:54)
--- NOTE | 2019-09-25 11:54 | CONSULT ---
Consultation: REQUESTING PROVIDER: Dr. Garsia CONSULT REQUEST: ICU management HISTORY OF PRESENT ILLNESS: 79 y/o male with PMH of meningeal neoplasm s/p radiation, DM, HTN, HLD presents to the ED from [facility] s/p cardiac arrest- as per EMS and shelter , patient had been eating a piece of bread when he began to choke, nursing staff performed the heimlich manuver then patient lost a pulse, CPR was initiated EMS was called and CPR was done for 25 mins ( with 2 r rounds of epi given; rhythm is PEA) patient was then intubated in the ER ; notable labs : WBC 17.6 Na 151, K 3.4, Cr 1.1, Lactic Acid 8.1- AST 186 ALT 144 REVIEW OF SYSTEMS: UNABLE TO OBTAIN PATIENT IS INTUBATED CONSTITUTIONAL: Absent: fever, chills, diaphoresis, generalized weakness, malaise, loss of appetite, weight change HEENT: Absent: rhinorrhea, nasal congestion, throat pain, throat swelling, difficulty swallowing, mouth swelling, ear pain, eye pain, visual changes CARDIOVASCULAR: Absent: chest pain, syncope, palpitations, irregular heart rate, lightheadedness , peripheral edema RESPIRATORY: Absent: cough, shortness of breath, dyspnea with exertion, orthopnea, wheezing, stridor, hemoptysis GASTROINTESTINAL: Absent: abdominal pain, abdominal distension, nausea, vomiting, diarrhea, constipation, melena, hematochezia GENITOURINARY: Absent: dysuria, frequency, urgency, hesitancy, hematuria, flank pain, genital pain MUSCULOSKELETAL: Absent: myalgia, arthralgia, joint swelling, back pain, neck pain SKIN: Absent: rash, itching, pallor HEMATOLOGIC/IMMUNOLOGIC: Absent: easy bleeding, easy bruising, lymphadenopathy, frequent infections ENDOCRINE: Absent: unexplained weight gain, unexplained weight loss, heat intolerance, cold intolerance NEUROLOGIC: Absent: headache, focal weakness or paresthesias, dizziness, unsteady gait, seizure, mental status changes, bladder or bowel incontinence PSYCHIATRIC: Absent: anxiety, depression, suicidal or homicidal ideation, hallucinations. PHYSICAL EXAMINATION Vital Signs - 24 hr 09/25/19 09/25/19 09/25/19 09:50 09:57 10:00 Pulse Rate 66 Pulse Rate [ 77 70 Right Radial] Respiratory 16 16 19 Rate Blood Pressure 192/76 H Blood Pressure 177/71 H 180/88 H [Left Arm] O2 Sat by Pulse 92 L 94 L Oximetry (%) 09/25/19 09/25/19 09/25/19 10:05 10:10 10:13 Pulse Rate Pulse Rate [ 137 H 129 H Right Radial] Respiratory 14 19 19 Rate Blood Pressure Blood Pressure 165/103 H 140/62 [Left Arm] O2 Sat by Pulse Oximetry (%) 09/25/19 09/25/19 09/25/19 10:15 10:17 10:20 Pulse Rate 87 Pulse Rate [ 128 H 126 H Right Radial] Respiratory 18 21 H Rate Blood Pressure Blood Pressure 133/69 104/77 [Left Arm] O2 Sat by Pulse 95 Oximetry (%) 09/25/19 09/25/19 09/25/19 10:25 10:30 10:35 Pulse Rate Pulse Rate [ 125 H 122 H 121 H Right Radial] Respiratory 25 H 28 H Rate Blood Pressure Blood Pressure 113/71 103/61 101/60 [Left Arm] O2 Sat by Pulse Oximetry (%) 09/25/19 09/25/19 09/25/19 10:40 10:45 10:50 Pulse Rate Pulse Rate [ 119 H 121 H 121 H Right Radial] Respiratory 22 H 26 H 24 H Rate Blood Pressure Blood Pressure 91/56 L 102/53 L 98/62 [Left Arm] O2 Sat by Pulse 94 L Oximetry (%) 09/25/19 11:39 Pulse Rate Pulse Rate [ Right Radial] Respiratory Rate Blood Pressure Blood Pressure [Left Arm] O2 Sat by Pulse 97 Oximetry (%) GENERAL: intubated; sedated EYES: assymmetical (R>L); non-reactive, dilated EARS, NOSE, THROAT: absent gag reflex. NECK: no JVD; no lymphadenopathyy LUNGS: vented; slight rhonchi appreciated b/l. HEART: rrr s1; s2; no murmurs/rubs/gallops ABDOMEN: Soft, NT/ND+BS in all 4 quadrants MUSCULOSKELETAL: Normal range of motion at all joints. No bony deformities or tenderness. No CVA tenderness. EXTREMITIES: warm; well-perfused 2+ pitting edema B/L NEUROLOGICAL: sedated; spontaneous jerking of extremities SKIN: Warm, dry, normal turgor, no rashes or lesions noted. Laboratory Results - last 24 hr 02/09/25/19 09/25/19 10:00 10:00 10:00 WBC RBC Hgb Hct MCV MCH MCHC RDW Plt Count MPV Absolute Neuts (auto) Neutrophils % Lymphocytes % Monocytes % Eosinophils % Basophils % Nucleated RBC % PT with INR 13.00 INR 1.10 H PTT (Actin FS) 32.5 Anticoagulation Therapy Puncture Site ABG pH ABG pCO2 at Pt Temp ABG pO2 at Pt Temp ABG HCO3 ABG O2 Sat (Measured) ABG O2 Content ABG Base Excess Ben Test Carboxyhemoglobin Methemoglobin O2 Delivery Device Oxygen Flow Rate Vent Mode Vent Rate Mechanical Rate Pressure Support Vent Sodium 151 H Potassium 3.4 L Chloride 119 H Carbon Dioxide 20 L Anion Gap 12 BUN 17.3 Creatinine 1.1 Est GFR (CKD-EPI)AfAm 74.65 Est GFR (CKD-EPI)NonAf 64.41 Random Glucose 299 H Lactic Acid 8.1 H* Calcium 8.1 L Total Bilirubin 0.4 AST 186 H ALT 158 H Alkaline Phosphatase 144 H Creatine Kinase 95 Troponin I 0.03 Total Protein 6.3 L Albumin 2.7 L 09/25/19 09/25/19 09/25/19 10:29 10:35 11:25 WBC 17.6 H RBC 5.61 H Hgb 15.9 Hct 50.6 H MCV 90.1 MCH 28.3 MCHC 31.5 L RDW 15.9 Plt Count 254 D MPV 10.1 Absolute Neuts (auto) 9.2 H Neutrophils % 52.5 D Lymphocytes % 40.3 H D Monocytes % 4.9 Eosinophils % 2.0 D Basophils % 0.3 Nucleated RBC % 0 PT with INR INR PTT (Actin FS) Anticoagulation Therapy No Result Required. Puncture Site No Result Required. ABG pH 7.27 L ABG pCO2 at Pt Temp 48.7 H ABG pO2 at Pt Temp 106 H ABG HCO3 21.3 L ABG O2 Sat (Measured) 96.2 ABG O2 Content 20.7 ABG Base Excess -5.6 L Ben Test No Result Required. Carboxyhemoglobin 0.8 Methemoglobin 1.2 O2 Delivery Device No Result Required. Oxygen Flow Rate No Result Required. No Result Required. Vent Mode No Result Required. Vent Rate No Result Required. Mechanical Rate No Result Required. Pressure Support Vent No Result Required. Sodium Potassium Chloride Carbon Dioxide Anion Gap BUN Creatinine Est GFR (CKD-EPI)AfAm Est GFR (CKD-EPI)NonAf Random Glucose Lactic Acid Calcium Total Bilirubin AST ALT Alkaline Phosphatase Creatine Kinase Troponin I Total Protein Albumin Active Medications Generic Name Dose Route Start Last Admin Trade Name Bryan PRN Reason Stop Dose Admin Chlorhexidine Gluconate 1 applic 09/25/19 22:00 Hibiclens For Decolonization - TP HS BC Fentanyl 500 mcg/ Dextrose 100 mls @ 5 mls/hr 09/25/19 10:45 09/25/19 11:28 IVPB 25 mcg/hr TITR BC 5 mls/hr Administration 25 MCG/HR Propofol 100 mls @ 3.402 mls/hr 09/25/19 12:00 Diprivan - IV TITR BC Protocol 5 MCG/KG/MIN Lactated Ringer's 1,000 ml in 1,000 mls @ 100 mls/hr 09/25/19 12:00 Lactated Ringers Solution IV ASDIR BC Mupirocin 1 applic 09/25/19 22:00 Bactroban Ointment (For Decolonization) - NS 09/30/19 21:59 BID BC ASSESSMENT/PLAN: 79 y/o male with PMH of brain tumor s/p radiation, DM, HTN, HLD presents to the ED from [facility] s/p cardiac arrest- #Neuro history of spinal meninges intubated; sedated -on propofol drip; -neuro consulted #Cardio history of HTN, HLD -s/p cardiac arrest -hypothermia protocol initiated; -f/u cardiac profile -echo ordered -cards consulted -monitor hemodynamics #Endo history of DM -BGMS ACHS -ISS #GI NPO -transaminitis likely 2/2 hypoperfusion from CPR #ID afebrile; elevated lactic acid WBC 17.6 -IVF; repeat lactic acid #Pulm intubated; sedated; no infiltrates seen on XRAY TV 450 rate 16 PEEP 5 -repeat CXR in AM F/E/N LR @100 replete electrolytes NPO Problem List - Problems (1) Cardiac arrest Code(s): I46.9 - CARDIAC ARREST, CAUSE UNSPECIFIED (2) Hypernatremia Code(s): E87.0 - HYPEROSMOLALITY AND HYPERNATREMIA (3) Lactic acidosis Code(s): E87.2 - ACIDOSIS (4) Transaminitis Code(s): R74.0 - NONSPEC ELEV OF LEVELS OF TRANSAMNS & LACTIC ACID DEHYDRGNSE Visit type - Emergency Visit Emergency Visit: Yes ED Registration Date: 09/25/19 Care time: The patient presented to the Emergency Department on the above date and was hospitalized for further evaluation of their emergent condition. - New Patient This patient is new to me today: Yes Date on this admission: 09/25/19 - Critical Care Critical Care patient: Yes Total Critical Care Time (in minutes): 35 Critical Care Statement: The care of this patient involved high complexity decision making to prevent further life threatening deterioration of the patient 's condition and/or to evaluate & treat vital organ system(s) failure or risk of failure. ATTENDING PHYSICIAN STATEMENT I saw and evaluated the patient. I reviewed the resident's note and discussed the case with the resident. I agree with the resident's findings and plan as documented. SUBJECTIVE: OBJECTIVE: ASSESSMENT AND PLAN:
[2019-09-25] MEDS ORDERED: LACTATED RINGERS SOLUTION 1,000 ML/1,000 ML INFUS.BAG IV SCH (12:00)
--- NOTE | 2019-09-25 12:22 | PDOC ---
History of Present Illness - General Chief Complaint: Cardiac Arrest Stated Complaint: UNRESPONSIVE - History of Present Illness Initial Comments: The pt is a 79M w/ a history of COPD, HTN, DM from [facility] presents s/p cardiac arrest. The pt was found unresponsive at the NE, CPR was initiated and was continued by EMS. EMS placed 2 EJs, intubated the patient, and gave Epi 2mg. ROSC was achieved after approximately 25 minutes. Pt arrived intubated. Pt unable to provide history. Per reports, pt likely aspirated on food/bread 09/25/19 12:18 Past History - Past Medical History Allergies/Adverse Reactions: Allergies Allergy/AdvReac Type Severity Reaction Status Date / Time No Known Allergies Allergy Verified 09/25/19 09:53 Home Medications: Ambulatory Orders Amlodipine Besylate 10 mg PO DAILY 10/13/18 Folic Acid 1 mg PO DAILY 10/13/18 Linaclotide [Linzess] 145 mcg PO DAILY 10/13/18 Metoprolol Tartrate 50 mg PO BID 10/13/18 Simvastatin 20 mg PO HS 10/13/18 Tamsulosin HCl [Flomax] 0.4 mg PO DAILY 10/13/18 Timolol 0.5% [Timoptic] 1 drop OU DAILY 10/13/18 levETIRAcetam [Keppra -] 1,000 mg PO BID 10/13/18 Brimonidine/Dorzolamide/Pf [Brimonidine 0.15%-Dorzolam 2%] 1 drop OP TID Acetaminophen [Pain Relief] 650 mg PO PRN PRN 09/25/19 Insulin Glargine,Hum.rec.anlog [Basaglar Kwikpen U-100] 46 unit SQ DAILY Insulin Sliding Scale [Novolog Vial Sliding Scale -] 4 units SQ ACHS 09/25/19 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) CVA: Yes COPD: No Dementia: Yes Diabetes: Yes GI Disorders: (constipation) Disorders: Yes (enlarged prostate) HTN: Yes Hypercholesterolemia: Yes Psychiatric Problems: Yes (bipolar) Seizures: Yes - Psycho Social/Smoking Cessation Hx Smoking History: Unknown if ever smoked Have you smoked in the past 12 months: No Hx Alcohol Use: No Drug/Substance Use Hx: No Hx Substance Use Treatment: No Review of Systems - Review of Systems Able to Perform ROS?: No (2/2 medical condition) *Physical Exam - Vital Signs Last Vital Signs Temp Pulse Resp BP Pulse Ox 121 H 24 H 98/62 97 09/25/19 10:50 09/25/19 10:50 09/25/19 10:50 09/25/19 11:39 - Physical Exam GENERAL: Unresponsive HEAD: No signs of trauma, normocephalic, atraumatic EYES: Pupils fixed and dilated ENT: ETT in place LUNGS: Breath sounds equal b/l HEART: Tachycardic rate with regular rhythm ABDOMEN: Soft, protuberant EXTREMITIES: No wounds or rashes NEUROLOGICAL: Pupils fixed, no gag reflex, does not withdraw/localize to pain SKIN: Cool, Dry 09/25/19 17:54 ED Treatment Course - LABORATORY CBC & Chemistry Diagram: 09/25/19 10:29 09/25/19 10:00 - ADDITIONAL ORDERS Additional order review: Laboratory Results 09/25/19 09/25/19 09/25/19 11:25 10:35 10:00 PT with INR INR PTT (Actin FS) Anticoagulation Therapy No Result Required. Puncture Site No Result Required. ABG pH 7.27 L ABG pCO2 at Pt Temp 48.7 H ABG pO2 at Pt Temp 106 H ABG HCO3 21.3 L ABG O2 Sat (Measured) 96.2 ABG O2 Content 20.7 ABG Base Excess -5.6 L Ben Test No Result Required. Carboxyhemoglobin 0.8 Methemoglobin 1.2 O2 Delivery Device No Result Required. Oxygen Flow Rate No Result Required. No Result Required. Vent Mode No Result Required. Vent Rate No Result Required. Mechanical Rate No Result Required. Pressure Support Vent No Result Required. Sodium Potassium Chloride Carbon Dioxide Anion Gap BUN Creatinine Est GFR (CKD-EPI)AfAm Est GFR (CKD-EPI)NonAf Random Glucose Lactic Acid 8.1 H* Calcium Total Bilirubin AST ALT Alkaline Phosphatase Creatine Kinase Troponin I Total Protein Albumin 09/25/19 09/25/19 10:00 10:00 PT with INR 13.00 INR 1.10 H PTT (Actin FS) 32.5 Anticoagulation Therapy Puncture Site ABG pH ABG pCO2 at Pt Temp ABG pO2 at Pt Temp ABG HCO3 ABG O2 Sat (Measured) ABG O2 Content ABG Base Excess Ben Test Carboxyhemoglobin Methemoglobin O2 Delivery Device Oxygen Flow Rate Vent Mode Vent Rate Mechanical Rate Pressure Support Vent Sodium 151 H Potassium 3.4 L Chloride 119 H Carbon Dioxide 20 L Anion Gap 12 BUN 17.3 Creatinine 1.1 Est GFR (CKD-EPI)AfAm 74.65 Est GFR (CKD-EPI)NonAf 64.41 Random Glucose 299 H Lactic Acid Calcium 8.1 L Total Bilirubin 0.4 AST 186 H ALT 158 H Alkaline Phosphatase 144 H Creatine Kinase 95 Troponin I 0.03 Total Protein 6.3 L Albumin 2.7 L 09/25/19 10:29 RBC 5.61 H MCV 90.1 MCHC 31.5 L RDW 15.9 MPV 10.1 Neutrophils % 52.5 D Lymphocytes % 40.3 H D Monocytes % 4.9 Eosinophils % 2.0 D Basophils % 0.3 - RADIOLOGY Radiology Studies Ordered: Category Date Time Status CHEST X-RAY PORTABLE* [RAD] Stat Radiology 09/25/19 10:40 Completed - Medications Given in the ED: ED Medications Discontinued Medications Generic Name Dose Route Start Last Admin Trade Name Lucianoq PRN Reason Stop Dose Admin Fentanyl 100 mcg 09/25/19 11:30 09/25/19 11:00 Sublimaze Injection - IVPUSH 09/25/19 11:31 100 mcg ONCE ONE Administration Magnesium Sulfate 1 gm 09/25/19 11:09 09/25/19 11:38 Magnesium Sulfate IVPB 09/25/19 11:10 1 gm ONCE ONE Administration Medical Decision Making - Critical Care Time Total Critical Care Time (minutes): 60 Critical Care Statement: The care of this patient involved high complexity decision making to prevent further life threatening deterioration of the patient 's condition and/or to evaluate & treat vital organ system(s) failure or risk of failure. - Medical Decision Making ED Course Per reports, pt likely aspirated at NE Pt presented via EMS intubated w/ b/l EJ in place s/p Epi 1mg x2 in field Pt transferred to our monitor, breath sounds confirmed, left AC 20g IV obtained , labs sent b/l Carotid palpated Pupils fixed and dilated 1amp Bicarb given Wide complex tachycardia noted, Amio 150mg started -and stopped when noted to have increased ectopic beats Leukocytosis noted No anemia Hypomag noted, will replete Trop and Lactate elevated, likely 2/2 demand/post arrest Transaminitis noted Pt receiving IVF ICU consulted Pt admitted to Dr. Stiles's service 09/25/19 12:22 Discharge - Discharge Information Problems reviewed: Yes Clinical Impression/Diagnosis: Cardiac arrest, Transaminitis Diabetes Qualifiers: Diabetes mellitus type: type 2 Diabetes mellitus half-way insulin use: unspecified half-way insulin use status Diabetes mellitus complication status: with other specified complication Qualified Code(s): E11.69 - Type 2 diabetes mellitus with other specified complication Condition: Critical - Admission Yes - Follow up/Referral - Patient Discharge Instructions - Post Discharge Activity
[2019-09-25 12:41] LABS: ARTERIAL BLD GAS O2 SATURATION 92.6 % (95-98); ARTERIAL BLOOD GAS BASE EXCESS -5.2 meq/l (-2-2); ARTERIAL BLOOD GAS PCO2 50.1 mmHg (35-45); ARTERIAL BLOOD GAS PO2 78.8 mmHg (80-100); ARTERIAL BLOOD GAS pH 7.26 (7.35-7.45); CARBOXYHEMOGLOBIN 0.9 % (0-2)
[2019-09-25 12:42] LABS: ALLENS TEST POSITIVE
--- NOTE | 2019-09-25 12:42 | CON.CARD ---
Consult Consult Specialty:: Cardiology Referred by:: Dr. Bautista Reason for Consultation:: Cardiac arrest - History of Present Illness Chief Complaint: Cardiac arrest, respiratory failure History of Present Illness: History is obtained from the chart as patient is intubated and cannot provide history at this time: 79 y/o male with PMH of meningeal neoplasm s/p radiation, DM, HTN, HLD presents to the ED from [facility] s/p cardiac arrest- as per EMS and senior care , patient had been eating a piece of bread when he began to choke, nursing staff performed the heimlich manuver then patient lost a pulse, CPR was initiated EMS was called and CPR was done for 25 mins ( with 2 rounds of epi given; rhythm is PEA.) Patient was intubated for acute respiratory failure. Labs are notable for: Na 151 Lactic Acid 8.1 WBC 18 Elevated liver enzymes. Hypertensive on presentation. Now sedated on vent. Daughter at bedside, reports no prior hx of [place]. ECG: NSR with Wenkebach, RVH, Deep TWI V2/V3, AvF (9:58 AM) #2 Undetermined rhythm, RBBB, LVH, inferior Qs, LAD (10:15AM) - History Source History Provided By: Family Member, Medical Record - Past Medical History [employer]: Yes: Seizure Cardio/Vascular: Yes: HTN, Hyperlipdemia Renal/: Yes: BPH Psych: Yes: Bipolar Endocrine: Yes: Diabetes Mellitus - Alcohol/Substance Use Hx Alcohol Use: No - Smoking History Smoking history: Unknown if ever smoked Have you smoked in the past 12 months: No - Social History Usual Living Arrangement: Alf ADL: Support Services History of Recent Travel: No Home Medications - Allergies Allergies/Adverse Reactions: Allergies Allergy/AdvReac Type Severity Reaction Status Date / Time No Known Allergies Allergy Verified 09/25/19 09:53 - Home Medications Home Medications: Ambulatory Orders Amlodipine Besylate 10 mg PO DAILY 10/13/18 Folic Acid 1 mg PO DAILY 10/13/18 Insulin Glargine,Hum.rec.anlog [Lantus] 15 unit SQ HS 10/13/18 Linaclotide [Linzess] 145 mcg PO DAILY 10/13/18 Metoprolol Tartrate 50 mg PO BID 10/13/18 Quetiapine Fumarate [Seroquel -] 25 mg PO HS 10/13/18 Simvastatin 20 mg PO HS 10/13/18 Tamsulosin HCl [Flomax] 0.4 mg PO DAILY 10/13/18 Timolol 0.5% [Timoptic] 1 drop OU DAILY 10/13/18 levETIRAcetam [Keppra -] 1,000 mg PO BID 10/13/18 Brimonidine/Dorzolamide/Pf [Brimonidine 0.15%-Dorzolam 2%] 1 drop OP TID Quetiapine Fumarate [Seroquel -] 12.5 mg PO DAILY 10/14/18 Family Medical History Family History: Unremarkable (not pertinent to this presentation) Review of Systems Unable to obtain ROS, reason: Intubated- unable to obta - Risk Factors Known Risk Factors: Yes: Diabetes Mellitus, Hypertension Vital Signs: Vital Signs Temperature Pulse Rate 121 H 09/25/19 10:50 Respiratory Rate 24 H 09/25/19 10:50 Blood Pressure 98/62 09/25/19 10:50 O2 Sat by Pulse Oximetry (%) 97 09/25/19 11:39 Constitutional: Yes: Other (+ ETT) Respiratory: Yes: Rhonchi, Other (= breath sounds bilaterally/ diffuse rhonchi) Gastrointestinal: Yes: Soft Cardiovascular: Yes: Regular Rate and Rhythm JVD: No Carotid Bruit: No Heart Sounds: Yes: S1, S2 (RRR, no murmurs) Edema: No Neurological: Yes: Other (sedated on vent) - Other Data Labs, Other Data: CBC, BMP 09/25/19 10:29 09/25/19 10:00 INR, PTT INR 1.10 (0.83-1.09) H 09/25/19 10:00 Troponin, BNP 09/25/19 10:00 Troponin I 0.03 Troponin, BNP 09/25/19 10:00 Troponin I 0.03 Laboratory Tests 09/25/19 09/25/19 09/25/19 10:00 10:00 10:29 WBC 17.6 H Hgb 15.9 Plt Count 254 D ABG pH ABG pCO2 at Pt Temp ABG O2 Content Sodium 151 H Potassium 3.4 L Lactic Acid 8.1 H* AST 186 H ALT 158 H Alkaline Phosphatase 144 H Troponin I 0.03 Albumin 2.7 L 09/25/19 10:35 WBC Hgb Plt Count ABG pH 7.27 L ABG pCO2 at Pt Temp 48.7 H ABG O2 Content 20.7 Sodium Potassium Lactic Acid AST ALT Alkaline Phosphatase Troponin I Albumin See HPI Echo: Pending Imaging - Results Chest X-ray: Image Reviewed (serial X rays reviewed: latest CXR with right sided infiltrates) EKG: Image Reviewed Assessment/Plan IMP: Acute respiratory failure secondary to suspected aspiration event Cardiopulmonary arrest in setting of above (reported PEA arrest, likely due to hypoxia) Probable aspiration PNA Shock liver secondary to cardiopulmonary arrest Hypernatremia Abnormal ECG REC: 1. Admit to ICU 2. Vent support, vent management as per Critical Care. 3. F/u cultures, choice of abx for possible aspiration as per Critical Care team. 4. Free water repletion. 5. Currently not requiring pressors. 6. Echo for EF assessment, wall motion, RVSP. 7. Stat Head CT to r/o intracranial bleed (hypertensive on presentation with T wave inversions on ECG). 8. Serial cardiac enzymes, ECGs. Initial TnI negative. ECG with nonspecific T wave changes post CPR. At this time, does not appear to be a primary ACS but will monitor closely in ICU with echo/enzymes/tele/ECGs. Will follow. Please call as/if needed for clinical changes.
--- NOTE | 2019-09-25 12:43 | PDOC ---
Documentation entered by Hamida Morrison SCRIBE, acting as scribe for Asia Garsia MD. Asia Garsia MD: This documentation has been prepared by the Tamiko clement Brenda, SCRIBE, under my direction and personally reviewed by me in its entirety. I confirm that the documentation accurately reflects all work, treatment, procedures, and medical decision making performed by me. Attending Attestation - Resident Resident Name: Galen Bautista - ED Attending Attestation I have performed the following: I have examined & evaluated the patient, The case was reviewed & discussed with the resident, I agree w/resident's findings & plan, Exceptions are as noted - HPI HPI: 09/25/19 11:50 The patient is a 78 year old male with a significant PMH of spinal cancer, COPD and DM who presents to [facility] from [facility] s/p cardiac arrest. as per EMS the patient was eating and then was found unresponsive with a piece of bread in the mouth. CPR was started by senior living staff 15 minutes prior to EMS arrival. As per EMS, upon arival the patient was found in systole, was given epi and was intubated with spontaneous rhythm. Allergies: NKA Past surgical history: None reported Social history: No reported hx of tobacco use, alcohol use or illicit drug use. PCP: Go - Physicial Exam PE: 09/25/19 12:35 Pt presents to the ED complaining of - Critical Care Time Total Critical Care Time: 45 Critical Care Statement: The care of this patient involved high complexity decision making to prevent further life threatening deterioration of the patient 's condition and/or to evaluate & treat vital organ system(s) failure or risk of failure. - Medical Decision Making 09/25/19 12:36 Pt presents to the ED post arrest. In arrest for 25-35 minutes as per EMS. Ectopy and long pauses on arrival to the ED, which now seem to have resolved and may have been secondary to epi and levophed. concern for aspiration-- pressures within normal limits on the vent, pox in low 90s, OG tube placed after 3rd attempt for decompression. Will admit to ICU. Will initiate hypothermia protocol.
[2019-09-25] MEDS ORDERED: PROPOFOL 1,000,000 MCG/100 ML VIAL ONE ×2 (12:45→21:38)
[2019-09-25] MEDS: PROPOFOL 1,000,000 MCG/100 ML VIAL IV SCH (12:53)
--- NOTE | 2019-09-25 13:09 | HP ---
Admitting History and Physical - Primary Care Physician PCP: Rolando Stiles - Admission Chief Complaint: Cardiac Arrest History of Present Illness: Patient is a 79 y/o male with past medical history of COPD HTN, DM from [facility]. Patient is s/p cardiac arrest. As per EMS patient was eating a piece of bread when he began to choke. Staff at [facility] performed Heimlich manuver and patient lost pulse and CPR was initiated and continued by EMS. Patient received 2 rounds of epi in the field and ROSC was achieved at 25min. Patient is currently intubated and sedated, history received from chart. History Source: Medical Record Limitations to Obtaining History: Clinical Condition - Past Medical History HEADING MAKER: Yes: Seizure Cardiovascular: Yes: HTN, Hyperlipdemia Renal/: Yes: BPH Heme/Onc: Yes: Cancer (benign neoplasm of spinal meninges. ) Psych: Yes: Bipolar Endocrine: Yes: Diabetes Mellitus - Smoking History Smoking history: Unknown if ever smoked Have you smoked in the past 12 months: No - Alcohol/Substance Use Hx Alcohol Use: No - Social History Usual Living Arrangement: Yes: [facility] ADL: Support Services History of Recent Travel: No Home Medications - Allergies Allergies/Adverse Reactions: Allergies Allergy/AdvReac Type Severity Reaction Status Date / Time No Known Allergies Allergy Verified 09/25/19 09:53 - Home Medications Home Medications: Ambulatory Orders Amlodipine Besylate 10 mg PO DAILY 10/13/18 Folic Acid 1 mg PO DAILY 10/13/18 Insulin Glargine,Hum.rec.anlog [Lantus] 15 unit SQ HS 10/13/18 Linaclotide [Linzess] 145 mcg PO DAILY 10/13/18 Metoprolol Tartrate 50 mg PO BID 10/13/18 Quetiapine Fumarate [Seroquel -] 25 mg PO HS 10/13/18 Simvastatin 20 mg PO HS 10/13/18 Tamsulosin HCl [Flomax] 0.4 mg PO DAILY 10/13/18 Timolol 0.5% [Timoptic] 1 drop OU DAILY 10/13/18 levETIRAcetam [Keppra -] 1,000 mg PO BID 10/13/18 Brimonidine/Dorzolamide/Pf [Brimonidine 0.15%-Dorzolam 2%] 1 drop OP TID Quetiapine Fumarate [Seroquel -] 12.5 mg PO DAILY 10/14/18 Review of Systems Unable to obtain ROS, reason: intubated and sedated Physical Examination Vital Signs: Vital Signs Temperature Pulse Rate 121 H 09/25/19 10:50 Respiratory Rate 24 H 09/25/19 10:50 Blood Pressure 98/62 09/25/19 10:50 O2 Sat by Pulse Oximetry (%) 97 09/25/19 11:39 Constitutional: Yes: Other (sedated) Eyes: Yes: Conjunctiva Clear, Other (R pupil dilated, L pupil miniml response to light) HENT: Yes: Atraumatic Cardiovascular: Yes: Tachycardia Respiratory: Yes: Regular, Mechanically Ventilated, Rhonchi Gastrointestinal: Yes: Normal Bowel Sounds, Soft Renal/: Yes: Navarro Present Musculoskeletal: Yes: Muscle Weakness Extremities: Yes: WNL Edema: Yes Edema: LLE: Trace, RLE: Trace Neurological: Yes: Tremors, Other (sedated) Labs: CBC, BMP 09/25/19 10:29 09/25/19 10:00 Imaging - Results Chest X-ray: Report Reviewed Problem List - Problems (1) Acute hypoxemic respiratory failure Assessment/Plan: -ICU consult -mechanical ventilated AC mode, TV 450, rate 16, peep 5 -CXR shows shallow inspiration, no pneumothorax or large pleural effusion, no evidence of pulmonary infiltrates or pulmonary edema -keep SpO 2>90% -ABGs Code(s): J96.01 - ACUTE RESPIRATORY FAILURE WITH HYPOXIA (2) COPD (chronic obstructive pulmonary disease) Assessment/Plan: -ICU consult -mechanical ventilated AC mode, TV 450, rate 16, peep 5 -CXR shows shallow inspiration, no pneumothorax or large pleural effusion, no evidence of pulmonary infiltrates or pulmonary edema -keep SpO 2>90% Code(s): J44.9 - CHRONIC OBSTRUCTIVE PULMONARY DISEASE, UNSPECIFIED (3) Diabetes Assessment/Plan: -[facility] A[facility] -ISS -will hold Lantus Code(s): E11.9 - TYPE 2 DIABETES MELLITUS WITHOUT COMPLICATIONS Qualifiers: Diabetes mellitus type: type 2 (4) HTN (hypertension) Assessment/Plan: -will hold BP meds, current BP on assessment 99/63 Code(s): I10 - ESSENTIAL (PRIMARY) HYPERTENSION (5) Cardiac arrest Assessment/Plan: -received 2 rounds of epi in the field and ROSC was achieved at 25min -ICU consult -Cardiology consult -Hypothermia protocol initiated -mechanically ventilated -tele monitoring -Echo ordered -troponin neg x 1 -pending Head CT scan Code(s): I46.9 - CARDIAC ARREST, CAUSE UNSPECIFIED (6) Transaminitis Assessment/Plan: -AST 186, ALT 158, Alk Phos 144 -Abdominal US Code(s): R74.0 - NONSPEC ELEV OF LEVELS OF TRANSAMNS & LACTIC ACID DEHYDRGNSE (7) Hypernatremia Assessment/Plan: -Na 151 -monitor Na level -consider renal consult if show uptrend Code(s): E87.0 - HYPEROSMOLALITY AND HYPERNATREMIA (8) Seizures Assessment/Plan: -Keppra BID -Neurology consult -neuro checks -pending Head CT -Brain MRI from 09/10 shows large mass is noted in right middle cranial fossa with medial extension along the right tentorium cerebelli compressing the right cerebral peduncle. upper brainstem, caudal extension of the mass through the the floor of the right middle cranial fossa below the base of the skull, craniocaudal dimension of mass is 5.7cm, extensive vasogenic edema n right cerebral hemisphere, mass effect on right laterval ventricle, third ventriclemild shift of the septum pellucidumto the left side Code(s): R56.9 - UNSPECIFIED CONVULSIONS (9) Lactic acidosis Assessment/Plan: -LA 8.1, repeat ordered -will monitor for downtrend Code(s): E87.2 - ACIDOSIS (10) Leucocytosis Assessment/Plan: -WBC 17.6 -ID consult -CXR shows shallow inspiration, no pneumothorax or large pleural effusion, no evidence of pulmonary infiltrates or pulmonary edema -BC -UA/CS ordered Code(s): D72.829 - ELEVATED WHITE BLOOD CELL COUNT, UNSPECIFIED Assessment/Plan see problem list dvt ppx will need GOC discussion with family
[2019-09-25] MEDS ORDERED: POTASSIUM CHLORIDE ORAL LIQUID 20 MEQ/15 ML ONE (13:32)
--- NOTE | 2019-09-25 13:41 | PN ---
Teaching Attending Note Name of Resident: Darlene Goode ATTENDING PHYSICIAN STATEMENT I saw and evaluated the patient. I reviewed the resident's note and discussed the case with the resident. I agree with the resident's findings and plan as documented. SUBJECTIVE: 79 M, meningeal neoplasm s/p radiation, DM, HTN, and HLD. Admitted via the ER due to cardiac arrest at the [facility]. Apparently eating a piece of bread when he began to choke, nursing staff performed the heimlich manuver then the patient lost a pulse. ROSC after 25 mins. PHYSICAL EXAMINATION Vital Signs - 24 hr 09/25/19 09/25/19 09/25/19 09:50 09:57 10:00 Pulse Rate 66 Pulse Rate [ 77 70 Right Radial] Respiratory 16 16 19 Rate Blood Pressure 192/76 H Blood Pressure 177/71 H 180/88 H [Left Arm] O2 Sat by Pulse 92 L 94 L Oximetry (%) 09/25/19 09/25/19 09/25/19 10:05 10:10 10:13 Pulse Rate Pulse Rate [ 137 H 129 H Right Radial] Respiratory 14 19 19 Rate Blood Pressure Blood Pressure 165/103 H 140/62 [Left Arm] O2 Sat by Pulse Oximetry (%) 09/25/19 09/25/19 09/25/19 10:15 10:17 10:20 Pulse Rate 87 Pulse Rate [ 128 H 126 H Right Radial] Respiratory 18 21 H Rate Blood Pressure Blood Pressure 133/69 104/77 [Left Arm] O2 Sat by Pulse 95 Oximetry (%) 09/25/19 09/25/19 09/25/19 10:25 10:30 10:35 Pulse Rate Pulse Rate [ 125 H 122 H 121 H Right Radial] Respiratory 25 H 28 H Rate Blood Pressure Blood Pressure 113/71 103/61 101/60 [Left Arm] O2 Sat by Pulse Oximetry (%) 09/25/19 09/25/19 09/25/19 10:40 10:45 10:50 Pulse Rate Pulse Rate [ 119 H 121 H 121 H Right Radial] Respiratory 22 H 26 H 24 H Rate Blood Pressure Blood Pressure 91/56 L 102/53 L 98/62 [Left Arm] O2 Sat by Pulse 94 L Oximetry (%) 09/25/19 11:39 Pulse Rate Pulse Rate [ Right Radial] Respiratory Rate Blood Pressure Blood Pressure [Left Arm] O2 Sat by Pulse 97 Oximetry (%) GENERAL: intubated; sedated EYES: assymmetical (R>L); non-reactive, dilated EARS, NOSE, THROAT: absent gag reflex. NECK: no JVD; no lymphadenopathyy LUNGS: vented; slight rhonchi appreciated b/l. HEART: rrr s1; s2; no murmurs/rubs/gallops ABDOMEN: Soft, NT/ND+BS in all 4 quadrants MUSCULOSKELETAL: Normal range of motion at all joints. No bony deformities or tenderness. No CVA tenderness. EXTREMITIES: warm; well-perfused 2+ pitting edema B/L NEUROLOGICAL: sedated; spontaneous jerking of extremities SKIN: Warm, dry, normal turgor, no rashes or lesions noted. Laboratory Results - last 24 hr 09/25/19 09/25/19 09/25/19 10:00 10:00 10:00 WBC RBC Hgb Hct MCV MCH MCHC RDW Plt Count MPV Absolute Neuts (auto) Neutrophils % Lymphocytes % Monocytes % Eosinophils % Basophils % Nucleated RBC % PT with INR 13.00 INR 1.10 H PTT (Actin FS) 32.5 Anticoagulation Therapy Puncture Site ABG pH ABG pCO2 at Pt Temp ABG pO2 at Pt Temp ABG HCO3 ABG O2 Sat (Measured) ABG O2 Content ABG Base Excess Ben Test Carboxyhemoglobin Methemoglobin O2 Delivery Device Oxygen Flow Rate Vent Mode Vent Rate Mechanical Rate Pressure Support Vent Sodium 151 H Potassium 3.4 L Chloride 119 H Carbon Dioxide 20 L Anion Gap 12 BUN 17.3 Creatinine 1.1 Est GFR (CKD-EPI)AfAm 74.65 Est GFR (CKD-EPI)NonAf 64.41 Random Glucose 299 H Lactic Acid 8.1 H* Calcium 8.1 L Total Bilirubin 0.4 AST 186 H ALT 158 H Alkaline Phosphatase 144 H Creatine Kinase 95 Troponin I 0.03 Total Protein 6.3 L Albumin 2.7 L 09/25/19 09/25/19 09/25/19 10:29 10:35 11:25 WBC 17.6 H RBC 5.61 H Hgb 15.9 Hct 50.6 H MCV 90.1 MCH 28.3 MCHC 31.5 L RDW 15.9 Plt Count 254 D MPV 10.1 Absolute Neuts (auto) 9.2 H Neutrophils % 52.5 D Lymphocytes % 40.3 H D Monocytes % 4.9 Eosinophils % 2.0 D Basophils % 0.3 Nucleated RBC % 0 PT with INR INR PTT (Actin FS) Anticoagulation Therapy No Result Required. Puncture Site No Result Required. ABG pH 7.27 L ABG pCO2 at Pt Temp 48.7 H ABG pO2 at Pt Temp 106 H ABG HCO3 21.3 L ABG O2 Sat (Measured) 96.2 ABG O2 Content 20.7 ABG Base Excess -5.6 L Ben Test No Result Required. Carboxyhemoglobin 0.8 Methemoglobin 1.2 O2 Delivery Device No Result Required. Oxygen Flow Rate No Result Required. No Result Required. Vent Mode No Result Required. Vent Rate No Result Required. Mechanical Rate No Result Required. Pressure Support Vent No Result Required. Sodium Potassium Chloride Carbon Dioxide Anion Gap BUN Creatinine Est GFR (CKD-EPI)AfAm Est GFR (CKD-EPI)NonAf Random Glucose Lactic Acid Calcium Total Bilirubin AST ALT Alkaline Phosphatase Creatine Kinase Troponin I Total Protein Albumin Active Medications Generic Name Dose Route Start Last Admin Trade Name Freq PRN Reason Stop Dose Admin Chlorhexidine Gluconate 1 applic 09/25/19 22:00 Hibiclens For Decolonization - TP HS BC Fentanyl 500 mcg/ Dextrose 100 mls @ 5 mls/hr 09/25/19 10:45 09/25/19 11:28 IVPB 25 mcg/hr TITR BC 5 mls/hr Administration 25 MCG/HR Propofol 100 mls @ 3.402 mls/hr 09/25/19 12:00 Diprivan - IV TITR BC Protocol 5 MCG/KG/MIN Lactated Ringer's 1,000 ml in 1,000 mls @ 100 mls/hr 09/25/19 12:00 Lactated Ringers Solution IV ASDIR BC Mupirocin 1 applic 09/25/19 22:00 Bactroban Ointment (For Decolonization) - NS 09/30/19 21:59 BID BC ASSESSMENT/PLAN: S/P CP arrest Meningioma s/p radiation DM HTN HLD AC Mode of vent TTM initiated in the ER IVF Strict I & O Follow ABG Sedation for vent synchrony Glycemic control 140 to [address] Cardoso Critical care time spent in reviewing chart, evaluating patient and formulating plan - 36 minutes.
[2019-09-25 13:42] LABS: ANISOCYTOSIS 2+; MACROCYTOSIS 0; PLATELET ESTIMATE NORMAL
[2019-09-25 14:54] LABS: EPI CELLS 10.9 /HPF (0-5/HPF); HYALINE CASTS 12 /lpf (0-8); URINE APPEARANCE CLOUDY; URINE BACTERIA 19.3 /hpf (NEGATIVE); URINE BILIRUBIN NEGATIVE (NEGATIVE); URINE COLOR YELLOW; URINE GLUCOSE (UA) 2+ (NEGATIVE); URINE KETONE NEGATIVE (NEGATIVE); URINE LEUK ESTERASE NEGATIVE (NEGATIVE); URINE NITRITE NEGATIVE (NEGATIVE); URINE PROTEIN 2+ (NEGATIVE); URINE RBC 39 /hpf (0-4); URINE WBC 6 /hpf (0-5)
--- NOTE | 2019-09-25 15:46 | PN ---
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 (short form) - Note 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: ID consult dictated imp/reccd 79 yo man [facility] brain tumor- s/p partial resection 2014 and RT, has been in [facility] for last one and a half years doing poorly there, now unable to ambulate, per son - declining- he is blind in his left eye they had appt today for f/u with the neurosurgeon s/p arrest at [facility], ?aspiration ROSC of 25 minutes intubated now cooling asked to see for leukocytosis and lactic acidosis both not unusual post cardiac arrest with prolonged down time concern for aspiration cultures have been sent will get sputum culture too zosyn for aspiration d/w ICU resident Problem List - Problems (1) Cardiac arrest Code(s): I46.9 - CARDIAC ARREST, CAUSE UNSPECIFIED (2) Aspiration pneumonia Code(s): J69.0 - PNEUMONITIS DUE TO INHALATION OF FOOD AND VOMIT (3) Transaminitis Code(s): R74.0 - NONSPEC ELEV OF LEVELS OF TRANSAMNS & LACTIC ACID DEHYDRGNSE (4) Brain tumor Code(s): D49.6 - NEOPLASM OF UNSPECIFIED BEHAVIOR OF BRAIN
--- NOTE | 2019-09-25 15:56 | ECHO ---
Name: YADIRA CASH Exam:Adult Echocardiogram Study Date: 09/25/2019 03:25 PM Age: 79 yrs Reason For Study: Cardiac arrest Doppler Measurements & Calculations MV E max dung: 35.9 cm/sec Ao V2 max: 134.3 cm/sec MV A max dung: 69.4 cm/sec Ao max P.2 mmHg MV E/A: 0.52 MV dec time: 0.18 sec LV V1 max P.6 mmHg Lat Peak E' Dung: 5.4 cm/sec LV V1 max: 80.5 cm/sec Lat E/e': 6.6 Procedure The study was technically limited with all images being suboptimal in quality. Left Ventricle Left ventricular systolic function is grossly normal. Regional wall motion abnormalities cannot be ex cluded due to limited visualization. Right Ventricle The right ventricular systolic function is grossly normal. Atria The left atrium is not well visualized. Right atrium not well visualized. Mitral Valve There is no mitral regurgitation noted. Tricuspid Valve The tricuspid valve is not well visualized. Aortic Valve The aortic valve is not well visualized. Pulmonic Valve The pulmonic valve is not well visualized. Great Vessels The aortic root is not well visualized. Pericardium/Pleura There is no pericardial effusion. Interpretation Summary The study was technically limited with all images being suboptimal in quality. Left ventricular systolic function is grossly normal. The right ventricular systolic function is grossly normal. MD Patrick Alcaraz 09/25/2019 03:56 PM
[2019-09-25] MEDS ORDERED: PIPERACILLIN/TAZOB 3.375 GM 3.375 GM in DEXTROSE 5%-WATER - 50 ML IVPB SCH (16:00)
[2019-09-25] MEDS ORDERED: hydrALAZINE HCL 20 MG/ML VIAL IVPUSH ONE (16:04)
[2019-09-25] MEDS ORDERED: PIPERACILLIN/TAZOB 3.375 GM 3.375 GM/50 ML BAG IVPB ONE ×2 (16:48→22:04)
[2019-09-25] MEDS: PIPERACILLIN/TAZOB 3.375 GM 3.375 GM in DEXTROSE 5%-WATER - 50 ML IVPB SCH ×2 (16:58→21:59)
--- NOTE | 2019-09-25 19:01 | CONS ---
DATE OF CONSULTATION: DATE OF DICTATION: 09/25/2019 INFECTIOUS DISEASE CONSULTATION HISTORY OF PRESENT ILLNESS: This is an unfortunate 79-year-old man who was admitted from the senior care status post arrest. He was eating and then apparently choked. EMS was called. His ROSC was 25 minutes. He was brought to the ER and intubated. He is now on a cooling blanket, and I am asked to see him for possible aspiration. Son is at the bedside. He notes his dad has been at the senior care for the last 1-1/2 years. He apparently brought him over her from [place] in 2014. At that time he was found to have a brain tumor. He underwent surgery and radiation therapy, and ultimately started doing poorly and was admitted to the senior care 1-1/2 years ago. Apparently the tumor is growing again and they have an appointment today to see the neurosurgeon. The patient apparently has been declining at the senior care, per the son. I am asked to see him for leukocytosis and lactic acidosis. PAST MEDICAL HISTORY: Notable for diabetes, hypertension, hyperlipidemia, along with the brain neoplasm, as well as seizure disorder, BPH and bipolar disorder. PAST SURGICAL HISTORY: The original tumor resection, which was not completely able to be removed. SOCIAL HISTORY: He resides at the senior care for the last year and a half. He is a former substance user, cigarettes and alcohol. ALLERGIES: No known drug allergies. MEDICATIONS: Include amlodipine, folic acid, insulin, Linzess, metoprolol, Seroquel, simvastatin, Flomax, Keppra. FAMILY HISTORY: Unremarkable. REVIEW OF SYSTEMS: He is intubated. PHYSICAL EXAMINATION: General: He is unresponsive, intubated. He is on a cooling blanket. He has got myoclonal twitches. Vital Signs: Temperature is 94.8. Pulse is 77, blood pressure 131/65. Respiratory rate is 28. He is on the ventilator, saturating 100%. HEENT: He is normocephalic. He is blind in his left eye. Lungs: Bilateral rhonchi. Heart: Regular rate and rhythm. Abdomen: Soft. Extremities: Cool from the cooling blanket. Neurological: He has some myoclonic jerks. Skin: No rashes noted. DIAGNOSTIC STUDIES: His white count is 17.6, hemoglobin 15.9, platelets 254. BUN 17, creatinine 1.1. Lactic acid was 8; repeat of 5.2. AST 186, ALT 158, alkaline phosphatase 144. His urinalysis is leukocyte esterase negative, with 6 white cells, does have protein and glucose. Chest x-ray shows a patchy left-sided infiltrate. SUMMARY: This is a 79-year-old man status post code, with concern for aspiration. Cultures have been sent. Will get sputum culture too. Zosyn for aspiration. Further recommendations to follow. The case was discussed with the ICU resident. MAGGIE BEDOLLA M.D. [id number]
--- NOTE | 2019-09-25 19:15 | PN ---
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 (short form) - Note 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: MRI from 08/2019 showed a large mass in the brain exerting mass effect. Given this fact, there was concern that a growing mass could be causing herniation and the patient;s current symptoms and arrest. Neurosurgery (Dr. Dover) consulted, suggests CT head to evaluate. CT head shows no interval change in mass. Discussed the case with Dr. Dover, who does not see an indication for surgical evaluation at this time. Leading diagnosis remains aspiration leading to anoxic arrest. UPDATE 2300: Patient noted to be desaturating on vent. Upon evaluation, cuff leak was discovered. ETT was changed over bougie with assistance of ED staff. Update 0000: Patient continues to desaturate despite new ETT. CXR taken post ETT exchange shows new b/l fluffy infiltrates without evidence of effusion. intitiated ARDS protocol, changing vent settings to Tv 420, RR 14, PEEP 12, 100 % Fi02. Patient saturation improved to 90's. Plateau pressure 26. Will obtain ABG and monitor.
[2019-09-25] MEDS: INSULIN SLIDING SCALE (NOVOLOG) 1 VIAL SQ SCH ×2 (21:02→22:47)
[2019-09-25] MEDS ORDERED: levETIRAcetam 500 MG TABLET (FP) PO SCH (22:00)
[2019-09-25] MEDS ORDERED: ATORVASTATIN CA 20 MG TABLET (FP) ONE (22:04)
[2019-09-25] MEDS ORDERED: levETIRAcetam 500 MG TABLET (FP) PO ONE (22:04)
[2019-09-25] MEDS ORDERED: INSULIN (NOVOLOG MIX 70/30) 100 UNITS/ML MDV SQ ONE (22:42)
[2019-09-25] MEDS: ATORVASTATIN CA 20 MG TABLET (FP) PO SCH (22:47)
[2019-09-26] MEDS ORDERED: FENTANYL INJECTION 500 MCG in DEXTROSE 5%-WATER - 90 ML IVPB SCH (00:15)
[2019-09-26] MEDS ORDERED: fentaNYL CITRATE 250 MCG/5 ML VIAL ONE (00:24)
--- NOTE | 2019-09-26 01:46 | PROC ---
Intubation - Intubation Reason for Intubation: Other (patient desatting an appeared to have air leak) Time of Intubation: 23:00 Intubation Method: orotracheal Blade used: Bougie Tube Size (cm): 7.5 Tube position @ lip (cm): 22 Tube position confirmed by: CO2 detector, Chest x-ray, Breath sounds Breath Sounds after Intubation: equal Post Intubation Xray: Yes Remarks: Patient required new ETT due to desats and potential air leak Bougie used to remove old ETT and replace larger 7.5 ETT over bougie 22cm at the lip with BL breath sounds following placement; confirmed with XR
[2019-09-26 02:46] LABS: ARTERIAL BLD GAS O2 SATURATION 94.7 % (95-98); ARTERIAL BLOOD GAS BASE EXCESS -8.1 meq/l (-2-2); ARTERIAL BLOOD GAS PO2 87.1 mmHg (80-100); ARTERIAL BLOOD GAS pH 7.25 (7.35-7.45)
[2019-09-26 02:47] LABS: ALLENS TEST POSITIVE
[2019-09-26] MEDS ORDERED: PIPERACILLIN/TAZOBACTAM 3.375 GM VIAL IVPB ONE ×4 (02:47→22:02)
[2019-09-26] MEDS ORDERED: DEXTROSE 5%-WATER - 50 ML IVPB ONE ×4 (02:48→22:02)
[2019-09-26] MEDS: PIPERACILLIN/TAZOB 3.375 GM 3.375 GM in DEXTROSE 5%-WATER - 50 ML IVPB SCH ×4 (02:54→22:22)
[2019-09-26] MEDS: MUPIROCIN 2% TOPICAL OINTMENT FOR DECOLONIZATION NS SCH ×3 (02:55→22:22)
[2019-09-26] MEDS: CHLORHEXIDINE GLUCONATE 4% CLEANSER FOR DECOLONIZATION TP SCH ×2 (02:55→22:22)
[2019-09-26] MEDS: PROPOFOL 1,000,000 MCG/100 ML VIAL IV SCH ×2 (02:56→22:23)
[2019-09-26] MEDS: INSULIN SLIDING SCALE (NOVOLOG) 1 VIAL SQ SCH ×3 (06:30→21:58)
[2019-09-26 06:46] LABS: HEMATOCRIT 49.6 % (35.4-49); HEMOGLOBIN 16.1 GM/dL (11.7-16.9); MCH 28.9 pg (25.7-33.7); MCHC 32.4 g/dl (32.0-35.9); MEAN PLT VOLUME 10.1 fl (7.5-11.1); PLATELET COUNT 187 K/MM3 (134-434); RBC 5.57 M/mm3 (4.00-5.60); RDW 15.9 % (11.9-15.9); WHITE BLOOD COUNT 11.8 K/mm3 (4.0-10.0)
--- NOTE | 2019-09-26 07:06 | PN ---
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, Physician Chief Complaint: CXR now with b/l infiltrates, L> R TnI trend FLAT, remained borderline. No sig uptrend Head CT done, no bleed. Other findings noted in report Remains intubated. PEEP 14 TELE: NSR History of Present Illness: Suspected aspiration event, hypoxic respiratory failure, cardiopulmonary arrest with prolonged recussitation. - Current Medication List Current Medications: Active Medications Atorvastatin Calcium (Lipitor -) 20 mg PO HS BC Last Admin: 09/25/19 22:47 Dose: 20 mg Chlorhexidine Gluconate (Hibiclens For Decolonization -) 1 applic TP HS BC Last Admin: 09/26/19 02:55 Dose: 1 applic Propofol (Diprivan -) 1,000,000 mcg in 100 mls @ 3.402 mls/hr IV TITR BC; Protocol Last Admin: 09/26/19 02:56 Dose: 29.39 mcg/kg/min, 20 mls/hr Lactated Ringer's (Lactated Ringers Solution) 1,000 ml in 1,000 mls @ 100 mls/ hr IV ASDIR BC Last Admin: 09/25/19 13:50 Dose: 100 mls/hr Piperacillin Sod/Tazobactam (Sod 3.375 gm/ Dextrose) 50 mls @ 100 mls/hr IVPB Q6H-IV BC; Protocol Last Admin: 09/26/19 02:54 Dose: 100 mls/hr Insulin Aspart (Novolog Vial Sliding Scale -) 1 vial SQ ACHS BC; Protocol Last Admin: 09/26/19 06:30 Dose: 8 unit Levetiracetam (Keppra -) 1,000 mg PO BID BC Last Admin: 09/25/19 22:47 Dose: 1,000 mg Mupirocin (Bactroban Ointment (For Decolonization) -) 1 applic NS BID BC Stop: 09/30/19 21:59 Last Admin: 09/26/19 02:55 Dose: 1 applic Timolol Maleate (Timoptic 0.5%) 1 drop OU DAILY BC - Objective Vital Signs: Vital Signs Temperature 96.9 F L 09/26/19 06:48 Pulse Rate 96 H 09/26/19 06:48 Respiratory Rate 32 H 09/26/19 06:48 Blood Pressure 99/61 09/26/19 06:48 O2 Sat by Pulse Oximetry (%) 96 09/26/19 03:14 Constitutional: Yes: Other (intubated, sedated.) Cardiovascular: Yes: Regular Rate and Rhythm Respiratory: Yes: Rhonchi, Other (= breath sounds b/l) Gastrointestinal: Yes: Soft Edema: No Labs: CBC, BMP 09/26/19 05:50 INR, PTT INR 1.10 (0.83-1.09) H 09/25/19 10:00 Microbiology Laboratory Tests 09/25/19 09/25/19 09/26/19 14:49 20:25 02:25 WBC Hgb Plt Count ABG pH 7.25 L ABG pCO2 at Pt Temp 45.0 ABG pO2 at Pt Temp 87.1 Oxygen Flow Rate 100% Sodium Potassium Creatinine Random Glucose AST ALT Creatine Kinase 464 H 1231 H Troponin I 0.58 H 0.59 H 09/26/19 09/26/19 05:50 05:50 WBC 11.8 H Hgb 16.1 Plt Count 187 D ABG pH ABG pCO2 at Pt Temp ABG pO2 at Pt Temp Oxygen Flow Rate Sodium 149 H Potassium 3.7 Creatinine 1.3 Random Glucose 406 H* AST 75 H ALT 115 H Creatine Kinase Troponin I - ....Imaging X-ray: Image Reviewed EKG: Image Reviewed Assessment/Plan IMP: Acute respiratory failure secondary to suspected aspiration event with cardiopulmonary arrest in setting of above (reported PEA arrest, likely due to hypoxia) Probable aspiration PNA, Xray now appears to show b/l infiltrates (left>> right) Shock liver secondary to cardiopulmonary arrest Hypernatremia Abnormal ECG Equivocal/borderline TnI with flat trend, unlikely representing primary AR. Most likely secondary to demand ischemia in setting of prolonged cardiopulm recussitation vs myocardial necrosis from sepsis REC: 1. ICU with tele monitoring, cooling protocol as per Critical Care Team. 2. Vent support, vent management as per Critical Care. 3. F/u cultures, choice of abx for possible aspiration as per Critical Care team and ID 4. Free water repletion. 5. Currently not requiring pressors. 6. Echo showed grossly normal biV fxn 7. Head CT with no evidence of ICH 8. Grossly normal LVEF with flat/equivocal TnI trend unlikely from type I AR. More likely due to demand ischemia in setting of prolonged recussitation vs myocardial necrosis from sepsis.
[2019-09-26 07:08] LABS: ALBUMIN 2.6 g/dl (3.4-5.0); BLOOD UREA NITROGEN 26.8 mg/dL (7-18); CALCIUM 8.5 mg/dL (8.5-10.1); CREATININE 1.3 mg/dL (0.55-1.3); MAGNESIUM 2.2 mg/dL (1.8-2.4); PHOSPHOROUS 3.8 mg/dL (2.5-4.9); POTASSIUM 3.7 mmol/L (3.5-5.1); TOT PROT 5.7 g/dl (6.4-8.2)
[2019-09-26] MEDS ORDERED: INSULIN REGULAR 100 UNITS in SODIUM CHLORIDE 99 ML IVPB SCH (07:30)
--- NOTE | 2019-09-26 08:05 | PN ---
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, Physician - Current Medication List Current Medications: Active Medications Atorvastatin Calcium (Lipitor -) 20 mg PO HS BC Last Admin: 09/25/19 22:47 Dose: 20 mg Chlorhexidine Gluconate (Hibiclens For Decolonization -) 1 applic TP HS BC Last Admin: 09/26/19 02:55 Dose: 1 applic Propofol (Diprivan -) 1,000,000 mcg in 100 mls @ 3.402 mls/hr IV TITR BC; Protocol Last Admin: 09/26/19 02:56 Dose: 29.39 mcg/kg/min, 20 mls/hr Lactated Ringer's (Lactated Ringers Solution) 1,000 ml in 1,000 mls @ 100 mls/ hr IV ASDIR BC Last Admin: 09/25/19 13:50 Dose: 100 mls/hr Piperacillin Sod/Tazobactam (Sod 3.375 gm/ Dextrose) 50 mls @ 100 mls/hr IVPB Q6H-IV BC; Protocol Last Admin: 09/26/19 02:54 Dose: 100 mls/hr Insulin Human Regular 100 (units/ Sodium Chloride) 100 mls @ 147.8 mls/hr IVPB TITR BC; Protocol Potassium Chloride (Potassium Chloride 10 Meq Premix Ivpb -) 10 meq in 100 mls @ 100 mls/hr IVPB Q60M BC Stop: 09/26/19 10:44 Insulin Aspart (Novolog Vial Sliding Scale -) 1 vial SQ ACHS BC; Protocol Last Admin: 09/26/19 06:30 Dose: 8 unit Levetiracetam (Keppra -) 1,000 mg PO BID BC Last Admin: 09/25/19 22:47 Dose: 1,000 mg Mupirocin (Bactroban Ointment (For Decolonization) -) 1 applic NS BID BC Stop: 09/30/19 21:59 Last Admin: 09/26/19 02:55 Dose: 1 applic Timolol Maleate (Timoptic 0.5%) 1 drop OU DAILY [facility] - Objective Vital Signs: Vital Signs Temperature 96.9 F L 09/26/19 06:48 Pulse Rate 96 H 09/26/19 06:48 Respiratory Rate 32 H 09/26/19 06:48 Blood Pressure 99/61 09/26/19 06:48 O2 Sat by Pulse Oximetry (%) 96 09/26/19 03:14 Cardiovascular: Yes: S1, S2 Respiratory: Yes: Mechanically Ventilated Gastrointestinal: Yes: Normal Bowel Sounds, Soft Labs: CBC, BMP 09/26/19 05:50 09/26/19 05:50 INR, PTT INR 1.10 (0.83-1.09) H 09/25/19 10:00 Assessment/Plan Problems (1) Acute hypoxemic respiratory failure Assessment/Plan: -ICU -mechanical ventilated AC mode, TV 450, rate 16, peep 5 -CXR shows shallow inspiration, no pneumothorax or large pleural effusion, no evidence of pulmonary infiltrates or pulmonary edema -keep SpO 2>90% -ABGs Code(s): J96.01 - ACUTE RESPIRATORY FAILURE WITH HYPOXIA (2) COPD (chronic obstructive pulmonary disease) Assessment/Plan: -ICU CARE -mechanical ventilated AC mode, TV 450, rate 16, peep 5 -CXR shows shallow inspiration, no pneumothorax or large pleural effusion, no evidence of pulmonary infiltrates or pulmonary edema -keep SpO 2>90% Code(s): J44.9 - CHRONIC OBSTRUCTIVE PULMONARY DISEASE, UNSPECIFIED (3) Diabetes Assessment/Plan: -[facility] ACHS -ISS -will hold Lantus Code(s): E11.9 - TYPE 2 DIABETES MELLITUS WITHOUT COMPLICATIONS Qualifiers: Diabetes mellitus type: type 2 (4) HTN (hypertension) Assessment/Plan: -will hold BP meds, current BP on assessment 99/ Code(s): I10 - ESSENTIAL (PRIMARY) HYPERTENSION (5) Cardiac arrest Assessment/Plan: -received 2 rounds of epi in the field and ROSC was achieved at 25min -ICU -Cardiology consult -Hypothermia protocol initiated -mechanically ventilated -tele monitoring -Echo ordered -troponin neg x 1 -pending Head CT scan Code(s): I46.9 - CARDIAC ARREST, CAUSE UNSPECIFIED (6) Transaminitis Assessment/Plan: -AST 186, ALT 158, Alk Phos 144 -Abdominal US Code(s): R74.0 - NONSPEC ELEV OF LEVELS OF TRANSAMNS & LACTIC ACID DEHYDRGNSE (7) Hypernatremia Assessment/Plan: -Na 151 -monitor Na level -consider renal consult if show uptrend Code(s): E87.0 - HYPEROSMOLALITY AND HYPERNATREMIA (8) Seizures Assessment/Plan: -Keppra BID -Neurology consult -neuro checks -pending Head CT -Brain MRI from 09/10 shows large mass is noted in right middle cranial fossa with medial extension along the right tentorium cerebelli compressing the right cerebral peduncle. upper brainstem, caudal extension of the mass through the the floor of the right middle cranial fossa below the base of the skull, craniocaudal dimension of mass is 5.7cm, extensive vasogenic edema n right cerebral hemisphere, mass effect on right laterval ventricle, third ventriclemild shift of the septum pellucidumto the left side Code(s): R56.9 - UNSPECIFIED CONVULSIONS (9) Lactic acidosis Assessment/Plan: -LA 8.1, repeat ordered -will monitor for downtrend Code(s): E87.2 - ACIDOSIS (10) Leucocytosis Assessment/Plan: -WBC 17.6 -ID consult -CXR shows shallow inspiration, no pneumothorax or large pleural effusion, no evidence of pulmonary infiltrates or pulmonary edema -BC -UA/CS ordered Code(s): D72.829 - ELEVATED WHITE BLOOD CELL COUNT, UNSPECIFIED
[2019-09-26] MEDS ORDERED: SODIUM CHLORIDE 1,000 ML IV SCH (08:30)
[2019-09-26] MEDS: KCL 10 MEQ IVPB 10 MEQ/100 ML INFUS.BAG IVPB SCH ×3 (09:00→10:54)
--- NOTE | 2019-09-26 09:37 | CONSULT ---
Consult - text type - Consultation Consultation Note: Neurology Chief Complaint: Cardiac Arrest History Source: Medical Record Limitations to Obtaining History: Clinical Condition History of Present Illness: Patient is a 79 y/o male with past medical history of COPD HTN, DM from [facility]. Patient is s/p cardiac arrest. As per EMS patient was eating a piece of bread when he began to choke. Staff at [facility] performed Heimlich manuver and patient lost pulse and CPR was initiated and continued by EMS. Patient received 2 rounds of epi in the field and ROSC was achieved at 25min. Patient is currently intubated and sedated, history received from chart. Head CT performed and showed no evidence of hemorrhage. A very large mass lesion without interval change from prior MRI of 09/09/2019. However, has increased in size in comparison with CT of 10/13/18 with increased associated bone erosion. Was contacted by nurse practitioner on patient's arrival and discussed case. There was concern this patient reportedly was having jerking activity on her presentation and I informed this practitioner that this is likely myoclonic jerks due to underlying anoxic brain injury. We'll order a repeat CT to reevaluate ace-white differentiation, cerebral edema. Possibly poor prognosis, goal of care to be determined. Consider Mannitol if extensive cerebral edema were to be noted on imaging. Patient was started on Keppra for seizure prevention. Patient currently in ICU under critical care monitoring and is on sedation. Did have some minimal pupillary response to light reflex but no gag and minimal corneal reflex, is overbreathing vent and does not meet criteria for brain at this time . - Past Medical History [employer]: Yes: Seizure Cardiovascular: Yes: HTN, Hyperlipdemia Renal/: Yes: BPH Heme/Onc: Yes: Cancer (benign neoplasm of spinal meninges. ) Psych: Yes: Bipolar Endocrine: Yes: Diabetes Mellitus - Family History HTN -Smoking History Smoking history: Unknown if ever smoked Have you smoked in the past 12 months: No - Alcohol/Substance Use Hx Alcohol Use: No - Social History Usual Living Arrangement: Yes: Custodial ADL: Support Services History of Recent Travel: No Review of Systems Unable to obtain ROS, reason: intubated and sedated Home Medications - Allergies Allergies/Adverse Reactions: Allergies Allergy/AdvReac Type Severity Reaction Status Date / Time No Known Allergies Allergy Verified 09/25/19 09:53 - Home Medications Home Medications: Ambulatory Orders Amlodipine Besylate 10 mg PO DAILY 10/13/18 Folic Acid 1 mg PO DAILY 10/13/18 Insulin Glargine,Hum.rec.anlog [Lantus] 15 unit SQ HS 10/13/18 Linaclotide [Linzess] 145 mcg PO DAILY 10/13/18 Metoprolol Tartrate 50 mg PO BID 10/13/18 Quetiapine Fumarate [Seroquel -] 25 mg PO HS 10/13/18 Simvastatin 20 mg PO HS 10/13/18 Tamsulosin HCl [Flomax] 0.4 mg PO DAILY 10/13/18 Timolol 0.5% [Timoptic] 1 drop OU DAILY 10/13/18 levETIRAcetam [Keppra -] 1,000 mg PO BID 10/13/18 Brimonidine/Dorzolamide/Pf [Brimonidine 0.15%-Dorzolam 2%] 1 drop OP TID Quetiapine Fumarate [Seroquel -] 12.5 mg PO DAILY 10/14/18 Active Medications Atorvastatin Calcium (Lipitor -) 20 mg PO HS [facility] Last Admin: 09/25/19 22:47 Dose: 20 mg Chlorhexidine Gluconate (Hibiclens For Decolonization -) 1 applic TP HS [facility] Last Admin: 09/26/19 02:55 Dose: 1 applic Propofol (Diprivan -) 1,000,000 mcg in 100 mls @ 3.402 mls/hr IV TITR BC; Protocol Last Admin: 09/26/19 02:56 Dose: 29.39 mcg/kg/min, 20 mls/hr Piperacillin Sod/Tazobactam (Sod 3.375 gm/ Dextrose) 50 mls @ 100 mls/hr IVPB Q6H-IV BC; Protocol Last Admin: 09/26/19 02:54 Dose: 100 mls/hr Insulin Human Regular 100 (units/ Sodium Chloride) 100 mls @ 147.8 mls/hr IVPB TITR BC; Protocol Potassium Chloride (Potassium Chloride 10 Meq Premix Ivpb -) 10 meq in 100 mls @ 100 mls/hr IVPB Q60M BC Stop: 09/26/19 10:44 Lactated Ringer's (Lactated Ringers Solution) 1,000 ml in 1,000 mls @ 75 mls/ hr IV ASDIR BC Insulin Aspart (Novolog Vial Sliding Scale -) 1 vial SQ ACHS BC; Protocol Last Admin: 09/26/19 06:30 Dose: 8 unit Levetiracetam (Keppra Injection -) 500 mg IVPB BID BC Mupirocin (Bactroban Ointment (For Decolonization) -) 1 applic NS BID BC Stop: 09/30/19 21:59 Last Admin: 09/26/19 02:55 Dose: 1 applic Pantoprazole Sodium (Protonix Iv) 40 mg IVPUSH BID BC Timolol Maleate (Timoptic 0.5%) 1 drop OU DAILY BC Physical Examination Vital Signs: Vital Signs Period Temp Pulse Resp BP Sys/Louie Pulse Ox Last 24 Hr 88.2 F-98.3 F 65-137 14-35 66-192/44-117 86-100 Constitutional: Yes: Other (sedated) Eyes: Yes: Conjunctiva Clear, Other (R pupil dilated, L pupil miniml response to light) HENT: Yes: Atraumatic Cardiovascular: Yes: Tachycardia Respiratory: Yes: Regular, Mechanically Ventilated, Rhonchi Gastrointestinal: Yes: Normal Bowel Sounds, Soft Renal/: Yes: Navarro Present Musculoskeletal: Yes: Muscle Weakness Extremities: Yes: WNL Edema: Yes Edema: LLE: Trace, RLE: Trace Neurological: no significant abnormal movements noted, pupil with minimal response to light, minimal corneal, no gag reflex, overbreathing vent Labs: CBCD WBC 11.8 K/mm3 (4.0-10.0) H 09/26/19 05:50 RBC 5.57 M/mm3 (4.00-5.60) 09/26/19 05:50 Hgb 16.1 GM/dL (11.7-16.9) 09/26/19 05:50 Hct 49.6 % (35.4-49) H 09/26/19 05:50 MCV 89.0 fl (80-96) 09/26/19 05:50 MCHC 32.4 g/dl (32.0-35.9) 09/26/19 05:50 RDW 15.9 % (11.9-15.9) 09/26/19 05:50 Plt Count 187 K/MM3 (134-434) D 09/26/19 05:50 MPV 10.1 fl (7.5-11.1) 09/26/19 05:50 CMP Sodium 149 mmol/L (136-145) H 09/26/19 05:50 Potassium 3.7 mmol/L (3.5-5.1) 09/26/19 05:50 Chloride 119 mmol/L (98-107) H 09/26/19 05:50 Carbon Dioxide 19 mmol/L (21-32) L 09/26/19 05:50 Anion Gap 12 MMOL/L (8-16) 09/26/19 05:50 BUN 26.8 mg/dL (7-18) H 09/26/19 05:50 Creatinine 1.3 mg/dL (0.55-1.3) 09/26/19 05:50 Random Glucose 406 mg/dL (74-106) H* 09/26/19 05:50 Calcium 8.5 mg/dL (8.5-10.1) 09/26/19 05:50 Total Bilirubin 2.0 mg/dL (0.2-1) H 09/26/19 05:50 AST 75 U/L (15-37) H 09/26/19 05:50 ALT 115 U/L (13-61) H 09/26/19 05:50 Alkaline Phosphatase 107 U/L (45-117) 09/26/19 05:50 Total Protein 5.7 g/dl (6.4-8.2) L 09/26/19 05:50 Albumin 2.6 g/dl (3.4-5.0) L 09/26/19 05:50 CARDIAC ENZYMES Creatine Kinase 1231 U/L (26-308) H 09/25/19 20:25 Troponin I 0.59 ng/ml (0.00-0.05) H 09/25/19 20:25 Assessment/Plan Patient is a 79 y/o male with past medical history of COPD HTN, DM from [facility]. Patient is s/p cardiac arrest. As per EMS patient was eating a piece of bread when he began to choke. Staff at [facility] performed Heimlich manuver and patient lost pulse and CPR was initiated and continued by EMS. Patient received 2 rounds of epi in the field and ROSC was achieved at 25min. Patient is currently intubated and sedated, history received from chart. Head CT performed and showed no evidence of hemorrhage. A very large mass lesion without interval change from prior MRI of 09/09/2019. However, has increased in size in comparison with CT of 10/13/18 with increased associated bone erosion. Was contacted by nurse practitioner on patient's arrival and discussed case. There was concern this patient reportedly was having jerking activity on her presentation and I informed this practitioner that this is likely myoclonic jerks due to underlying anoxic brain injury. We'll order a repeat CT to reevaluate ace-white differentiation, cerebral edema. Possibly poor prognosis, goal of care to be determined. Consider Mannitol if extensive cerebral edema were to be noted on imaging. Patient was started on Keppra for seizure prevention. Patient currently in ICU under critical care monitoring and is on sedation. Did have some minimal pupillary response to light reflex but no gag and minimal corneal reflex, is overbreathing vent and does not meet criteria for brain at this time. Critical care time 40 mins
[2019-09-26] MEDS: LACTATED RINGERS SOLUTION 1,000 ML/1,000 ML INFUS.BAG IV SCH (10:00)
[2019-09-26] MEDS ORDERED: levETIRAcetam 500 MG/5 ML INJECTION VIAL IVPB ONE (10:00)
[2019-09-26] MEDS ORDERED: levETIRAcetam 500 MG/5 ML INJECTION VIAL IVPB SCH (10:00)
--- NOTE | 2019-09-26 10:06 | PN ---
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 (short form) - Note 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: on cooling blanket after arrest Vital Signs Period Temp Pulse Resp BP Sys/Louie Pulse Ox Last 24 Hr 88.2 F-98.3 F 65-137 14-35 66-165/44-117 86-100 cor-rrr lungs decreased bs at bases abd soft ext no edema CBC, BMP 09/26/19 05:50 09/26/19 05:50 Microbiology 09/25/19 14:37 Urine - Urine Navarro Urine Culture - Final NO GROWTH OBTAINED head ct +mass cxray bilateral infiltrates imp/reccd s/p arrest intubated witness aspiration continue zosyn for aspiration abnl lfts probably secondary to code f/u cultures Problem List - Problems (1) Cardiac arrest Code(s): I46.9 - CARDIAC ARREST, CAUSE UNSPECIFIED (2) Aspiration pneumonia Code(s): J69.0 - PNEUMONITIS DUE TO INHALATION OF FOOD AND VOMIT (3) Transaminitis Code(s): R74.0 - NONSPEC ELEV OF LEVELS OF TRANSAMNS & LACTIC ACID DEHYDRGNSE
[2019-09-26] MEDS: PANTOPRAZOLE SODIUM 40 MG VIAL IVPUSH SCH ×2 (10:15→22:23)
[2019-09-26] MEDS: levETIRAcetam 500 MG/5 ML INJECTION VIAL IVPB SCH ×2 (10:54→22:23)
[2019-09-26] MEDS: TIMOLOL 0.5% OPHTHALMIC SOL 5 ML BOTTLE OU SCH (11:38)
--- NOTE | 2019-09-26 12:01 | PN ---
Teaching Attending Note Name of Resident: Mel Banks ATTENDING PHYSICIAN STATEMENT I saw and evaluated the patient. I reviewed the resident's note and discussed the case with the resident. I agree with the resident's findings and plan as documented. SUBJECTIVE: Patient seen and examined in the ICU. Remains intubated and sedated. AC Mode of vent, 70% FiO2. No pressors, but hemodynamics are marginal. Intake & Output 09/23/19 09/24/19 09/25/19 09/26/19 23:59 23:59 23:59 23:59 Intake Total 2148 Output Total 350 Balance 1798 Weight 250 lb 93 lb 1.6 oz Last Vital Signs Temp Pulse Resp BP Pulse Ox 91.2 F L 67 29 H 91/52 L 96 09/26/19 11:10 09/26/19 11:10 09/26/19 11:10 09/26/19 11:10 09/26/19 03:14 Active Medications Atorvastatin Calcium (Lipitor -) 20 mg PO HS BC Last Admin: 09/25/19 22:47 Dose: 20 mg Chlorhexidine Gluconate (Hibiclens For Decolonization -) 1 applic TP HS BC Last Admin: 09/26/19 02:55 Dose: 1 applic Propofol (Diprivan -) 1,000,000 mcg in 100 mls @ 3.402 mls/hr IV TITR BC; Protocol Last Admin: 09/26/19 02:56 Dose: 29.39 mcg/kg/min, 20 mls/hr Piperacillin Sod/Tazobactam (Sod 3.375 gm/ Dextrose) 50 mls @ 100 mls/hr IVPB Q6H-IV BC; Protocol Last Admin: 09/26/19 09:00 Dose: 100 mls/hr Insulin Human Regular 100 (units/ Sodium Chloride) 100 mls @ 147.8 mls/hr IVPB TITR BC; Protocol Last Titration: 09/26/19 11:00 Dose: 0.17 units/kg/hr, 7.5 mls/hr Lactated Ringer's (Lactated Ringers Solution) 1,000 ml in 1,000 mls @ 75 mls/ hr IV ASDIR BC Last Admin: 09/26/19 10:00 Dose: 75 mls/hr Insulin Aspart (Novolog Vial Sliding Scale -) 1 vial SQ ACHS BC; Protocol Last Admin: 09/26/19 11:38 Dose: Not Given Levetiracetam (Keppra Injection -) 500 mg IVPB BID [facility] Last Admin: 09/26/19 10:54 Dose: 500 mg Mupirocin (Bactroban Ointment (For Decolonization) -) 1 applic NS BID [facility] Stop: 09/30/19 21:59 Last Admin: 09/26/19 11:37 Dose: 1 applic Pantoprazole Sodium (Protonix Iv) 40 mg IVPUSH BID [facility] Last Admin: 09/26/19 10:15 Dose: 40 mg Timolol Maleate (Timoptic 0.5%) 1 drop OU DAILY [facility] Last Admin: 09/26/19 11:38 Dose: Not Given GENERAL: intubated; sedated EYES: assymmetic (R>L); non-reactive, dilated EARS, NOSE, THROAT: absent gag reflex. NECK: no JVD; no lymphadenopathyy LUNGS: vented; slight rhonchi appreciated b/l. HEART: rrr s1; s2; no murmurs/rubs/gallops ABDOMEN: Soft, NT/ND+BS in all 4 quadrants MUSCULOSKELETAL: Normal range of motion at all joints. No bony deformities or tenderness. No CVA tenderness. EXTREMITIES: warm; well-perfused 2+ pitting edema B/L NEUROLOGICAL: sedated; spontaneous jerking of extremities SKIN: Warm, dry, normal turgor, no rashes or lesions noted. Laboratory Results - last 24 hr 09/25/19 09/25/19 09/25/19 10:29 11:25 14:13 WBC RBC Hgb Hct MCV MCH MCHC RDW Plt Count MPV Neutrophils % (Manual) 48.5 D Band Neutrophils % 0.0 Lymphocytes % (Manual) 3.9 L Monocytes % (Manual) 3 L Eosinophils % (Manual) 1.0 Basophils % (Manual) 0.0 Myelocytes % (Man) 0 Promyelocytes % (Man) 1 Blast Cells % (Manual) 0 Nucleated RBC % 0 Metamyelocytes 11 H Hypochromia 0 Platelet Estimate Normal Platelet Comment Present Polychromasia 0 Poikilocytosis 1+ Anisocytosis 2+ Microcytosis 1+ Macrocytosis 0 Spherocytes 1+ Anticoagulation Therapy Puncture Site Left radial ABG pH 7.26 L ABG pCO2 at Pt Temp 50.1 H ABG pO2 at Pt Temp 78.8 L ABG HCO3 21.9 L ABG O2 Sat (Measured) 92.6 L ABG O2 Content 19.7 ABG Base Excess -5.2 L Ben Test Positive Carboxyhemoglobin 0.9 Methemoglobin 1.2 O2 Delivery Device Oxygen Flow Rate Yes Vent Mode Vent Rate Mechanical Rate PEEP 5.0 Pressure Support Vent Sodium Potassium Chloride Carbon Dioxide Anion Gap BUN Creatinine Est GFR (CKD-EPI)AfAm Est GFR (CKD-EPI)NonAf POC Glucometer Random Glucose Lactic Acid 5.2 H* Calcium Phosphorus Magnesium Total Bilirubin AST ALT Alkaline Phosphatase Creatine Kinase Creatine Kinase Index CK-MB (CK-2) Troponin I Total Protein Albumin Urine Color Urine Appearance Urine pH Ur Specific [place] Urine Protein Urine Glucose (UA) Urine Ketones Urine Blood Urine Nitrite Urine Bilirubin Urine Urobilinogen Ur Leukocyte Esterase Urine WBC (Auto) Urine RBC (Auto) Urine Casts (Auto) U Pathogenic Cast Auto U Epithel Cells (Auto) U Sm Round Cell (Auto) Urine Bacteria (Auto) Blood Type Antibody Screen 09/25/19 09/25/19 09/25/19 14:37 14:49 14:50 WBC RBC Hgb Hct MCV MCH MCHC RDW Plt Count MPV Neutrophils % (Manual) Band Neutrophils % Lymphocytes % (Manual) Monocytes % (Manual) Eosinophils % (Manual) Basophils % (Manual) Myelocytes % (Man) Promyelocytes % (Man) Blast Cells % (Manual) Nucleated RBC % Metamyelocytes Hypochromia Platelet Estimate Platelet Comment Polychromasia Poikilocytosis Anisocytosis Microcytosis Macrocytosis Spherocytes Anticoagulation Therapy Puncture Site ABG pH ABG pCO2 at Pt Temp ABG pO2 at Pt Temp ABG HCO3 ABG O2 Sat (Measured) ABG O2 Content ABG Base Excess Ben Test Carboxyhemoglobin Methemoglobin O2 Delivery Device Oxygen Flow Rate Vent Mode Vent Rate Mechanical Rate PEEP Pressure Support Vent Sodium Potassium Chloride Carbon Dioxide Anion Gap BUN Creatinine Est GFR (CKD-EPI)AfAm Est GFR (CKD-EPI)NonAf POC Glucometer Random Glucose Lactic Acid Calcium Phosphorus Magnesium Total Bilirubin AST ALT Alkaline Phosphatase Creatine Kinase 464 H Creatine Kinase Index 2.3 CK-MB (CK-2) 11.0 H Troponin I 0.58 H Total Protein Albumin Urine Color Yellow Urine Appearance Cloudy Urine pH 6.0 Ur Specific [place] 1.017 Urine Protein 2+ H Urine Glucose (UA) 2+ H Urine Ketones Negative Urine Blood 2+ H Urine Nitrite Negative Urine Bilirubin Negative Urine Urobilinogen 1.0 Ur Leukocyte Esterase Negative Urine WBC (Auto) 6 Urine RBC (Auto) 39 Urine Casts (Auto) 12 U Pathogenic Cast Auto 12 U Epithel Cells (Auto) 10.9 U Sm Round Cell (Auto) Non seen Urine Bacteria (Auto) 19.3 Blood Type A POSITIVE Antibody Screen Negative 09/25/19 09/25/19 09/25/19 18:51 20:25 22:37 WBC RBC Hgb Hct MCV MCH MCHC RDW Plt Count MPV Neutrophils % (Manual) Band Neutrophils % Lymphocytes % (Manual) Monocytes % (Manual) Eosinophils % (Manual) Basophils % (Manual) Myelocytes % (Man) Promyelocytes % (Man) Blast Cells % (Manual) Nucleated RBC % Metamyelocytes Hypochromia Platelet Estimate Platelet Comment Polychromasia Poikilocytosis Anisocytosis Microcytosis Macrocytosis Spherocytes Anticoagulation Therapy Puncture Site ABG pH ABG pCO2 at Pt Temp ABG pO2 at Pt Temp ABG HCO3 ABG O2 Sat (Measured) ABG O2 Content ABG Base Excess Ben Test Carboxyhemoglobin Methemoglobin O2 Delivery Device Oxygen Flow Rate Vent Mode Vent Rate Mechanical Rate PEEP Pressure Support Vent Sodium Potassium Chloride Carbon Dioxide Anion Gap BUN Creatinine Est GFR (CKD-EPI)AfAm Est GFR (CKD-EPI)NonAf POC Glucometer 294 387 Random Glucose Lactic Acid Calcium Phosphorus Magnesium Total Bilirubin AST ALT Alkaline Phosphatase Creatine Kinase 1231 H Creatine Kinase Index 2.1 CK-MB (CK-2) 27.0 H Troponin I 0.59 H Total Protein Albumin Urine Color Urine Appearance Urine pH Ur Specific [place] Urine Protein Urine Glucose (UA) Urine Ketones Urine Blood Urine Nitrite Urine Bilirubin Urine Urobilinogen Ur Leukocyte Esterase Urine WBC (Auto) Urine RBC (Auto) Urine Casts (Auto) U Pathogenic Cast Auto U Epithel Cells (Auto) U Sm Round Cell (Auto) Urine Bacteria (Auto) Blood Type Antibody Screen 09/26/19 09/26/19 09/26/19 02:25 05:50 05:50 WBC 11.8 H RBC 5.57 Hgb 16.1 Hct 49.6 H MCV 89.0 MCH 28.9 MCHC 32.4 RDW 15.9 Plt Count 187 D MPV 10.1 Neutrophils % (Manual) Band Neutrophils % Lymphocytes % (Manual) Monocytes % (Manual) Eosinophils % (Manual) Basophils % (Manual) Myelocytes % (Man) Promyelocytes % (Man) Blast Cells % (Manual) Nucleated RBC % Metamyelocytes Hypochromia Platelet Estimate Platelet Comment Polychromasia Poikilocytosis Anisocytosis Microcytosis Macrocytosis Spherocytes Anticoagulation Therapy No Result Required. Puncture Site Right radial ABG pH 7.25 L ABG pCO2 at Pt Temp 45.0 ABG pO2 at Pt Temp 87.1 ABG HCO3 18.9 L ABG O2 Sat (Measured) 94.7 L ABG O2 Content 21.9 ABG Base Excess -8.1 L Ben Test Positive Carboxyhemoglobin Methemoglobin O2 Delivery Device Vent Oxygen Flow Rate 100% Vent Mode A/c Vent Rate 14 Mechanical Rate No Result Required. PEEP 14.0 Pressure Support Vent 420 Sodium 149 H Potassium 3.7 Chloride 119 H Carbon Dioxide 19 L Anion Gap 12 BUN 26.8 H Creatinine 1.3 Est GFR (CKD-EPI)AfAm 61.00 Est GFR (CKD-EPI)NonAf 52.63 POC Glucometer Random Glucose 406 H* Lactic Acid Calcium 8.5 Phosphorus 3.8 Magnesium 2.2 Total Bilirubin 2.0 H AST 75 H ALT 115 H Alkaline Phosphatase 107 Creatine Kinase Creatine Kinase Index CK-MB (CK-2) Troponin I 0.27 H Total Protein 5.7 L Albumin 2.6 L Urine Color Urine Appearance Urine pH Ur Specific [place] Urine Protein Urine Glucose (UA) Urine Ketones Urine Blood Urine Nitrite Urine Bilirubin Urine Urobilinogen Ur Leukocyte Esterase Urine WBC (Auto) Urine RBC (Auto) Urine Casts (Auto) U Pathogenic Cast Auto U Epithel Cells (Auto) U Sm Round Cell (Auto) Urine Bacteria (Auto) Blood Type Antibody Screen 09/26/19 09/26/19 09/26/19 06:09 09:50 11:22 WBC RBC Hgb Hct MCV MCH MCHC RDW Plt Count MPV Neutrophils % (Manual) Band Neutrophils % Lymphocytes % (Manual) Monocytes % (Manual) Eosinophils % (Manual) Basophils % (Manual) Myelocytes % (Man) Promyelocytes % (Man) Blast Cells % (Manual) Nucleated RBC % Metamyelocytes Hypochromia Platelet Estimate Platelet Comment Polychromasia Poikilocytosis Anisocytosis Microcytosis Macrocytosis Spherocytes Anticoagulation Therapy Puncture Site ABG pH ABG pCO2 at Pt Temp ABG pO2 at Pt Temp ABG HCO3 ABG O2 Sat (Measured) ABG O2 Content ABG Base Excess Ben Test Carboxyhemoglobin Methemoglobin O2 Delivery Device Oxygen Flow Rate Vent Mode Vent Rate Mechanical Rate PEEP Pressure Support Vent Sodium Potassium Chloride Carbon Dioxide Anion Gap BUN Creatinine Est GFR (CKD-EPI)AfAm Est GFR (CKD-EPI)NonAf POC Glucometer 312 374 315 Random Glucose Lactic Acid Calcium Phosphorus Magnesium Total Bilirubin AST ALT Alkaline Phosphatase Creatine Kinase Creatine Kinase Index CK-MB (CK-2) Troponin I Total Protein Albumin Urine Color Urine Appearance Urine pH Ur Specific [place] Urine Protein Urine Glucose (UA) Urine Ketones Urine Blood Urine Nitrite Urine Bilirubin Urine Urobilinogen Ur Leukocyte Esterase Urine WBC (Auto) Urine RBC (Auto) Urine Casts (Auto) U Pathogenic Cast Auto U Epithel Cells (Auto) U Sm Round Cell (Auto) Urine Bacteria (Auto) Blood Type Antibody Screen ASSESSMENT/PLAN: S/P CP arrest Meningioma s/p radiation DM HTN HLD R/O Sepsis AC Mode of vent TTM initiated in the ER IVF Strict I & O Sedation for vent synchrony Glycemic control 140 to 180 Will need central access Requires ICU monitoring Dr Cardoso Critical care time spent in reviewing chart, evaluating patient and formulating plan - 36 minutes.
--- NOTE | 2019-09-26 12:15 | EKG ---
Test Reason : Blood Pressure : / mmHG Vent. Rate : 081 BPM Atrial Rate : 081 BPM P-R Int : 162 ms QRS Dur : 108 ms QT Int : 418 ms P-R-T Axes : 034 -57 095 degrees QTc Int : 485 ms NORMAL SINUS RHYTHM LEFT ANTERIOR FASCICULAR BLOCK NONSPECIFIC INTRAVENTRICULAR CONDUCTION DEFECT NONSPECIFIC ST AND T WAVE ABNORMALITY PROLONGED QT ABNORMAL ECG Confirmed by ALEXANDER MUJICA MD ([id number]) on 09/26/2019 12:15:25 PM Referred By: ALEXANDER AVILA Confirmed By:ALEXANDER MUJICA MD
[2019-09-26] MEDS ORDERED: PROPOFOL 1,000,000 MCG/100 ML VIAL ONE (13:05)
--- NOTE | 2019-09-26 13:21 | PN ---
Physical Exam: SUBJECTIVE: Patient seen and examined. No acute events overnight. Pt is intubated and sedated. OBJECTIVE: Vital Signs Period Temp Pulse Resp BP Sys/Louie Pulse Ox Last 24 Hr 88.2 F-98.3 F 65-97 21-35 66-148/44-117 86-96 GENERAL: The patient is intubated and sedated. HEAD: Normal with no signs of trauma. EYES: Pupils nonreactive, asummetri R>L ENT: Ears normal, nares patent, oropharynx clear without exudates, moist mucous membranes. NECK: Trachea midline, full range of motion, supple. LUNGS: Diffuse rhonchi BL, no wheezes, no crackles, no accessory muscle use. HEART: Regular rate and rhythm, S1, S2 without murmur, rub or gallop. ABDOMEN: Soft, nontender, nondistended, normoactive bowel sounds, no guarding, no rebound, no hepatosplenomegaly, no masses. EXTREMITIES: 2+ pulses, warm, well-perfused, 2+ pitting edema NEUROLOGICAL: Sedated. SKIN: Warm, dry, normal turgor, no rashes or lesions noted Laboratory Results - last 24 hr CBC, BMP 09/26/19 05:50 09/26/19 05:50 Active Medications Atorvastatin Calcium (Lipitor -) 20 mg PO HS BC Last Admin: 09/25/19 22:47 Dose: 20 mg Chlorhexidine Gluconate (Hibiclens For Decolonization -) 1 applic TP HS BC Last Admin: 09/26/19 02:55 Dose: 1 applic Propofol (Diprivan -) 1,000,000 mcg in 100 mls @ 3.402 mls/hr IV TITR BC; Protocol Last Admin: 09/26/19 02:56 Dose: 29.39 mcg/kg/min, 20 mls/hr Piperacillin Sod/Tazobactam (Sod 3.375 gm/ Dextrose) 50 mls @ 100 mls/hr IVPB Q6H-IV BC; Protocol Last Admin: 09/26/19 09:00 Dose: 100 mls/hr Insulin Human Regular 100 (units/ Sodium Chloride) 100 mls @ 147.8 mls/hr IVPB TITR BC; Protocol Last Titration: 09/26/19 11:00 Dose: 0.17 units/kg/hr, 7.5 mls/hr Lactated Ringer's (Lactated Ringers Solution) 1,000 ml in 1,000 mls @ 75 mls/ hr IV ASDIR [facility] Last Admin: 09/26/19 10:00 Dose: 75 mls/hr Levetiracetam (Keppra Injection -) 500 mg IVPB BID [facility] Last Admin: 09/26/19 10:54 Dose: 500 mg Mupirocin (Bactroban Ointment (For Decolonization) -) 1 applic NS BID [facility] Stop: 09/30/19 21:59 Last Admin: 09/26/19 11:37 Dose: 1 applic Pantoprazole Sodium (Protonix Iv) 40 mg IVPUSH BID [facility] Last Admin: 09/26/19 10:15 Dose: 40 mg Timolol Maleate (Timoptic 0.5%) 1 drop OU DAILY [facility] Last Admin: 09/26/19 11:38 Dose: Not Given ASSESSMENT/PLAN: 79 y/o male with PMH of brain tumor s/p radiation, DM, HTN, HLD presents to the ED from [facility] s/p cardiac arrest. Neuro -History of spinal meninges -Intubated; sedated -On propofol drip -CT head: large R middle cranial fossa mass lesion (no change from 09/09/19) -Neuro (Dr. Esquivel) and Neurosurgery (Dr. Dover) consulted -Cont home IV Keppra 500mg BID Cardio -History of HTN, HLD -S/p cardiac arrest -Hypothermia protocol initiated -Troponin downtrending -Echo: LV fxn normal -Cardiology consulted (Dr. Stern): does not appear to be in ACS -Monitor hemodynamics -Cont lipitor 20mg daily Pulmonary -CXR: bilateral infiltrate changes -ARDS protocol vent settings -Cont empiric IV zosyn for aspiration pna -F/u sputum cx Endo -History of DM -BGMS ACHS -Glucose poorly controlled -Start insulin drip GI -NPO -Transaminitis likely 2/2 hypoperfusion from CPR -Ppx with IV protonix BID ID -Afebrile; elevated lactic acid WBC 17.6, downtrending will cont to monitor -ID following (Dr. Simmons) -Cont empiric IV zosyn (day 2) for aspiration pna F: IV LR @ 100ml/hr E: replete lytes prn N: NPO Dispo: will continue to monitor in ICU Pt is DNR. No central lines or pressors Visit type - Emergency Visit Emergency Visit: No - New Patient This patient is new to me today: Yes Date on this admission: 09/26/19 - Critical Care Critical Care patient: Yes Total Critical Care Time (in minutes): 45 Critical Care Statement: The care of this patient involved high complexity decision making to prevent further life threatening deterioration of the patient 's condition and/or to evaluate & treat vital organ system(s) failure or risk of failure. ATTENDING PHYSICIAN STATEMENT I saw and evaluated the patient. I reviewed the resident's note and discussed the case with the resident. I agree with the resident's findings and plan as documented. SUBJECTIVE: OBJECTIVE: ASSESSMENT AND PLAN:
[2019-09-26] MEDS: ATORVASTATIN CA 20 MG TABLET (FP) PO SCH (22:23)
[2019-09-27] MEDS: INSULIN SLIDING SCALE (NOVOLOG) 1 VIAL SQ SCH ×7 (00:09→12:15)
[2019-09-27] MEDS: PROPOFOL 1,000,000 MCG/100 ML VIAL IV SCH ×2 (01:18→12:16)
[2019-09-27] MEDS: LACTATED RINGERS SOLUTION 1,000 ML/1,000 ML INFUS.BAG IV SCH ×2 (01:20→09:24)
[2019-09-27] MEDS ORDERED: PIPERACILLIN/TAZOBACTAM 3.375 GM VIAL IVPB ONE ×3 (04:42→16:36)
[2019-09-27] MEDS ORDERED: DEXTROSE 5%-WATER - 50 ML IVPB ONE ×3 (04:43→16:36)
[2019-09-27] MEDS: PIPERACILLIN/TAZOB 3.375 GM 3.375 GM in DEXTROSE 5%-WATER - 50 ML IVPB SCH ×3 (04:44→16:37)
[2019-09-27 06:51] LABS: BASO % 0.2 % (0-2.0); EOS % 0.1 % (0-4.5); HEMATOCRIT 43.5 % (35.4-49); HEMOGLOBIN 14.6 GM/dL (11.7-16.9); LYMPH % 6.6 % (8-40); MCH 29.1 pg (25.7-33.7); MCHC 33.6 g/dl (32.0-35.9); MEAN CELL VOLUME 86.7 fl (80-96); MEAN PLT VOLUME 10.4 fl (7.5-11.1); MONO % 3.6 % (3.8-10.2); NEUT % 89.5 % (42.8-82.8); PLATELET COUNT 141 K/MM3 (134-434); RBC 5.02 M/mm3 (4.00-5.60); RDW 16.1 % (11.9-15.9); WHITE BLOOD COUNT 15.7 K/mm3 (4.0-10.0)
[2019-09-27 07:12] LABS: ALBUMIN 2.2 g/dl (3.4-5.0); BILIRUBIN,TOTAL 1.2 mg/dL (0.2-1); BLOOD UREA NITROGEN 42.1 mg/dL (7-18); CALCIUM 8.6 mg/dL (8.5-10.1); MAGNESIUM 2.1 mg/dL (1.8-2.4); PHOSPHOROUS 4.3 mg/dL (2.5-4.9); POTASSIUM 4.8 mmol/L (3.5-5.1); TOT PROT 5.2 g/dl (6.4-8.2)
[2019-09-27] MEDS: PANTOPRAZOLE SODIUM 40 MG VIAL IVPUSH SCH (09:28)
[2019-09-27] MEDS: levETIRAcetam 500 MG/5 ML INJECTION VIAL IVPB SCH (09:28)
--- NOTE | 2019-09-27 09:29 | PN ---
Teaching Attending Note Name of Resident: Dede Cox ATTENDING PHYSICIAN STATEMENT I saw and evaluated the patient. I reviewed the resident's note and discussed the case with the resident. I agree with the resident's findings and plan as documented. SUBJECTIVE: Patient seen and examined in the ICU. Remains intubated. Sedation is off, minimal response to noxious stimuli. AC Mode of vent, 100% FiO2. No pressors. Intake & Output 09/24/19 09/25/19 09/26/19 09/27/19 23:59 23:59 23:59 23:59 Intake Total 2148 1841 1233 Output Total 350 300 200 Balance 1798 1541 1033 Weight 250 lb 205 lb 4.006 oz 211 lb 3.245 oz Last Vital Signs Temp Pulse Resp BP Pulse Ox 98.7 F 98 H 28 H 107/61 100 09/27/19 06:00 09/27/19 06:00 09/27/19 06:00 09/27/19 06:00 09/27/19 00:27 Active Medications Atorvastatin Calcium (Lipitor -) 20 mg PO HS BC Last Admin: 09/26/19 22:23 Dose: 20 mg Chlorhexidine Gluconate (Hibiclens For Decolonization -) 1 applic TP HS BC Last Admin: 09/26/19 22:22 Dose: 1 applic Propofol (Diprivan -) 1,000,000 mcg in 100 mls @ 3.402 mls/hr IV TITR BC; Protocol Last Admin: 09/27/19 01:18 Dose: 36.74 mcg/kg/min, 25 mls/hr Piperacillin Sod/Tazobactam (Sod 3.375 gm/ Dextrose) 50 mls @ 100 mls/hr IVPB Q6H-IV BC; Protocol Last Admin: 09/27/19 04:44 Dose: 100 mls/hr Lactated Ringer's (Lactated Ringers Solution) 1,000 ml in 1,000 mls @ 75 mls/ hr IV ASDIR [facility] Last Admin: 09/27/19 01:20 Dose: 75 mls/hr Insulin Aspart (Novolog Vial Sliding Scale -) 1 vial SQ Q2H BC; Protocol Last Admin: 09/27/19 06:18 Dose: Not Given Levetiracetam (Keppra Injection -) 500 mg IVPB BID [facility] Last Admin: 09/26/19 22:23 Dose: 500 mg Mupirocin (Bactroban Ointment (For Decolonization) -) 1 applic NS BID [facility] Stop: 09/30/19 21:59 Last Admin: 09/26/19 22:22 Dose: 1 applic Pantoprazole Sodium (Protonix Iv) 40 mg IVPUSH BID [facility] Last Admin: 09/26/19 22:23 Dose: 40 mg Timolol Maleate (Timoptic 0.5%) 1 drop OU DAILY [facility] Last Admin: 09/26/19 11:38 Dose: Not Given GENERAL: intubated; minimally responsive EYES: assymmetic (R>L); non-reactive, dilated EARS, NOSE, THROAT: absent gag reflex. NECK: no JVD; no lymphadenopathyy LUNGS: vented; slight rhonchi appreciated b/l. HEART: rrr s1; s2; no murmurs/rubs/gallops ABDOMEN: Soft, NT/ND+BS in all 4 quadrants MUSCULOSKELETAL: Normal range of motion at all joints. No bony deformities or tenderness. No CVA tenderness. EXTREMITIES: warm; well-perfused 2+ pitting edema B/L NEUROLOGICAL: minimal responsive SKIN: Warm, dry, normal turgor, no rashes or lesions noted. Laboratory Results - last 24 hr 09/26/19 09/26/19 09/26/19 05:50 09:50 11:22 WBC RBC Hgb Hct MCV MCH MCHC RDW Plt Count MPV Absolute Neuts (auto) Neutrophils % Lymphocytes % Monocytes % Eosinophils % Basophils % Nucleated RBC % Sodium 149 H Potassium 3.7 Chloride 119 H Carbon Dioxide 19 L Anion Gap 12 BUN 26.8 H Creatinine 1.3 Est GFR (CKD-EPI)AfAm 61.00 Est GFR (CKD-EPI)NonAf 52.63 POC Glucometer 374 315 Random Glucose 406 H* Lactic Acid Calcium 8.5 Phosphorus 3.8 Magnesium 2.2 Total Bilirubin 2.0 H AST 75 H ALT 115 H Alkaline Phosphatase 107 Troponin I 0.27 H Total Protein 5.7 L Albumin 2.6 L 09/26/19 09/26/19 09/26/19 12:09 13:54 14:54 WBC RBC Hgb Hct MCV MCH MCHC RDW Plt Count MPV Absolute Neuts (auto) Neutrophils % Lymphocytes % Monocytes % Eosinophils % Basophils % Nucleated RBC % Sodium Potassium Chloride Carbon Dioxide Anion Gap BUN Creatinine Est GFR (CKD-EPI)AfAm Est GFR (CKD-EPI)NonAf POC Glucometer 322 250 Random Glucose Lactic Acid 4.1 H* Calcium Phosphorus Magnesium Total Bilirubin AST ALT Alkaline Phosphatase Troponin I Total Protein Albumin 09/26/19 09/26/19 09/26/19 15:50 17:25 18:33 WBC RBC Hgb Hct MCV MCH MCHC RDW Plt Count MPV Absolute Neuts (auto) Neutrophils % Lymphocytes % Monocytes % Eosinophils % Basophils % Nucleated RBC % Sodium Potassium Chloride Carbon Dioxide Anion Gap BUN Creatinine Est GFR (CKD-EPI)AfAm Est GFR (CKD-EPI)NonAf POC Glucometer 223 168 144 Random Glucose Lactic Acid Calcium Phosphorus Magnesium Total Bilirubin AST ALT Alkaline Phosphatase Troponin I Total Protein Albumin 09/26/19 09/26/19 09/26/19 20:18 21:41 23:38 WBC RBC Hgb Hct MCV MCH MCHC RDW Plt Count MPV Absolute Neuts (auto) Neutrophils % Lymphocytes % Monocytes % Eosinophils % Basophils % Nucleated RBC % Sodium Potassium Chloride Carbon Dioxide Anion Gap BUN Creatinine Est GFR (CKD-EPI)AfAm Est GFR (CKD-EPI)NonAf POC Glucometer 127 93 96 Random Glucose Lactic Acid Calcium Phosphorus Magnesium Total Bilirubin AST ALT Alkaline Phosphatase Troponin I Total Protein Albumin 09/27/19 09/27/19 09/27/19 01:45 04:12 05:43 WBC 15.7 H RBC 5.02 Hgb 14.6 Hct 43.5 MCV 86.7 MCH 29.1 MCHC 33.6 RDW 16.1 H Plt Count 141 D MPV 10.4 Absolute Neuts (auto) 14.0 H Neutrophils % 89.5 H D Lymphocytes % 6.6 L D Monocytes % 3.6 L Eosinophils % 0.1 D Basophils % 0.2 Nucleated RBC % 0 Sodium Potassium Chloride Carbon Dioxide Anion Gap BUN Creatinine Est GFR (CKD-EPI)AfAm Est GFR (CKD-EPI)NonAf POC Glucometer 104 115 Random Glucose Lactic Acid Calcium Phosphorus Magnesium Total Bilirubin AST ALT Alkaline Phosphatase Troponin I Total Protein Albumin 09/27/19 09/27/19 09/27/19 05:43 06:14 09:19 WBC RBC Hgb Hct MCV MCH MCHC RDW Plt Count MPV Absolute Neuts (auto) Neutrophils % Lymphocytes % Monocytes % Eosinophils % Basophils % Nucleated RBC % Sodium 150 H Potassium 4.8 Chloride 118 H Carbon Dioxide 22 Anion Gap 9 BUN 42.1 H Creatinine 2.0 H Est GFR (CKD-EPI)AfAm 36.24 Est GFR (CKD-EPI)NonAf 31.26 POC Glucometer 103 131 Random Glucose 114 H Lactic Acid Calcium 8.6 Phosphorus 4.3 Magnesium 2.1 Total Bilirubin 1.2 H AST 39 H ALT 71 H Alkaline Phosphatase 83 Troponin I Total Protein 5.2 L Albumin 2.2 L ASSESSMENT/PLAN: S/P CP arrest with CELIO Meningioma s/p radiation DM HTN HLD R/O Sepsis AC Mode of vent IVF Strict I & O Sedation vacation to assess mental status Glycemic control 140 to 180 DNR Requires ICU monitoring Dr Cardoso Critical care time spent in reviewing chart, evaluating patient and formulating plan - 36 minutes.
--- NOTE | 2019-09-27 09:40 | CONSULT ---
Consult - text type - Consultation Consultation Note: NEUROSURGERY CONSULTATION Patient seen and examined on the evening of September 26, 2019. Patient sedated with propofol. Extensive discussion with the family concerning his clinical course and current state as well as prognosis. Primary issue is extent of potential anoxic injury from cardiac event. Will await apnea test and CT scan 48 hours after cardiac event for further prognostic information. Potential for poor outcome versus best case scenario of returning to recent pre-morbid state discussed in detail. Family understands these issues well and ask intelligent questions.
[2019-09-27 10:05] LABS: ANISOCYTOSIS 2+; MACROCYTOSIS 0; OVALOCYTE 1+; PLATELET ESTIMATE DECREASED
[2019-09-27] MEDS: MUPIROCIN 2% TOPICAL OINTMENT FOR DECOLONIZATION NS SCH (10:30)
--- NOTE | 2019-09-27 11:00 | PN ---
Physical Exam: SUBJECTIVE: Patient seen this morning, without any events overnight. OBJECTIVE: Vital Signs Period Temp Pulse Resp BP Sys/Louie Pulse Ox Last 24 Hr 91.2 F-98.7 F 67-98 15-32 82-114/50-61 98-100 GENERAL: patient is sedated HEAD: Normal with no signs of trauma. EYES: pupils fixed ENT: intubated LUNGS: crackles heard b/l HEART: Regular rate and rhythm, S1, S2 ABDOMEN: Soft, nontender, nondistended, normoactive bowel sounds, EXTREMITIES: 2+ pulses NEUROLOGICAL: slight withdrawl from painful sitmuli SKIN: Warm, dry, normal turgor, no rashes or lesions noted CBC, BMP 09/27/19 05:43 09/27/19 05:43 Active Medications Atorvastatin Calcium (Lipitor -) 20 mg PO HS BC Last Admin: 09/26/19 22:23 Dose: 20 mg Chlorhexidine Gluconate (Hibiclens For Decolonization -) 1 applic TP HS BC Last Admin: 09/26/19 22:22 Dose: 1 applic Propofol (Diprivan -) 1,000,000 mcg in 100 mls @ 3.402 mls/hr IV TITR BC; Protocol Last Admin: 09/27/19 01:18 Dose: 36.74 mcg/kg/min, 25 mls/hr Piperacillin Sod/Tazobactam (Sod 3.375 gm/ Dextrose) 50 mls @ 100 mls/hr IVPB Q6H-IV BC; Protocol Last Admin: 09/27/19 09:24 Dose: 100 mls/hr Lactated Ringer's (Lactated Ringers Solution) 1,000 ml in 1,000 mls @ 75 mls/ hr IV ASDIR [facility] Last Admin: 09/27/19 09:24 Dose: 75 mls/hr Insulin Aspart (Novolog Vial Sliding Scale -) 1 vial SQ Q2H BC; Protocol Last Admin: 09/27/19 09:23 Dose: Not Given Levetiracetam (Keppra Injection -) 500 mg IVPB BID [facility] Last Admin: 09/27/19 09:28 Dose: 500 mg Mupirocin (Bactroban Ointment (For Decolonization) -) 1 applic NS BID [facility] Stop: 09/30/19 21:59 Last Admin: 09/26/19 22:22 Dose: 1 applic Pantoprazole Sodium (Protonix Iv) 40 mg IVPUSH BID [facility] Last Admin: 09/27/19 09:28 Dose: 40 mg Timolol Maleate (Timoptic 0.5%) 1 drop OU DAILY [facility] Last Admin: 09/26/19 11:38 Dose: Not Given ASSESSMENT/PLAN: 79 y/o male with PMH of brain tumor s/p radiation, DM, HTN, HLD presents to the ED from [facility] s/p cardiac arrest. Neuro -Intubated; sedated -On propofol drip -CT head: large R middle cranial fossa mass lesion (no change from 09/09/19) -Neuro (Dr. Esquivel) and Neurosurgery (Dr. Dover) consulted -Cont home IV Keppra 500mg BID - f/u repeat Head CT, per neuro consider mannitol if extensive edema noted - does not meet criteria for brain Cardio -S/p cardiac arrest -Hypothermia protocol initiated and completed -Troponin downtrending -Echo: LV fxn normal -Cardiology consulted (Dr. Stern): does not appear to be in ACS -Monitor hemodynamics -Cont lipitor 20mg daily Pulmonary -CXR: bilateral infiltrate changes -ARDS protocol vent settings -CXR unchanged from yesterday -Cont empiric IV zosyn for aspiration pna -F/u sputum cx GI -NPO -Transaminitis likely 2/2 hypoperfusion from CPR, trending down -Ppx with IV protonix BID Endo -History of DM -BGMS q4h -SS ID -Afebrile; elevated lactic acid WBC 17.6, downtrending will cont to monitor -ID following (Dr. Simmons) -Cont empiric IV zosyn (day 3) for aspiration pna - Urine culture and blood culture with no growth F: IV LR @ 100ml/hr E: replete lytes prn N: NPO Dispo: will continue to monitor in ICU Pt is DNR. No central lines or pressors, discussed at length with family poor prognosis, likely will make patient comfort care in near future, f/u head CT as per neuro Visit type - Emergency Visit Emergency Visit: No - New Patient This patient is new to me today: No - Critical Care Critical Care patient: Yes Total Critical Care Time (in minutes): 40 Critical Care Statement: The care of this patient involved high complexity decision making to prevent further life threatening deterioration of the patient 's condition and/or to evaluate & treat vital organ system(s) failure or risk of failure. ATTENDING PHYSICIAN STATEMENT I saw and evaluated the patient. I reviewed the resident's note and discussed the case with the resident. I agree with the resident's findings and plan as documented. SUBJECTIVE: OBJECTIVE: ASSESSMENT AND PLAN:
--- NOTE | 2019-09-27 11:14 | PN ---
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, Physician - Current Medication List Current Medications: Active Medications Atorvastatin Calcium (Lipitor -) 20 mg PO HS BC Last Admin: 09/26/19 22:23 Dose: 20 mg Chlorhexidine Gluconate (Hibiclens For Decolonization -) 1 applic TP HS [facility] Last Admin: 09/26/19 22:22 Dose: 1 applic Propofol (Diprivan -) 1,000,000 mcg in 100 mls @ 3.402 mls/hr IV TITR BC; Protocol Last Admin: 09/27/19 01:18 Dose: 36.74 mcg/kg/min, 25 mls/hr Piperacillin Sod/Tazobactam (Sod 3.375 gm/ Dextrose) 50 mls @ 100 mls/hr IVPB Q6H-IV BC; Protocol Last Admin: 09/27/19 09:24 Dose: 100 mls/hr Lactated Ringer's (Lactated Ringers Solution) 1,000 ml in 1,000 mls @ 75 mls/ hr IV ASDIR [facility] Last Admin: 09/27/19 09:24 Dose: 75 mls/hr Insulin Aspart (Novolog Vial Sliding Scale -) 1 vial SQ Q2H BC; Protocol Last Admin: 09/27/19 09:23 Dose: Not Given Levetiracetam (Keppra Injection -) 500 mg IVPB BID [facility] Last Admin: 09/27/19 09:28 Dose: 500 mg Mupirocin (Bactroban Ointment (For Decolonization) -) 1 applic NS BID [facility] Stop: 09/30/19 21:59 Last Admin: 09/26/19 22:22 Dose: 1 applic Pantoprazole Sodium (Protonix Iv) 40 mg IVPUSH BID [facility] Last Admin: 09/27/19 09:28 Dose: 40 mg Timolol Maleate (Timoptic 0.5%) 1 drop OU DAILY [facility] Last Admin: 09/26/19 11:38 Dose: Not Given - Objective Vital Signs: Vital Signs Temperature 98.7 F 09/27/19 06:00 Pulse Rate 98 H 09/27/19 06:00 Respiratory Rate 30 H 09/27/19 08:50 Blood Pressure 107/61 09/27/19 06:00 O2 Sat by Pulse Oximetry (%) 100 09/27/19 00:27 Cardiovascular: Yes: S1, S2 Respiratory: Yes: Mechanically Ventilated Gastrointestinal: Yes: Normal Bowel Sounds, Soft Labs: CBC, BMP 09/27/19 05:43 09/27/19 05:43 INR, PTT INR 1.10 (0.83-1.09) H 09/25/19 10:00 Assessment/Plan Problems (1) Acute hypoxemic respiratory failure Assessment/Plan: -ICU -mechanical ventilated AC mode, TV 450, rate 16, peep 5 -CXR shows shallow inspiration, no pneumothorax or large pleural effusion, no evidence of pulmonary infiltrates or pulmonary edema -keep SpO 2>90% -ABGs Code(s): J96.01 - ACUTE RESPIRATORY FAILURE WITH HYPOXIA (2) COPD (chronic obstructive pulmonary disease) Assessment/Plan: -ICU CARE -mechanical ventilated AC mode, TV 450, rate 16, peep 5 -CXR shows shallow inspiration, no pneumothorax or large pleural effusion, no evidence of pulmonary infiltrates or pulmonary edema -keep SpO 2>90% Code(s): J44.9 - CHRONIC OBSTRUCTIVE PULMONARY DISEASE, UNSPECIFIED (3) Diabetes Assessment/Plan: -[facility] -will hold Lantus Code(s): E11.9 - TYPE 2 DIABETES MELLITUS WITHOUT COMPLICATIONS Qualifiers: Diabetes mellitus type: type 2 (4) Meningioma Assessment/Plan: -Family deciding on course of treatmnet--will await decision (5) Cardiac arrest Assessment/Plan: -received 2 rounds of epi in the field and ROSC was achieved at 25min -ICU -Cardiology consult -Hypothermia protocol initiated -mechanically ventilated -tele monitoring -Echo ordered -troponin neg x 1 -pending Head CT scan Code(s): I46.9 - CARDIAC ARREST, CAUSE UNSPECIFIED (6) Transaminitis Assessment/Plan: -AST 186, ALT 158, Alk Phos 144 -Abdominal US Code(s): R74.0 - NONSPEC ELEV OF LEVELS OF TRANSAMNS & LACTIC ACID DEHYDRGNSE (7) Hypernatremia Assessment/Plan: -Na 151 -monitor Na level -consider renal consult if show uptrend Code(s): E87.0 - HYPEROSMOLALITY AND HYPERNATREMIA (8) Seizures Assessment/Plan: -Keppra BID -Neurology consult -neuro checks -pending Head CT -Brain MRI from 09/10 shows large mass is noted in right middle cranial fossa with medial extension along the right tentorium cerebelli compressing the right cerebral peduncle. upper brainstem, caudal extension of the mass through the the floor of the right middle cranial fossa below the base of the skull, craniocaudal dimension of mass is 5.7cm, extensive vasogenic edema n right cerebral hemisphere, mass effect on right laterval ventricle, third ventriclemild shift of the septum pellucidumto the left side Code(s): R56.9 - UNSPECIFIED CONVULSIONS (9) Lactic acidosis Assessment/Plan: -LA 8.1, repeat ordered -will monitor for downtrend Code(s): E87.2 - ACIDOSIS (10) Leucocytosis Assessment/Plan: -WBC 17.6 -ID consult -CXR shows shallow inspiration, no pneumothorax or large pleural effusion, no evidence of pulmonary infiltrates or pulmonary edema -BC -UA/CS ordered Code(s): D72.829 - ELEVATED WHITE BLOOD CELL COUNT, UNSPECIFIED
--- NOTE | 2019-09-27 11:42 | PN ---
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 (short form) - Note 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: Neurology Chief Complaint: Cardiac Arrest Limitations to Obtaining History: Clinical Condition History of Present Illness: Patient is a 79 y/o male with past medical history of COPD HTN, DM from [facility]. Patient is s/p cardiac arrest. As per EMS patient was eating a piece of bread when he began to choke. Staff at [facility] performed Heimlich manuver and patient lost pulse and CPR was initiated and continued by EMS. Patient received 2 rounds of epi in the field and ROSC was achieved at 25min. Patient is currently intubated and sedated, history received from chart. Head CT performed and showed no evidence of hemorrhage. A very large mass lesion without interval change from prior MRI of 09/09/2019. However, has increased in size in comparison with CT of 10/13/18 with increased associated bone erosion. Was contacted by nurse practitioner on patient's arrival and discussed case. There was concern this patient reportedly was having jerking activity on her presentation and I informed this practitioner that this is likely myoclonic jerks due to underlying anoxic brain injury. We'll order a repeat CT to reevaluate aec-white differentiation, cerebral edema. Possibly poor prognosis, goal of care to be determined. Consider Mannitol if extensive cerebral edema were to be noted on imaging. Patient was started on Keppra for seizure prevention. Patient currently in ICU under critical care monitoring and is off sedation. Seen with nurse at bedside, Did have some minimal pupillary response to light reflex but no gag and minimal corneal reflex, is overbreathing vent and does not meet criteria for brain at this time as he demonstrated brainstem reflexes. No significant improvement overnight. Discussed with nurse regarding repeat CT head to eval for changes related to possible anoxic brain injury. Active Medications Atorvastatin Calcium (Lipitor -) 20 mg PO HS BC Last Admin: 09/26/19 22:23 Dose: 20 mg Chlorhexidine Gluconate (Hibiclens For Decolonization -) 1 applic TP HS BC Last Admin: 09/26/19 22:22 Dose: 1 applic Propofol (Diprivan -) 1,000,000 mcg in 100 mls @ 3.402 mls/hr IV TITR BC; Protocol Last Admin: 09/27/19 01:18 Dose: 36.74 mcg/kg/min, 25 mls/hr Piperacillin Sod/Tazobactam (Sod 3.375 gm/ Dextrose) 50 mls @ 100 mls/hr IVPB Q6H-IV BC; Protocol Last Admin: 09/27/19 09:24 Dose: 100 mls/hr Lactated Ringer's (Lactated Ringers Solution) 1,000 ml in 1,000 mls @ 75 mls/ hr IV ASDIR BC Last Admin: 09/27/19 09:24 Dose: 75 mls/hr Insulin Aspart (Novolog Vial Sliding Scale -) 1 vial SQ Q2H BC; Protocol Last Admin: 09/27/19 09:23 Dose: Not Given Levetiracetam (Keppra Injection -) 500 mg IVPB BID BC Last Admin: 09/27/19 09:28 Dose: 500 mg Mupirocin (Bactroban Ointment (For Decolonization) -) 1 applic NS BID [facility] Stop: 09/30/19 21:59 Last Admin: 09/26/19 22:22 Dose: 1 applic Pantoprazole Sodium (Protonix Iv) 40 mg IVPUSH BID [facility] Last Admin: 09/27/19 09:28 Dose: 40 mg Timolol Maleate (Timoptic 0.5%) 1 drop OU DAILY [facility] Last Admin: 09/26/19 11:38 Dose: Not Given Physical Examination Vital Signs: Vital Signs Period Temp Pulse Resp BP Sys/Louie Pulse Ox Last 24 Hr 94.0 F-98.7 F 74-98 15-32 82-114/50-61 98-100 Constitutional: Yes: Other (sedated) Eyes: Yes: Conjunctiva Clear, Other (R pupil dilated, L pupil miniml response to light) HENT: Yes: Atraumatic Cardiovascular: Yes: Tachycardia Respiratory: Yes: Regular, Mechanically Ventilated, Rhonchi Gastrointestinal: Yes: Normal Bowel Sounds, Soft Renal/: Yes: Navarro Present Musculoskeletal: Yes: Muscle Weakness Extremities: Yes: WNL Edema: Yes Edema: LLE: Trace, RLE: Trace Neurological: no significant abnormal movements noted, pupil with minimal response to light, minimal corneal, no gag reflex, overbreathing vent Labs: CBCD WBC 15.7 K/mm3 (4.0-10.0) H 09/27/19 05:43 RBC 5.02 M/mm3 (4.00-5.60) 09/27/19 05:43 Hgb 14.6 GM/dL (11.7-16.9) 09/27/19 05:43 Hct 43.5 % (35.4-49) 09/27/19 05:43 MCV 86.7 fl (80-96) 09/27/19 05:43 MCHC 33.6 g/dl (32.0-35.9) 09/27/19 05:43 RDW 16.1 % (11.9-15.9) H 09/27/19 05:43 Plt Count 141 K/MM3 (134-434) D 09/27/19 05:43 MPV 10.4 fl (7.5-11.1) 09/27/19 05:43 CMP Sodium 150 mmol/L (136-145) H 09/27/19 05:43 Potassium 4.8 mmol/L (3.5-5.1) 09/27/19 05:43 Chloride 118 mmol/L (98-107) H 09/27/19 05:43 Carbon Dioxide 22 mmol/L (21-32) 09/27/19 05:43 Anion Gap 9 MMOL/L (8-16) 09/27/19 05:43 BUN 42.1 mg/dL (7-18) H 09/27/19 05:43 Creatinine 2.0 mg/dL (0.55-1.3) H 09/27/19 05:43 Random Glucose 114 mg/dL (74-106) H 09/27/19 05:43 Calcium 8.6 mg/dL (8.5-10.1) 09/27/19 05:43 Total Bilirubin 1.2 mg/dL (0.2-1) H 09/27/19 05:43 AST 39 U/L (15-37) H 09/27/19 05:43 ALT 71 U/L (13-61) H 09/27/19 05:43 Alkaline Phosphatase 83 U/L (45-117) 09/27/19 05:43 Total Protein 5.2 g/dl (6.4-8.2) L 09/27/19 05:43 Albumin 2.2 g/dl (3.4-5.0) L 09/27/19 05:43 CARDIAC ENZYMES Creatine Kinase 1231 U/L (26-308) H 09/25/19 20:25 Troponin I 0.27 ng/ml (0.00-0.05) H 09/26/19 05:50 Assessment/Plan Patient is a 79 y/o male with past medical history of COPD HTN, DM from [facility]. Patient is s/p cardiac arrest. As per EMS patient was eating a piece of bread when he began to choke. Staff [facility] performed Heimlich manuver and patient lost pulse and CPR was initiated and continued by EMS. Patient received 2 rounds of epi in the field and ROSC was achieved at 25min. Patient is currently intubated and sedated, history received from chart. Head CT performed and showed no evidence of hemorrhage. A very large mass lesion without interval change from prior MRI of 09/09/2019. However, has increased in size in comparison with CT of 10/13/18 with increased associated bone erosion. Was contacted by nurse practitioner on patient's arrival and discussed case. There was concern this patient reportedly was having jerking activity on her presentation and I informed this practitioner that this is likely myoclonic jerks due to underlying anoxic brain injury. We'll order a repeat CT to reevaluate ace-white differentiation, cerebral edema. Possibly poor prognosis, goal of care to be determined. Consider Mannitol if extensive cerebral edema were to be noted on imaging. Patient was started on Keppra for seizure prevention. Patient currently in ICU under critical care monitoring and is off sedation. Seen with nurse at bedside, Did have some minimal pupillary response to light reflex but no gag and minimal corneal reflex, is overbreathing vent and does not meet criteria for brain at this time as he demonstrated brainstem reflexes. No significant improvement overnight. Discussed with nurse regarding repeat CT head to eval for changes related to possible anoxic brain injury. Critical care time 40 mins
--- NOTE | 2019-09-27 12:09 | PN ---
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 (short form) - Note 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: s: intubated, sedated Current Medications Atorvastatin Calcium (Lipitor -) 20 mg PO HS BC Last Admin: 09/26/19 22:23 Dose: 20 mg Chlorhexidine Gluconate (Hibiclens For Decolonization -) 1 applic TP HS [facility] Last Admin: 09/26/19 22:22 Dose: 1 applic Propofol (Diprivan -) 1,000,000 mcg in 100 mls @ 3.402 mls/hr IV TITR BC; Protocol Last Admin: 09/27/19 01:18 Dose: 36.74 mcg/kg/min, 25 mls/hr Piperacillin Sod/Tazobactam (Sod 3.375 gm/ Dextrose) 50 mls @ 100 mls/hr IVPB Q6H-IV BC; Protocol Last Admin: 09/27/19 09:24 Dose: 100 mls/hr Lactated Ringer's (Lactated Ringers Solution) 1,000 ml in 1,000 mls @ 75 mls/ hr IV ASDIR [facility] Last Admin: 09/27/19 09:24 Dose: 75 mls/hr Insulin Aspart (Novolog Vial Sliding Scale -) 1 vial SQ Q2H BC; Protocol Last Admin: 09/27/19 09:23 Dose: Not Given Levetiracetam (Keppra Injection -) 500 mg IVPB BID [facility] Last Admin: 09/27/19 09:28 Dose: 500 mg Mupirocin (Bactroban Ointment (For Decolonization) -) 1 applic NS BID [facility] Stop: 09/30/19 21:59 Last Admin: 09/26/19 22:22 Dose: 1 applic Pantoprazole Sodium (Protonix Iv) 40 mg IVPUSH BID [facility] Last Admin: 09/27/19 09:28 Dose: 40 mg Timolol Maleate (Timoptic 0.5%) 1 drop OU DAILY [facility] Last Admin: 09/26/19 11:38 Dose: Not Given Vital Signs Period Temp Pulse Resp BP Sys/Louie Pulse Ox Last 24 Hr 94.0 F-98.7 F 74-98 15-32 82-114/50-61 98-100 Constitutional: Yes: Other (intubated, sedated.) Cardiovascular: Yes: Regular Rate and Rhythm Respiratory: Yes: Rhonchi, Other (= breath sounds b/l) Gastrointestinal: Yes: Soft Edema: No no jaundice, diaphoresis not agitated tele: sinus Assessment/Plan IMP: Acute respiratory failure secondary to suspected aspiration event with cardiopulmonary arrest in setting of above (reported PEA arrest, likely due to hypoxia) Probable aspiration PNA, Xray now appears to show b/l infiltrates (left>> right) Shock liver secondary to cardiopulmonary arrest Hypernatremia Abnormal ECG Equivocal/borderline TnI with flat trend, unlikely representing primary NJ. Most likely secondary to demand ischemia in setting of prolonged cardiopulm recussitation vs myocardial necrosis from sepsis REC: 1. ICU with tele monitoring, cooling protocol as per Critical Care Team. 2. Vent support, vent management as per Critical Care. 3. F/u cultures, choice of abx for possible aspiration as per Critical Care team and ID 4. Free water repletion. 5. Currently not requiring pressors. 6. Echo showed grossly normal biV fxn 7. Head CT with no evidence of ICH 8. Grossly normal LVEF with flat/equivocal TnI trend unlikely from type I NJ. More likely due to demand ischemia in setting of prolonged recussitation vs myocardial necrosis from sepsis. 9. CXR now with nita infiltrates L>R, Likely suspected aspiration event leading hypoxic respiratory failure, cardiac arrest with prolonged resuscitation
[2019-09-27] MEDS: TIMOLOL 0.5% OPHTHALMIC SOL 5 ML BOTTLE OU SCH (12:12)
--- NOTE | 2019-09-27 12:43 | PN ---
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, Physician History of Present Illness: COMPLETED HYPOTHERMIA PROTOCOL UNRESPONSIVE ON VENTILATOR AFEBRILE WBC ELEVATED C/S NO GROWTH - Current Medication List Current Medications: Active Medications Atorvastatin Calcium (Lipitor -) 20 mg PO HS BC Last Admin: 09/26/19 22:23 Dose: 20 mg Chlorhexidine Gluconate (Hibiclens For Decolonization -) 1 applic TP HS BC Last Admin: 09/26/19 22:22 Dose: 1 applic Propofol (Diprivan -) 1,000,000 mcg in 100 mls @ 3.402 mls/hr IV TITR BC; Protocol Last Admin: 09/27/19 12:16 Dose: 25 mcg/kg/min, 17.01 mls/hr Piperacillin Sod/Tazobactam (Sod 3.375 gm/ Dextrose) 50 mls @ 100 mls/hr IVPB Q6H-IV BC; Protocol Last Admin: 09/27/19 09:24 Dose: 100 mls/hr Lactated Ringer's (Lactated Ringers Solution) 1,000 ml in 1,000 mls @ 75 mls/ hr IV ASDIR BC Last Admin: 09/27/19 09:24 Dose: 75 mls/hr Insulin Aspart (Novolog Vial Sliding Scale -) 1 vial SQ ACHS BC; Protocol Levetiracetam (Keppra Injection -) 500 mg IVPB BID [facility] Last Admin: 09/27/19 09:28 Dose: 500 mg Mupirocin (Bactroban Ointment (For Decolonization) -) 1 applic NS BID [facility] Stop: 09/30/19 21:59 Last Admin: 09/27/19 10:30 Dose: 1 applic Pantoprazole Sodium (Protonix Iv) 40 mg IVPUSH BID [facility] Last Admin: 09/27/19 09:28 Dose: 40 mg Timolol Maleate (Timoptic 0.5%) 1 drop OU DAILY [facility] Last Admin: 09/27/19 12:12 Dose: 1 drop - Objective Vital Signs: Vital Signs Temperature 98.7 F 09/27/19 06:00 Pulse Rate 98 H 09/27/19 06:00 Respiratory Rate 30 H 09/27/19 08:50 Blood Pressure 107/61 09/27/19 06:00 O2 Sat by Pulse Oximetry (%) 100 09/27/19 00:27 Constitutional: Yes: No Distress Eyes: Yes: Conjunctiva Clear Cardiovascular: Yes: Regular Rate and Rhythm, S1, S2 Respiratory: Yes: Mechanically Ventilated Gastrointestinal: Yes: Normal Bowel Sounds, Soft. No: Tenderness Edema: LLE: 1+, RLE: 1+ Labs: CBC, BMP 09/27/19 05:43 09/27/19 05:43 INR, PTT INR 1.10 (0.83-1.09) H 09/25/19 10:00 Assessment/Plan S/P CARDIOPULMONARY ARREST PROBABLE ASPIRATION LEUKOCYTOSIS RENAL FAILURE CONTINUE VENTILATORY/ HEMODYNAMIC SUPPORT EMPIRIC ZOSYN
[2019-09-27] MEDS ORDERED: INSULIN SLIDING SCALE (NOVOLOG) 1 VIAL SQ SCH (16:30)
--- NOTE | 2019-09-27 17:26 | EKG ---
Test Reason : Blood Pressure : / mmHG Vent. Rate : 146 BPM Atrial Rate : 036 BPM P-R Int : 000 ms QRS Dur : 130 ms QT Int : 346 ms P-R-T Axes : 000 -69 108 degrees QTc Int : 539 ms ATRIAL FIBRILLATION LEFT AXIS DEVIATION RIGHT BUNDLE BRANCH BLOCK LEFT VENTRICULAR HYPERTROPHY WITH REPOLARIZATION ABNORMALITY ABNORMAL ECG WHEN COMPARED WITH ECG OF 13-OCT-2018 18:21, RIGHT BUNDLE BRANCH BLOCK HAS REPLACED NON-SPECIFIC INTRA-VENTRICULAR CONDUCTION BLOCK CLINICAL CORRELATION IS RECOMMENDED Confirmed by GLENN RAMIRES MD ([id number]) on 09/27/2019 5:26:48 PM Referred By: Confirmed By:GLENN RAMIRES MD
[2019-09-27 18:26] VITALS: TEMP 99.9
[2019-09-27] MEDS ORDERED: LORazepam 2 MG/ML SDV VIAL IVPUSH ONE (19:04)
[2019-09-27] MEDS ORDERED: MORPHINE SULFATE 2 MG/ML VIAL IVPUSH ONE (19:05)
[2019-09-27] MEDS ORDERED: MORPHINE SULFATE/0.9% NACL/PF 100 MG/100 ML BAG IVPB SCH (19:15)
[2019-09-27 19:50] VITALS: BMI 33.0
--- NOTE | 2019-09-27 21:09 | PN ---
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 (short form) - Note 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: Nurse paged me to exam patient at 20:55. Pt was unresponsive, even to painful stimuli. Pupils fixed and non-reactive. Pt has no spontaneous breathing, no heart sounds or breath sounds. No carotid or femoral pulses present. No heart sounds or breath sounds heard. Time of pronounced at 21:01 on 09/27/2019. Family notified by myself. Grievance services offered to family. Body to be released to home of family's choice.
[2019-09-27 21:32] VITALS: BP 153/74; PULSE 140
== END 2019-09-27 21:01 | disposition expired | DRG 208 ==
LOC: JER 09:50 → JERBED 12:46 → JICU 09-26 00:21
PROVIDERS: ADMIT Family Medicine; ATTEND Family Medicine
PROC: 5A1945Z Respiratory Ventilation, 24-96 Consecutive Hours (ICD-10-PCS; principal; 2019-09-25)
PROC: 0BH17EZ Insertion of Endotracheal Airway into Trachea, Via Natural or Artificial Opening (ICD-10-PCS; 2019-09-26)
DX: J96.01 Acute respiratory failure with hypoxia (principal); G93.6 Cerebral edema; J69.0 Pneumonitis due to inhalation of food and vomit; I24.8 Other forms of acute ischemic heart disease; E87.0 Hyperosmolality and hypernatremia; E87.2 Acidosis; E87.1 Hypo-osmolality and hyponatremia; I46.9 Cardiac arrest, cause unspecified; E11.9 Type 2 diabetes mellitus without complications; I10 Essential (primary) hypertension; J44.9 Chronic obstructive pulmonary disease, unspecified; T68.XXXA Hypothermia, initial encounter; R56.9 Unspecified convulsions; D72.829 Elevated white blood cell count, unspecified; D29.1 Benign neoplasm of prostate; J09.X2 Influenza due to identified novel influenza A virus with other respiratory manifestations; R41.82 Altered mental status, unspecified
CPT/HCPCS: 36415; 36600; 70450-TC; 71045-TC-FY; 80053; 81003; 82375; 82550; 82553; 82803; 82962; 83050; 83605; 83735; 84100; 84484; 85025; 85027; 85610; 85730; 86850; 86900; 86901; 87040; 87086; 93005; 93010; 93306-TC; 94002; 99285-25